=== PATIENT | female | born 1985 | race Caucasian/White ===

== ENCOUNTER → 2018-03-18 | Outpatient (CLI) | payer OTHER ==
[2018-03-18 09:30] LABS: ALT 25 U/L (9-52); AST 22 U/L (14-36); Albumin 4.2 g/dL (3.5-5.0); Alkaline Phosphatase 81 U/L (38-126); Blood Urea Nitrogen 19 mg/dL (7-17); Carbon Dioxide 27 mmol/L (22-30); Cholesterol 193 mg/dL (<200); Glucose 84 mg/dL (74-99); HDL Cholesterol 57 mg/dL (40-60); LDL Cholesterol,Calculated 108 mg/dL (0-99); Potassium 4.3 mmol/L (3.5-5.1); Sodium 144 mmol/L (137-145); Total Bilirubin 0.5 mg/dL (0.2-1.3); Triglycerides 139 mg/dL (<150)
[2018-03-18 09:34] LABS: Anion Gap 13 mmol/L; Chloride 104 mmol/L (98-107)
== END | disposition home or self-care (01) ==
LOC: LABWHC1 08:37
PROVIDERS: ATTEND Physician Assistant Medical
DX: I63.9 Cerebral infarction, unspecified (principal)
CPT/HCPCS: 36415; 80053; 80061

== ENCOUNTER → 2018-09-22 | Outpatient (CLI) | payer OTHER ==
[~2018-09-22] MED LIST: REGADENOSON 0.4 MG/5 ML SYRINGE IV ONE
[2018-09-22 08:37] LABS: Basophils % (A) 1 %; Eosinophils # (A) 0.1 k/uL (0-0.7); Eosinophils % (A) 2 %; HGB 14.2 gm/dL (11.4-16.0); Lymphocytes # (A) 1.4 k/uL (1.0-4.8); Lymphocytes % (A) 27 %; MCH 30.1 pg (25.0-35.0); MCHC 31.5 g/dL (31.0-37.0); MCV 95.5 fL (80.0-100.0); Mean Platelet Volume 7.1; Monocytes # (A) 0.3 k/uL (0-1.0); Monocytes % (A) 6 %; Neutrophils # (A) 3.3 k/uL (1.3-7.7); Neutrophils % (A) 63 %; Platelet Count 239 k/uL (150-450); RBC 4.71 m/uL (3.80-5.40); RDW 13.9 % (11.5-15.5); WBC 5.3 k/uL (3.8-10.6)
[2018-09-22 08:56] LABS: Anion Gap 8 mmol/L; Blood Urea Nitrogen 20 mg/dL (7-17); Calcium 9.8 mg/dL (8.4-10.2); Carbon Dioxide 24 mmol/L (22-30); Chloride 107 mmol/L (98-107); Cholesterol 161 mg/dL (<200); Glucose 88 mg/dL (74-99); HDL Cholesterol 52 mg/dL (40-60); LDL Cholesterol,Calculated 100 mg/dL (0-99); Potassium 4.4 mmol/L (3.5-5.1); Sodium 139 mmol/L (137-145); Triglycerides 45 mg/dL (<150)
--- NOTE | 2018-09-22 10:38 | ECHOF ---
Referral Reason:I47.1 Supraventricular tachycardia MEASUREMENTS -------- HEIGHT: 137.2 cm WEIGHT: 68.0 kg BP: RVIDd: 2.5 cm (< 3.3) IVSd: 0.8 cm (0.6 - 1.1) LVIDd: 4.3 cm (3.9 - 5.3) LVPWd: 0.8 cm (0.6 - 1.1) IVSs: 1.0 cm LVIDs: 3.2 cm LVPWs: 1.1 cm LA Diam: 2.5 cm (2.7 - 3.8) Ao Diam: 2.6 cm (2.0 - 3.7) AV Cusp: 1.6 cm (1.5 - 2.6) LA Diam: 2.8 cm (2.7 - 3.8) MV EXCURSION: 19.132 mm (> 18.000) MV EF SLOPE: 93 mm/s (70 - 150) EPSS: 0.5 cm MV E Octaviano: 0.69 m/s MV DecT: 258 ms MV A Octaviano: 0.50 m/s MV E/A Ratio: 1.38 RAP: 5.00 mmHg RVSP: 10.82 mmHg FINDINGS -------- Sinus rhythm. This was a technically good study. LV size, wall thickness and systolic function are normal, with an EF greater than 55%. The left markus tricular size is normal. The right ventricle is normal in size. The left atrial size is normal. The right atrial size is normal. The aortic valve is trileaflet, and appears structurally normal. No aortic stenosis or regurgitation. Mild mitral regurgitation is present. Mild tricuspid regurgitation present. There is no evidence of pulmonary hypertension. The right v entricular systolic pressure, as measured by Doppler, is 10.82mmHg. There is no pulmonic regurgitation present. The aortic root size is normal. There is no pericardial effusion. CONCLUSIONS -------- 1. LV size, wall thickness and systolic function are normal, with an EF greater than 55%. 2. The left ventricular size is normal. 3. The right ventricle is normal in size. 4. The left atrial size is normal. 5. The right atrial size is normal. 6. The aortic valve is trileaflet, and appears structurally normal. No aortic stenosis or regurgitati on. 7. Mild tricuspid regurgitation present. 8. There is no evidence of pulmonary hypertension. 9. The right ventricular systolic pressure, as measured by Doppler, is 10.82mmHg. 10. There is no pulmonic regurgitation present. 11. The aortic root size is normal. 12. There is no pericardial effusion. [employer] PROFESSOR: Maria L Gee RDCS
--- NOTE | 2018-09-22 11:04 | EST ---
EXERCISE STRESS AGE: 33 SEX: F HT: 5'4" WT: 150 PROTOCOL: Lexiscan Cardiolite Stress Test HEART RATE REST: 69 BLOOD PRESSURE REST: 114/81 MAXIMUM HEART RATE ACHIEVED: 131 MAXIMUM BLOOD PRESSURE: 128/65 INDICATIONS: Exertional dizziness and difficulty in breathing. CLINICAL INFORMATION: Baseline EKG shows sinus rhythm, normal axis, normal intervals. The patient was given intravenous Lexiscan as per protocol, developed extensive T-wave inversions in the inferolateral leads, which normalized in recovery. CONCLUSION: 1. Abnormal stress test by EKG criteria. 2. Cardiolite portion of the stress test will be reported separately. MMODL / IJN: [id number] /
--- NOTE | 2018-09-22 13:56 | NM ---
EXAMINATION TYPE: NM stress lexiscan cardiolite DATE OF EXAM: 09/22/2018 COMPARISON: NONE HISTORY: Supraventricular tachycardia and vertigo on exertion TECHNIQUE: After the intravenous administration of 10.2 mCi Tc 99m Sestamibi - Cardiolite resting SP ECT images acquired 45 minutes post injection. The patient received 0.4mg Lexiscan, 24.7 mCi Tc 99m Sestamibi - Stress images obtained [address] injection FINDINGS: Review of stress and rest SPECT images demonstrates no distinct perfusion abnormality. Few artifact artifactual regions are seen within the apex, lateral wall and inferior wall that are greater on rest than stress without wall motion abnormality. Gated analysis shows normal wall motion with an estimated left ventricular ejection fraction of 63 %. TID is calculated at 1.09. IMPRESSION: No scintigraphic evidence for reversible ischemia.
== END | disposition home or self-care (01) ==
LOC: RADNMMAIN 07:38
PROVIDERS: ATTEND Internal Medicine Cardiovascular Disease
DX: I07.1 Rheumatic tricuspid insufficiency (principal); R94.39 Abnormal result of other cardiovascular function study; I47.1 Supraventricular tachycardia; I95.1 Orthostatic hypotension; I63.9 Cerebral infarction, unspecified
CPT/HCPCS: 93017; 93306; 80061; 80048; 85027; 78452; 36415; A9500; J2785; 85025

== ENCOUNTER 2018-12-10 18:44 | Emergency (ER) | payer BC, OTHER ==
--- NOTE | 2018-12-10 19:08 | ED ---
Psych HPI - General Chief Complaint: Psychiatric Symptoms Stated Complaint: Hearing Voices/Suicidal Time Seen by Provider: 12/10/18 18:50 Source: patient, RN notes reviewed, old records reviewed Mode of arrival: ambulatory - History of Present Illness Initial Comments: Patient is a 33-year-old female with a history of previous psychosis and mental health diagnoses presents today with hearing voices. She is also had one episode of suicidal thoughts but no intention or plan. Patient states that she started hearing voices on Tuesday. She is recently had her medications adjusted by Dr. Fish 3 weeks ago. Patient states that she is concerned with hearing voices that she may have worsening episodes and concerned that she may act out on her suicidal thoughts. Patient is here with her . She has been to [facility] in the past. Patient has had no physical complaints at this time. She's had good sleep and normal appetite. - Related Data Home Medications Medication Instructions Recorded Confirmed Aspirin [[place] Aspirin EC] 81 mg PO DAILY 12/10/18 12/10/18 Cariprazine HCl [Vraylar] 3 mg PO DAILY 12/10/18 12/10/18 FLUoxetine HCL [PROzac] 20 mg PO DAILY 12/10/18 12/10/18 Spironolactone 25 mg PO HS 12/10/18 12/10/18 traZODone HCL 50 mg PO HS 12/10/18 12/10/18 Allergies Allergy/AdvReac Type Severity Reaction Status Date / Time No Known Allergies Allergy Verified 12/10/18 19:41 Review of Systems ROS Statement: Those systems with pertinent positive or pertinent negative responses have been documented in the HPI. ROS Other: All systems not noted in ROS Statement are negative. Past Medical History Past Medical History: No Reported History Additional Past Medical History / Comment(s): psychosis History of Any Multi-Drug Resistant Organisms: None Reported Past Surgical History: Unable to Obtain Additional Past Surgical History / Comment(s): 3- c-sections, wisdom teeth removed Past Anesthesia/Blood Transfusion Reactions: No Reported Reaction Past Psychological History: Bipolar, Depression Smoking Status: Former smoker Past Alcohol Use History: None Reported Past Drug Use History: None Reported - Past Family History Father Family Medical History: No Reported History Additional Family Medical History / Comment(s): Father is alive with no major medical problems. Mother Family Medical History: No Reported History Additional Family Medical History / Comment(s): Mother is alive with no major medical problems. Brother(s) Additional Family Medical History / Comment(s): She has one sister with no healthe problems and one brother that at age 16 years from MVA. General Exam - General Exam Comments Initial Comments: This Patient is a 33-year-old female. Alert and oriented. No acute distress. Limitations: no limitations General appearance: alert, in no apparent distress Head exam: Present: atraumatic, normocephalic, normal inspection Eye exam: Present: normal appearance, PERRL, EOMI. Absent: scleral icterus, conjunctival injection, periorbital swelling ENT exam: Present: normal exam, mucous membranes moist Neck exam: Present: normal inspection. Absent: tenderness, meningismus, lymphadenopathy Respiratory exam: Present: normal lung sounds bilaterally. Absent: respiratory distress, wheezes, rales, rhonchi, stridor Cardiovascular Exam: Present: regular rate, normal rhythm, normal heart sounds. Absent: systolic murmur, diastolic murmur, rubs, gallop, clicks GI/Abdominal exam: Present: soft, normal bowel sounds. Absent: distended, tenderness, guarding, rebound, rigid Extremities exam: Present: normal inspection, full ROM, normal capillary refill. Absent: tenderness, pedal edema, joint swelling, calf tenderness Back exam: Present: normal inspection Neurological exam: Present: alert, oriented X3, CN II-XII intact Psychiatric exam: Present: flat affect, other (Patient reports hearing voices. But no obvious signs of responding to internal stimuli.). Absent: normal affect (Flat affect.), normal mood Course Vital Signs 12/10/18 18:46 Temperature 98.3 F Pulse Rate 83 Respiratory 16 Rate Blood Pressure 114/77 O2 Sat by Pulse 97 Oximetry Medical Decision Making - Medical Decision Making 33-year-old female presents for is his pharmacy with hearing voices. And fleeting suicidal thoughts. No intent or plan. At this time Patient was evaluated by [facility]. Patient is set on going [facility]. They do not have a bed available this evening. Patient will have a bed tomorrow morning. Packet was sent to [facility]. Family prefers to bring the Patient home this evening and will drive right just [facility] in the morning. Patient is safe to go home with her . She is very self-aware of her meeting inpatient treatment. Patient's family and Patient have been advised on strict return parameters. The Patient returned Patient was to have any outbursts or concerning behavior. Patient states case discussed with EPS and Dr. Quiros. Disposition Clinical Impression: Auditory hallucination Disposition: HOME SELF-CARE Condition: Good Instructions: Psychiatric Hallucinations (ED) Additional Instructions: Patient is advised to go to [facility] tomorrow morning as directed. Patient is to have any concerning signs of altered mental status or worsening psychosis , do not hesitate to call EMS and bring the Patient in for reevaluation. Patient should have very close follow-up with primary care physician as well. Is patient prescribed a controlled substance at d/c from ED?: No Referrals: Nathanael Flaherty DO [Primary Care Provider] - 1-2 days Time of Disposition: 20:30
[2018-12-10 21:04] VITALS: BP 113/73; PULSE 89; RESP 18; TEMP 97.8
[2018-12-10 21:10] LABS: Appearance,Urine Cloudy (Clear); Bacteria,Urine Few /hpf; Bilirubin,Urine Negative (Negative); Blood,Urine Negative (Negative); Color,Urine Yellow; Glucose,Urine (UA) Negative (Negative); Hyaline Casts,Urine 3 /lpf (0-2); Ketones,Urine 1+ (Negative); Leukocyte Esterase,Urine Negative (Negative); Mucus,Urine Many /hpf; Nitrite,Urine Negative (Negative); PH, Urine 5.5 (5.0-8.0); Protein,Urine Negative (Negative); Specific Gravity,Urine 1.008 (1.001-1.035); Squamous Epithelial Cell,Urine 9 /hpf (0-4); Urobilinogen,Urine <2.0 mg/dL (<2.0); WBC,Urine 5 /hpf (0-5)
[2018-12-10 21:15] LABS: Amphetamine Screen,Urine Not Detected (NotDetected); Barbiturate Screen,Urine Not Detected (NotDetected); Benzodiazepines Screen,Urine Not Detected (NotDetected); Cocaine Screen,Urine Not Detected (NotDetected); Methadone Screen, Urine Not Detected (NotDetected); Opiate Screen,Urine Not Detected (NotDetected); Oxycodone Screen, Urine Not Detected (NotDetected); Phencyclidine Screen,Urine Not Detected (NotDetected); Tricyclic Antidepressant,Urine Not Detected (NotDetected); Urn Cannabinoid Scrn Not Detected (NotDetected)
== END 2018-12-10 20:56 | disposition home or self-care (01) ==
LOC: EC 18:44
DX: R44.0 Auditory hallucinations (principal); R45.851 Suicidal ideations; F32.9 Major depressive disorder, single episode, unspecified; Z87.891 Personal history of nicotine dependence; Z79.82 Long term (current) use of aspirin; Z79.899 Other long term (current) drug therapy
CPT/HCPCS: 80306; 81001; 81025; 82075; 99285

== ENCOUNTER → 2019-02-08 | Outpatient (CLI) | payer BC ==
[2019-02-08 10:15] LABS: HCT 42.6 % (34.0-46.0); HGB 13.7 gm/dL (11.4-16.0); MCH 29.8 pg (25.0-35.0); MCHC 32.1 g/dL (31.0-37.0); MCV 92.9 fL (80.0-100.0); Mean Platelet Volume 7.4; Platelet Count 258 k/uL (150-450); RBC 4.58 m/uL (3.80-5.40); RDW 13.3 % (11.5-15.5)
[2019-02-08 11:59] LABS: Neutrophils % (M) 7 %
[2019-02-08 12:00] LABS: Band Neutrophils % 1 %; Basophils # (M) 0.03 k/uL (0-0.2); Lymphocytes # (M) 0.81 k/uL (1.0-4.8); Monocytes # (M) 0.36 k/uL (0-1.0)
[2019-02-08 13:07] LABS: Nucleated Red Blood Cells 0 /100 WBC (0-0); Total Cells Counted 100
[2019-02-09 08:31] LABS: WBC 1.3 k/uL (3.8-10.6)
[2019-02-10 12:20] LABS: HCT 41.2 % (34.0-46.0); MCHC 31.6 g/dL (31.0-37.0); MCV 91.7 fL (80.0-100.0); Mean Platelet Volume 7.4; Platelet Count 243 k/uL (150-450); RDW 13.1 % (11.5-15.5)
[2019-02-10 12:26] LABS: WBC 1.4 k/uL (3.8-10.6)
[2019-02-10 14:45] LABS: Neutrophils % (M) 4 %
[2019-02-10 14:48] LABS: Lymphocytes # (M) 0.87 k/uL (1.0-4.8); Monocytes # (M) 0.48 k/uL (0-1.0); Neutrophils # (M) 0.06 k/uL (1.3-7.7); Nucleated Red Blood Cells 0 /100 WBC (0-0); Total Cells Counted 100
== END | disposition home or self-care (01) ==
LOC: LABWHC1 09:25
PROVIDERS: ATTEND Physician Assistant
DX: F29 Unspecified psychosis not due to a substance or known physiological condition (principal)
CPT/HCPCS: 36415; 85025

== ENCOUNTER 2019-06-01 19:28 | Emergency (ER) | payer BC ==
[2019-06-01 19:44] VITALS: TEMP 97.5
[2019-06-01] MEDS ORDERED: KETOROLAC 30 MG/ML 1 ML VIAL IVP STA (20:18)
[2019-06-01] MEDS ORDERED: SODIUM CHLORIDE 0.9% 1,000 ML IV STA ×2 (20:18)
--- NOTE | 2019-06-01 20:22 | ED ---
General Adult HPI - General Chief complaint: Psychiatric Symptoms Stated complaint: Pelvic pain Time Seen by Provider: 06/01/19 19:56 Source: patient, RN notes reviewed, old records reviewed Mode of arrival: ambulatory Limitations: no limitations - History of Present Illness Initial comments: Patient is a 34-year-old female who presents emergency Department today with complaints of pelvic pain, abdominal distention and fullness for the past 2 weeks. Patient reports that she's had no fevers or chills. Patient states that she had her menstrual cycle one week ago. Patient states that she reports that was normal per time. She denies any dysuria. She states she does have a fullness within her vaginal vault. - Related Data Home Medications Medication Instructions Recorded Confirmed Aspirin [[place] Aspirin EC] 81 mg PO DAILY 12/10/18 06/01/19 Cariprazine HCl [Vraylar] 3 mg PO HS 12/10/18 06/01/19 traZODone HCL 50 mg PO HS 12/10/18 06/01/19 Atorvastatin [Lipitor] 40 mg PO DAILY 06/01/19 06/01/19 Calio Carbonate 300 mg PO TID 06/01/19 06/01/19 Spironolactone [Aldactone] 50 mg PO DAILY 06/01/19 06/01/19 Venlafaxine HCl ER [Effexor Xr] 150 mg PO DAILY 06/01/19 06/01/19 valACYclovir [Valtrex] 1,000 mg PO TID 06/01/19 06/01/19 Allergies Allergy/AdvReac Type Severity Reaction Status Date / Time No Known Allergies Allergy Verified 06/01/19 21:23 Review of Systems ROS Statement: Those systems with pertinent positive or pertinent negative responses have been documented in the HPI. ROS Other: All systems not noted in ROS Statement are negative. Past Medical History Past Medical History: No Reported History Additional Past Medical History / Comment(s): psychosis, History of Any Multi-Drug Resistant Organisms: None Reported Past Surgical History: Unable to Obtain Additional Past Surgical History / Comment(s): 3- c-sections, wisdom teeth removed, Past Anesthesia/Blood Transfusion Reactions: No Reported Reaction Past Psychological History: Bipolar, Depression, Schizophrenia Smoking Status: Former smoker Past Alcohol Use History: None Reported Past Drug Use History: None Reported - Past Family History Father Family Medical History: No Reported History Additional Family Medical History / Comment(s): Father is alive with no major medical problems. Mother Family Medical History: No Reported History Additional Family Medical History / Comment(s): Mother is alive with no major medical problems. Brother(s) Additional Family Medical History / Comment(s): She has one sister with no healthe problems and one brother that at age 16 years from MVA. General Exam - General Exam Comments Initial Comments: Ur and oriented 34-year-old female. No significant distress. Limitations: no limitations General appearance: alert, in no apparent distress Head exam: Present: atraumatic, normocephalic, normal inspection, other (Thinning hair noted) Eye exam: Present: normal appearance, PERRL, EOMI. Absent: scleral icterus, conjunctival injection, periorbital swelling ENT exam: Present: normal exam, mucous membranes moist Neck exam: Present: normal inspection. Absent: tenderness, meningismus, lymphadenopathy Respiratory exam: Present: normal lung sounds bilaterally. Absent: respiratory distress, wheezes, rales, rhonchi, stridor Cardiovascular Exam: Present: regular rate, normal rhythm, normal heart sounds. Absent: systolic murmur, diastolic murmur, rubs, gallop, clicks GI/Abdominal exam: Present: soft, normal bowel sounds, other (Protuberant lower abdomen.). Absent: distended, tenderness, guarding, rebound, rigid External exam: Present: normal external exam Speculum exam: Present: normal speculum exam By manual exam: Present: normal by manual exam. Absent: cervical motion tenderness, adnexal tenderness Extremities exam: Present: normal inspection, full ROM, normal capillary refill. Absent: tenderness, pedal edema, joint swelling, calf tenderness Back exam: Present: normal inspection Neurological exam: Present: alert Psychiatric exam: Present: normal affect, normal mood Course Vital Signs 06/01/19 06/01/19 06/01/19 19:35 21:52 22:46 Temperature 97.5 F L Pulse Rate 105 H 88 85 Respiratory 18 19 18 Rate Blood Pressure 113/77 110/77 107/76 O2 Sat by Pulse 95 98 96 Oximetry Medical Decision Making - Medical Decision Making His is a 34-year-old female presents for instructed lower pelvic pain starting tonight as well as diffuse abdominal bloating for the past few weeks. Patient is concerned more internal problems related to this. Patient at this time that she had a last menstrual period approximately one week ago and that was normal. Patient's labwork was reviewed today and unremarkable. With lower pelvic fullness and abdominal pain consider possibility of ovarian or uterine mass. Computed tomography scan reveals is completed and this is negative for any acute process. Discussed likely related to fatty tissue distended abdomen. Patient will follow-up with her [facility] and close PCP. Questions answered. Return parameters discussed. - Lab Data Result diagrams: 06/01/19 20:40 06/01/19 20:40 Lab Results 06/01/19 06/01/19 06/01/19 Range/Units 19:30 19:30 20:40 WBC (3.8-10.6) k/uL RBC (3.80-5.40) m/uL Hgb (11.4-16.0) gm/dL Hct (34.0-46.0) % MCV (80.0-100.0) fL MCH (25.0-35.0) pg MCHC (31.0-37.0) g/dL RDW (11.5-15.5) % Plt Count (150-450) k/uL Neutrophils % % Lymphocytes % % Monocytes % % Eosinophils % % Basophils % % Neutrophils # (1.3-7.7) k/uL Lymphocytes # (1.0-4.8) k/uL Monocytes # (0-1.0) k/uL Eosinophils # (0-0.7) k/uL Basophils # (0-0.2) k/uL Sodium 138 (137-145) mmol/L Potassium 4.2 (3.5-5.1) mmol/L Chloride 103 (98-107) mmol/L Carbon Dioxide 27 (22-30) mmol/L Anion Gap 8 mmol/L BUN 15 (7-17) mg/dL Creatinine 0.79 (0.52-1.04) mg/dL Est GFR (CKD-EPI)AfAm >90 (>60 ml/min/1.73 sqM) Est GFR (CKD-EPI)NonAf >90 (>60 ml/min/1.73 sqM) Glucose 95 (74-99) mg/dL Calcium 9.9 (8.4-10.2) mg/dL Total Bilirubin 0.3 (0.2-1.3) mg/dL AST 23 (14-36) U/L ALT 25 (9-52) U/L Alkaline Phosphatase 72 (38-126) U/L Total Protein 6.8 (6.3-8.2) g/dL Albumin 4.2 (3.5-5.0) g/dL Amylase 43 (30-110) U/L Lipase 66 (23-300) U/L Urine Color Light Yellow Urine Appearance Clear (Clear) Urine pH 6.5 (5.0-8.0) Ur Specific King 1.007 (1.001-1.035) Urine Protein Negative (Negative) Urine Glucose (UA) Negative (Negative) Urine Ketones Negative (Negative) Urine Blood Negative (Negative) Urine Nitrite Negative (Negative) Urine Bilirubin Negative (Negative) Urine Urobilinogen <2.0 (<2.0) mg/dL Ur Leukocyte Esterase Negative (Negative) Urine HCG, Qual Not Detected (Not Detectd) Trichomonas Ag (Rapid) (Negative) 06/01/19 06/01/19 Range/Units 20:40 20:50 WBC 7.2 (3.8-10.6) k/uL RBC 4.58 (3.80-5.40) m/uL Hgb 13.8 (11.4-16.0) gm/dL Hct 42.5 (34.0-46.0) % MCV 92.9 (80.0-100.0) fL MCH 30.1 (25.0-35.0) pg MCHC 32.4 (31.0-37.0) g/dL RDW 15.9 H (11.5-15.5) % Plt Count 212 (150-450) k/uL Neutrophils % 65 % Lymphocytes % 22 % Monocytes % 6 % Eosinophils % 4 % Basophils % 1 % Neutrophils # 4.7 (1.3-7.7) k/uL Lymphocytes # 1.6 (1.0-4.8) k/uL Monocytes # 0.4 (0-1.0) k/uL Eosinophils # 0.3 (0-0.7) k/uL Basophils # 0.1 (0-0.2) k/uL Sodium (137-145) mmol/L Potassium (3.5-5.1) mmol/L Chloride (98-107) mmol/L Carbon Dioxide (22-30) mmol/L Anion Gap mmol/L BUN (7-17) mg/dL Creatinine (0.52-1.04) mg/dL Est GFR (CKD-EPI)AfAm (>60 ml/min/1.73 sqM) Est GFR (CKD-EPI)NonAf (>60 ml/min/1.73 sqM) Glucose (74-99) mg/dL Calcium (8.4-10.2) mg/dL Total Bilirubin (0.2-1.3) mg/dL AST (14-36) U/L ALT (9-52) U/L Alkaline Phosphatase (38-126) U/L Total Protein (6.3-8.2) g/dL Albumin (3.5-5.0) g/dL Amylase (30-110) U/L Lipase (23-300) U/L Urine Color Urine Appearance (Clear) Urine pH (5.0-8.0) Ur Specific King (1.001-1.035) Urine Protein (Negative) Urine Glucose (UA) (Negative) Urine Ketones (Negative) Urine Blood (Negative) Urine Nitrite (Negative) Urine Bilirubin (Negative) Urine Urobilinogen (<2.0) mg/dL Ur Leukocyte Esterase (Negative) Urine HCG, Qual (Not Detectd) Trichomonas Ag (Rapid) Negative (Negative) - Radiology Data Radiology results: report reviewed Negative computed tomography scan of the abdomen and pelvis. Normal appendix. No evidence of pelvic mass and free fluid. Disposition Clinical Impression: Pelvic pain Disposition: HOME SELF-CARE Condition: Good Instructions (If sedation given, give patient instructions): Pelvic Pain (ED) Additional Instructions: Follow-up with your [facility] and primary care physician. Return to the emergency department if any alarming signs or symptoms occur. Is patient prescribed a controlled substance at d/c from ED?: No Referrals: Nathanael Flaherty DO [Primary Care Provider] - 1-2 days Time of Disposition: 22:27
[2019-06-01 20:54] LABS: Basophils # (A) 0.1 k/uL (0-0.2); Basophils % (A) 1 %; Eosinophils # (A) 0.3 k/uL (0-0.7); Eosinophils % (A) 4 %; HCT 42.5 % (34.0-46.0); HGB 13.8 gm/dL (11.4-16.0); Lymphocytes # (A) 1.6 k/uL (1.0-4.8); Lymphocytes % (A) 22 %; MCH 30.1 pg (25.0-35.0); MCHC 32.4 g/dL (31.0-37.0); MCV 92.9 fL (80.0-100.0); Monocytes # (A) 0.4 k/uL (0-1.0); Monocytes % (A) 6 %; Neutrophils # (A) 4.7 k/uL (1.3-7.7); Neutrophils % (A) 65 %; Platelet Count 212 k/uL (150-450); RBC 4.58 m/uL (3.80-5.40); RDW 15.9 % (11.5-15.5); WBC 7.2 k/uL (3.8-10.6)
[2019-06-01 21:02] LABS: ALT 25 U/L (9-52); AST 23 U/L (14-36); African American GFR (CKD) >90 (>60 ml/min/1.73 sqM); Albumin 4.2 g/dL (3.5-5.0); Alkaline Phosphatase 72 U/L (38-126); Amylase 43 U/L (30-110); Anion Gap 8 mmol/L; Blood Urea Nitrogen 15 mg/dL (7-17); Calcium 9.9 mg/dL (8.4-10.2); Carbon Dioxide 27 mmol/L (22-30); Chloride 103 mmol/L (98-107); Glucose 95 mg/dL (74-99); Lipase 66 U/L (23-300); Potassium 4.2 mmol/L (3.5-5.1); Sodium 138 mmol/L (137-145); Total Bilirubin 0.3 mg/dL (0.2-1.3); Total Protein 6.8 g/dL (6.3-8.2)
[2019-06-01 21:08] LABS: Appearance,Urine Clear (Clear); Bilirubin,Urine Negative (Negative); Blood,Urine Negative (Negative); Color,Urine Light Yellow; Glucose,Urine (UA) Negative (Negative); Ketones,Urine Negative (Negative); Leukocyte Esterase,Urine Negative (Negative); Nitrite,Urine Negative (Negative); PH, Urine 6.5 (5.0-8.0); Protein,Urine Negative (Negative); Specific Gravity,Urine 1.007 (1.001-1.035); Urobilinogen,Urine <2.0 mg/dL (<2.0)
--- NOTE | 2019-06-01 22:04 | CT ---
EXAMINATION TYPE: CT abdomen pelvis w con DATE OF EXAM: 06/01/2019 COMPARISON: None HISTORY: abdominal pain and distention, pelvic pain CT DLP: 729 mGycm Automated exposure control for dose reduction was used. TECHNIQUE: Helical acquisition of images was performed from the lung bases through the pelvis. CONTRAST: Performed without Oral Contrast and with IV Contrast, patient injected with 100 mL of Isovue 300. FINDINGS: Lung bases are clear. There is no pleural effusion. Liver spleen and stomach pancreas gallbladder hayden ear normal. Bile ducts are not dilated. There is no adrenal mass. Kidneys have normal size and contour. There is no hydronephrosis. Ureters a re not dilated. There is no retroperitoneal adenopathy. Bladder distends smoothly. Uterus is antevert ed. There is no free fluid in the pelvis. There is no evidence of pelvic mass. There is no mesenteric edema. There is no ascites or free air. The appendix appears normal. Lumbar vertebra have normal spacing and alignment. Bony pelvis is intact. There is no compression fra cture. There is no evidence of a bowel obstruction. There are no dilated loops. IMPRESSION: NEGATIVE CT SCAN ABDOMEN AND PELVIS. NORMAL APPENDIX.
[2019-06-01 22:49] VITALS: BP 107/76; PULSE 85; RESP 18
[2019-06-03 14:03] LABS: N. gonorrhoeae,PCR Negative (Neg,Equiv); Neisseria Source Vagina
[2019-06-03 14:20] LABS: C. trachomatis,PCR Negative (Neg,Equiv); Chlamydia trachomatis Source Vagina
== END 2019-06-01 22:49 | disposition home or self-care (01) ==
LOC: EC 19:28
DX: R10.2 Pelvic and perineal pain (principal); R14.0 Abdominal distension (gaseous); F32.9 Major depressive disorder, single episode, unspecified; F20.9 Schizophrenia, unspecified; Z87.891 Personal history of nicotine dependence; Z79.82 Long term (current) use of aspirin; Z79.899 Other long term (current) drug therapy
CPT/HCPCS: 82075; 36415; 80053; 82150; 83690; 85025; 81003; 81025; 87808; 87491; 87591; 87070; 87086; 87205; 74177; 99285; 96374; 96361 ×2; J1885; Q9967

== ENCOUNTER 2019-09-08 16:15 | Emergency (ER) | payer BC ==
[2019-09-08 16:37] VITALS: TEMP 98.5
[2019-09-08 16:54] VITALS: RESP 16
--- NOTE | 2019-09-08 17:08 | ED ---
General Adult HPI - General Chief complaint: Headache Stated complaint: Hand Tremors Time Seen by Provider: 09/08/19 16:36 Source: patient Mode of arrival: EMS Limitations: no limitations - History of Present Illness Initial comments: Patient is a 34-year-old female with history of CVA is presenting to emergency Department with a chief complaint of headache. Patient reports she developed a headache earlier today and it caused her already existing tremor in the left hand to be exacerbated. Patient reports the headache is located in the frontal region and radiates posteriorly to the parietal. Patient also reports some left-sided neck stiffness and tenderness without any trauma to the region. Patient denies any blurry vision, gait instability, one-sided paresthesias or muscle weakness. Patient denies any chest pain or shortness of breath. Patient does report nausea with no episodes of vomiting. Patient denies any photosensitivity. - Related Data Home Medications Medication Instructions Recorded Confirmed Aspirin [[place] Aspirin EC] 81 mg PO DAILY 12/10/18 06/01/19 Cariprazine HCl [Vraylar] 3 mg PO HS 12/10/18 06/01/19 traZODone HCL 50 mg PO HS 12/10/18 06/01/19 Atorvastatin [Lipitor] 40 mg PO DAILY 06/01/19 06/01/19 [place] Carbonate 300 mg PO TID 06/01/19 06/01/19 Spironolactone [Aldactone] 50 mg PO DAILY 06/01/19 06/01/19 Venlafaxine HCl ER [Effexor Xr] 150 mg PO DAILY 06/01/19 06/01/19 valACYclovir [Valtrex] 1,000 mg PO TID 06/01/19 06/01/19 Allergies Allergy/AdvReac Type Severity Reaction Status Date / Time No Known Allergies Allergy Verified 06/01/19 21:23 Review of Systems ROS Statement: Those systems with pertinent positive or pertinent negative responses have been documented in the HPI. ROS Other: All systems not noted in ROS Statement are negative. Past Medical History Past Medical History: CVA/TIA Additional Past Medical History / Comment(s): polycystic ovarian syndrome History of Any Multi-Drug Resistant Organisms: None Reported Past Surgical History: Unable to Obtain Additional Past Surgical History / Comment(s): 3- c-sections, wisdom teeth removed, thrombectomy Past Anesthesia/Blood Transfusion Reactions: No Reported Reaction Past Psychological History: Anxiety, Bipolar, Depression, Schizophrenia Smoking Status: Former smoker Past Alcohol Use History: None Reported Past Drug Use History: None Reported - Past Family History Father Family Medical History: No Reported History Additional Family Medical History / Comment(s): Father is alive with no major medical problems. Mother Family Medical History: No Reported History Additional Family Medical History / Comment(s): Mother is alive with no major medical problems. Brother(s) Additional Family Medical History / Comment(s): She has one sister with no healthe problems and one brother that at age 16 years from MVA. General Exam Limitations: no limitations General appearance: alert, in no apparent distress Head exam: Present: atraumatic, normocephalic, normal inspection Eye exam: Present: normal appearance, PERRL, EOMI Pupils: Present: normal accommodation ENT exam: Present: normal exam, normal oropharynx, mucous membranes moist, TM's normal bilaterally, normal external ear exam Neck exam: Present: normal inspection, full ROM Respiratory exam: Present: normal lung sounds bilaterally Cardiovascular Exam: Present: regular rate, normal rhythm, normal heart sounds Extremities exam: Present: normal inspection, full ROM Back exam: Present: normal inspection, full ROM Neurological exam: Present: alert, oriented X3, CN II-XII intact, normal gait, reflexes normal. Absent: altered Psychiatric exam: Present: normal affect, normal mood Skin exam: Present: warm, intact, normal color Course Vital Signs 09/08/19 09/08/19 16:25 16:52 Temperature 98.5 F Pulse Rate 86 87 Respiratory 18 16 Rate Blood Pressure 121/76 91/70 O2 Sat by Pulse 100 96 Oximetry Medical Decision Making - Medical Decision Making Patient is a 34-year-old male with history of CVA is presenting to emergency Department with chief complaint of headache. The headache started earlier today and is centigrays in severity. Patient was also concerned regarding her increased tremor in the left hand. Initial ventilation patient reports tremor has decreased her baseline. Patient does have bilateral upper extremity tremors which is controlled medication. Labs are unremarkable. CT of the brain and C- spine is negative. Old cerebral infarct noted as well. Patient given Benadryl Toradol and Zofran. Patient has no focal deficits. On reevaluation patient reports improvement in symptoms and complete resolution of the nausea. I suspect this to be a classical migraine headache. Considering this is a gradual onset of his symptoms I have low concern for acute intracranial hemorrhage. Strict return parameters were thoroughly discussed the patient is understanding and agreeable. Patient vised to follow-up with a neurologist. Case discussed physician. - Lab Data Result diagrams: 09/08/19 16:58 09/08/19 16:58 Lab Results 09/08/19 09/08/19 09/08/19 Range/Units 16:58 16:58 17:45 WBC 7.8 (3.8-10.6) k/uL RBC 4.36 (3.80-5.40) m/uL Hgb 14.5 (11.4-16.0) gm/dL Hct 42.4 (34.0-46.0) % MCV 97.0 (80.0-100.0) fL MCH 33.3 (25.0-35.0) pg MCHC 34.3 (31.0-37.0) g/dL RDW 12.2 (11.5-15.5) % Plt Count 273 (150-450) k/uL Neutrophils % 69 % Lymphocytes % 20 % Monocytes % 6 % Eosinophils % 3 % Basophils % 1 % Neutrophils # 5.4 (1.3-7.7) k/uL Lymphocytes # 1.6 (1.0-4.8) k/uL Monocytes # 0.4 (0-1.0) k/uL Eosinophils # 0.3 (0-0.7) k/uL Basophils # 0.1 (0-0.2) k/uL Sodium 140 (137-145) mmol/L Potassium 4.5 (3.5-5.1) mmol/L Chloride 105 (98-107) mmol/L Carbon Dioxide 27 (22-30) mmol/L Anion Gap 8 mmol/L BUN 13 (7-17) mg/dL Creatinine 0.75 (0.52-1.04) mg/dL Est GFR (CKD-EPI)AfAm >90 (>60 ml/min/1.73 sqM) Est GFR (CKD-EPI)NonAf >90 (>60 ml/min/1.73 sqM) Glucose 89 (74-99) mg/dL Calcium 10.3 H (8.4-10.2) mg/dL Total Bilirubin 0.4 (0.2-1.3) mg/dL AST 22 (14-36) U/L ALT 26 (9-52) U/L Alkaline Phosphatase 79 (38-126) U/L Total Protein 7.0 (6.3-8.2) g/dL Albumin 4.2 (3.5-5.0) g/dL Urine Color Yellow Urine Appearance Cloudy H (Clear) Urine pH 6.5 (5.0-8.0) Ur Specific [place] 1.013 (1.001-1.035) Urine Protein Negative (Negative) Urine Glucose (UA) Negative (Negative) Urine Ketones Negative (Negative) Urine Blood Negative (Negative) Urine Nitrite Negative (Negative) Urine Bilirubin Negative (Negative) Urine Urobilinogen <2.0 (<2.0) mg/dL Ur Leukocyte Esterase Negative (Negative) Urine WBC 2 (0-5) /hpf Ur Squamous Epith Cells 5 H (0-4) /hpf Urine Mucus Rare H (None) /hpf Disposition Clinical Impression: Headache Disposition: HOME SELF-CARE Condition: Stable Instructions (If sedation given, give patient instructions): Acute Headache (ED) Additional Instructions: Please follow up with neurology. Please return to emergency department if symptoms worsen. Is patient prescribed a controlled substance at d/c from ED?: No Referrals: Nathanael Flaherty DO [Primary Care Provider] - 1-2 days Time of Disposition: 20:03
[2019-09-08 17:46] LABS: Basophils # (A) 0.1 k/uL (0-0.2); Basophils % (A) 1 %; Eosinophils # (A) 0.3 k/uL (0-0.7); Eosinophils % (A) 3 %; HCT 42.4 % (34.0-46.0); HGB 14.5 gm/dL (11.4-16.0); Lymphocytes # (A) 1.6 k/uL (1.0-4.8); Lymphocytes % (A) 20 %; MCH 33.3 pg (25.0-35.0); MCHC 34.3 g/dL (31.0-37.0); Mean Platelet Volume 6.2; Monocytes # (A) 0.4 k/uL (0-1.0); Monocytes % (A) 6 %; Neutrophils # (A) 5.4 k/uL (1.3-7.7); Neutrophils % (A) 69 %; Platelet Count 273 k/uL (150-450); RBC 4.36 m/uL (3.80-5.40); RDW 12.2 % (11.5-15.5); WBC 7.8 k/uL (3.8-10.6)
[2019-09-08 18:01] LABS: ALT 26 U/L (9-52); AST 22 U/L (14-36); African American GFR (CKD) >90 (>60 ml/min/1.73 sqM); Albumin 4.2 g/dL (3.5-5.0); Alkaline Phosphatase 79 U/L (38-126); Anion Gap 8 mmol/L; Blood Urea Nitrogen 13 mg/dL (7-17); Calcium 10.3 mg/dL (8.4-10.2); Carbon Dioxide 27 mmol/L (22-30); Chloride 105 mmol/L (98-107); Glucose 89 mg/dL (74-99); Non-African American GFR(CKD) >90 (>60 ml/min/1.73 sqM); Potassium 4.5 mmol/L (3.5-5.1); Sodium 140 mmol/L (137-145); Total Bilirubin 0.4 mg/dL (0.2-1.3)
[2019-09-08 18:31] LABS: Appearance,Urine Cloudy (Clear); Bilirubin,Urine Negative (Negative); Blood,Urine Negative (Negative); Color,Urine Yellow; Glucose,Urine (UA) Negative (Negative); Ketones,Urine Negative (Negative); Leukocyte Esterase,Urine Negative (Negative); Mucus,Urine Rare /hpf; Nitrite,Urine Negative (Negative); PH, Urine 6.5 (5.0-8.0); Protein,Urine Negative (Negative); Specific Gravity,Urine 1.013 (1.001-1.035); Squamous Epithelial Cell,Urine 5 /hpf (0-4); Urobilinogen,Urine <2.0 mg/dL (<2.0); WBC,Urine 2 /hpf (0-5)
--- NOTE | 2019-09-08 19:04 | CT ---
EXAMINATION TYPE: CT brain wo con DATE OF EXAM: 09/08/2019 COMPARISON: 10/24/2016 HISTORY: Headache, tremors. PT hx stroke [address] DLP: 1113.4 mGycm. Automated Exposure Control for Dose Reduction was Utilized. TECHNIQUE: CT scan of the head is performed without contrast. 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 There is enlargement of frontal horn left lateral ventricle. There is no mass effect nor midline shift. There is no sign of intracranial hemorrhage. There is wedge-shaped area of hypodensity in the lateral left temporal lobe. There is left temporal craniotomy defect. IMPRESSION: Old left side left middle cerebral artery infarct. No acute intracranial abnormality.
[2019-09-08] MEDS ORDERED: ONDANSETRON 4 MG/2 ML VIAL IVP STA (19:09)
[2019-09-08] MEDS ORDERED: KETOROLAC 30 MG/ML 1 ML VIAL IVP STA (19:09)
[2019-09-08] MEDS ORDERED: diphenhydrAMINE 50 MG/ML 1 ML VIAL IVP STA (19:09)
[2019-09-08 21:07] VITALS: BP 112/57; PULSE 82
== END 2019-09-08 21:00 | disposition home or self-care (01) ==
LOC: EC 16:15
DX: R51 Headache (principal); R25.1 Tremor, unspecified; F31.9 Bipolar disorder, unspecified; F41.9 Anxiety disorder, unspecified; F20.9 Schizophrenia, unspecified; Z87.891 Personal history of nicotine dependence; Z79.82 Long term (current) use of aspirin; Z79.899 Other long term (current) drug therapy; Z86.73 Personal history of transient ischemic attack (TIA), and cerebral infarction without residual deficits
CPT/HCPCS: 36415; 93005; 80053; 85025; 81001; 70450; 99284; 96374; 96375 ×2; J1200; J2405; J1885

== ENCOUNTER → 2020-08-30 | Outpatient (CLI) | payer BC | END | disposition home or self-care (01) | LOC: LABMAIN 09:40 | PROVIDERS: ATTEND Family Medicine | DX: Z53.9 Procedure and treatment not carried out, unspecified reason (principal) ==

== ENCOUNTER 2022-05-18 20:01 | Emergency (ER) | payer MEDICARE, OTHER ==
[2022-05-18] MEDS ORDERED: SODIUM CHLORIDE 0.9% 500 ML 500 ML IV STA (20:11)
[2022-05-18] MEDS ORDERED: ASPIRIN 81 MG PO STA (20:12)
[2022-05-18 20:18] VITALS: TEMP 98.1
[2022-05-18] MEDS ORDERED: LORazepam 2 MG/ML INJ IV STA (20:20)
[2022-05-18 20:36] LABS: Basophils # (A) 0.1 k/uL (0-0.2); Basophils % (A) 1 %; Eosinophils # (A) 0.2 k/uL (0-0.7); Eosinophils % (A) 2 %; HCT 45.4 % (34.0-46.0); HGB 13.9 gm/dL (11.4-16.0); Hypochromasia Slight; Lymphocytes # (A) 1.4 k/uL (1.0-4.8); Lymphocytes % (A) 18 %; MCH 29.2 pg (25.0-35.0); MCHC 30.7 g/dL (31.0-37.0); MCV 95.1 fL (80.0-100.0); Mean Platelet Volume 7.7; Monocytes # (A) 0.4 k/uL (0-1.0); Monocytes % (A) 5 %; Neutrophils # (A) 5.8 k/uL (1.3-7.7); Neutrophils % (A) 73 %; Platelet Count 205 k/uL (150-450); RBC 4.77 m/uL (3.80-5.40); RDW 14.2 % (11.5-15.5)
--- NOTE | 2022-05-18 20:41 | ED ---
General Adult HPI - General Chief complaint: Shortness of Breath Stated complaint: Shortness of Breath Time Seen by Provider: 05/18/22 20:05 Source: EMS, RN notes reviewed, old records reviewed Mode of arrival: EMS Limitations: no limitations - History of Present Illness Initial comments: Patient is a 37-year-old female with past medical history remarkable for hemorrhagic stroke approximately 5 years ago with residual right lower extremity deficits whose mother is her guardian presents emergency Department complaining of a typical chest pain, shortness of breath that has been ongoing for the day today. States, worse when she is walking the bus stop. Called EMS to bring him to the emergency department. States it is right-sided. Has difficult time describing it. Endorses occasional cough. States it is worse with movement. Does have a history of anxiety, depression. Denies nausea, vomiting, abdominal pain. Denies constipation. Has no urinary complaints. States she is not . Does endorse some right lower extremity swelling that seems slightly worse on the left. No other acute complaints at this time. Presents for further evaluation at this time. - Related Data Home Medications Medication Instructions Recorded Confirmed Aspirin [[place] Aspirin EC] 81 mg PO DAILY 12/10/18 06/01/19 Cariprazine HCl [Vraylar] 3 mg PO HS 12/10/18 06/01/19 traZODone HCL 50 mg PO HS 12/10/18 06/01/19 Atorvastatin [Lipitor] 40 mg PO DAILY 06/01/19 06/01/19 [place] Carbonate 300 mg PO TID 06/01/19 06/01/19 Spironolactone [Aldactone] 50 mg PO DAILY 06/01/19 06/01/19 Venlafaxine HCl ER [Effexor Xr] 150 mg PO DAILY 06/01/19 06/01/19 valACYclovir HCL [Valtrex] 1,000 mg PO TID 06/01/19 06/01/19 Allergies Allergy/AdvReac Type Severity Reaction Status Date / Time No Known Allergies Allergy Verified 06/01/19 21:23 Review of Systems ROS Statement: Those systems with pertinent positive or pertinent negative responses have been documented in the HPI. Review of Systems: CONST: Denies fever EYES: Denies blurry vision ENT: Denies nasal congestion C/V: Endorses chest pain RESP: Endorses shortness of breath GI: Denies abdominal pain : Denies dysuria SKIN: Denies rash. MSK: Denies joint pain. NEURO: Denies headache ROS Other: All systems not noted in ROS Statement are negative. Past Medical History Past Medical History: CVA/TIA Additional Past Medical History / Comment(s): polycystic ovarian syndrome History of Any Multi-Drug Resistant Organisms: None Reported Past Surgical History: Unable to Obtain Additional Past Surgical History / Comment(s): 3- c-sections, wisdom teeth removed, thrombectomy Past Anesthesia/Blood Transfusion Reactions: No Reported Reaction Past Psychological History: Anxiety, Bipolar, Depression, Schizophrenia Past Alcohol Use History: None Reported Past Drug Use History: None Reported - Past Family History Father Family Medical History: No Reported History Additional Family Medical History / Comment(s): Father is alive with no major medical problems. Mother Family Medical History: No Reported History Additional Family Medical History / Comment(s): Mother is alive with no major medical problems. Brother(s) Additional Family Medical History / Comment(s): She has one sister with no healthe problems and one brother that at age 16 years from MVA. General Exam - General Exam Comments Initial Comments: General: Appears in no acute distress. HEAD: Normal with no signs of head trauma. EYES: PERRLA, EOMI, conjunctiva normal, no discharge. ENT: Hearing grossly intact, normal oropharynx. RESPIRATORY: Clear breath sounds bilaterally. No wheezes, rales, or rhonchi. C/V: Mildly tachycardic with a regular rhythm.. S1 and S2 auscultated, 1+ pitting edema, slightly worse in the right versus left. Does appear to be bilateral., peripheral pulses 2+ and intact throughout. Chest pain is reproducible somewhat on palpation. ABD: Abd is soft, nontender, nondistended EXT: Normal range of motion, no obvious deformity SKIN: No rashes or lesions observed on exposed skin. NEURO: Alert and oriented 4. No focal deficits. Limitations: no limitations Course Vital Signs 05/18/22 05/18/22 20:15 20:37 Temperature 98.1 F Pulse Rate 108 H Respiratory 16 23 Rate Blood Pressure 139/86 O2 Sat by Pulse 99 Oximetry Medical Decision Making - Medical Decision Making Based on the patient's presentation and physical exam, I'm concerned for what appears to be likely anxiety versus possible early pulmonary etiology for her current symptoms. She is somewhat a poor historian and therefore we will obtain a cardiopulmonary workup. She'll be given Ativan as well as aspirin. Patient was in agreement this plan. I did discuss the workup with the patient's ago guarding, her mother Anais who is also in agreement with this plan. States the patient does have the tendency to get anxious and then work herself. Vital signs within normal limits. EKG shows no signs of acute ischemia.Chest x- ray shows no acute cardio primary process. Laboratory studies are remarkable for an undetectable d-dimer, and undetectable troponin. Patient is not . Urinalysis is unremarkable. Negative for COVID-19 influenza. On reevaluation, vital signs are within normal limits. She is feeling improved. She would like to go home. I believe this is reasonable. I spoke with the patient's mother again, expressed understanding of the negative workup. Was in agreement with the ride home. We'll arrange for transport home. I instructed the patient to follow up with their PCP in the next 3 days. I explained that the patient should return to the emergency department if they experience any worsening symptoms. Strict return precautions were discussed with the patient. The patient expressed understanding of these instructions. I answered all questions that the patient had. The patient was discharged home in good condition with their prescriptions and follow up information. - Lab Data Result diagrams: 05/18/22 20:32 05/18/22 20:32 Lab Results 05/18/22 05/18/22 05/18/22 Range/Units 20:32 20:32 20:32 WBC 8.0 (3.8-10.6) k/uL RBC 4.77 (3.80-5.40) m/uL Hgb 13.9 (11.4-16.0) gm/dL Hct 45.4 (34.0-46.0) % MCV 95.1 (80.0-100.0) fL MCH 29.2 (25.0-35.0) pg MCHC 30.7 L (31.0-37.0) g/dL RDW 14.2 (11.5-15.5) % Plt Count 205 (150-450) k/uL MPV 7.7 Neutrophils % 73 % Lymphocytes % 18 % Monocytes % 5 % Eosinophils % 2 % Basophils % 1 % Neutrophils # 5.8 (1.3-7.7) k/uL Lymphocytes # 1.4 (1.0-4.8) k/uL Monocytes # 0.4 (0-1.0) k/uL Eosinophils # 0.2 (0-0.7) k/uL Basophils # 0.1 (0-0.2) k/uL Hypochromasia Slight PT 11.2 (9.0-12.0) sec INR 1.0 (<1.2) APTT 25.9 (22.0-30.0) sec D-Dimer <0.17 (<0.60) mg/L FEU Sodium 138 (137-145) mmol/L Potassium 4.0 (3.5-5.1) mmol/L Chloride 107 (98-107) mmol/L Carbon Dioxide 23 (22-30) mmol/L Anion Gap 8 mmol/L BUN 14 (7-17) mg/dL Creatinine 0.87 (0.52-1.04) mg/dL Est GFR (CKD-EPI)AfAm >90 (>60 ml/min/1.73 sqM) Est GFR (CKD-EPI)NonAf 84 (>60 ml/min/1.73 sqM) Glucose 121 H (74-99) mg/dL Calcium 9.4 (8.4-10.2) mg/dL Magnesium 2.2 (1.6-2.3) mg/dL Total Bilirubin 0.6 (0.2-1.3) mg/dL AST 38 H (14-36) U/L ALT 24 (4-34) U/L Alkaline Phosphatase 81 (38-126) U/L Troponin I (0.000-0.034) ng/mL NT-Pro-B Natriuret Pep pg/mL Total Protein 6.9 (6.3-8.2) g/dL Albumin 4.1 (3.5-5.0) g/dL Amylase 56 (30-110) U/L Lipase 29 (23-300) U/L HCG, Qual Not Detected Urine Color Urine Appearance (Clear) Urine pH (5.0-8.0) Ur Specific [place] (1.001-1.035) Urine Protein (Negative) Urine Glucose (UA) (Negative) Urine Ketones (Negative) Urine Blood (Negative) Urine Nitrite (Negative) Urine Bilirubin (Negative) Urine Urobilinogen (<2.0) mg/dL Ur Leukocyte Esterase (Negative) Coronavirus (PCR) (Not Detectd) Influenza Type A RNA (Not Detectd) Influenza Type B (PCR) (Not Detectd) 05/18/22 05/18/22 05/18/22 Range/Units 20:32 20:32 20:32 WBC (3.8-10.6) k/uL RBC (3.80-5.40) m/uL Hgb (11.4-16.0) gm/dL Hct (34.0-46.0) % MCV (80.0-100.0) fL MCH (25.0-35.0) pg MCHC (31.0-37.0) g/dL RDW (11.5-15.5) % Plt Count (150-450) k/uL MPV Neutrophils % % Lymphocytes % % Monocytes % % Eosinophils % % Basophils % % Neutrophils # (1.3-7.7) k/uL Lymphocytes # (1.0-4.8) k/uL Monocytes # (0-1.0) k/uL Eosinophils # (0-0.7) k/uL Basophils # (0-0.2) k/uL Hypochromasia PT (9.0-12.0) sec INR (<1.2) APTT (22.0-30.0) sec D-Dimer (<0.60) mg/L FEU Sodium (137-145) mmol/L Potassium (3.5-5.1) mmol/L Chloride (98-107) mmol/L Carbon Dioxide (22-30) mmol/L Anion Gap mmol/L BUN (7-17) mg/dL Creatinine (0.52-1.04) mg/dL Est GFR (CKD-EPI)AfAm (>60 ml/min/1.73 sqM) Est GFR (CKD-EPI)NonAf (>60 ml/min/1.73 sqM) Glucose (74-99) mg/dL Calcium (8.4-10.2) mg/dL Magnesium (1.6-2.3) mg/dL Total Bilirubin (0.2-1.3) mg/dL AST (14-36) U/L ALT (4-34) U/L Alkaline Phosphatase (38-126) U/L Troponin I <0.012 (0.000-0.034) ng/mL NT-Pro-B Natriuret Pep 51 pg/mL Total Protein (6.3-8.2) g/dL Albumin (3.5-5.0) g/dL Amylase (30-110) U/L Lipase (23-300) U/L HCG, Qual Urine Color Urine Appearance (Clear) Urine pH (5.0-8.0) Ur Specific [place] (1.001-1.035) Urine Protein (Negative) Urine Glucose (UA) (Negative) Urine Ketones (Negative) Urine Blood (Negative) Urine Nitrite (Negative) Urine Bilirubin (Negative) Urine Urobilinogen (<2.0) mg/dL Ur Leukocyte Esterase (Negative) Coronavirus (PCR) (Not Detectd) Influenza Type A RNA Not Detected (Not Detectd) Influenza Type B (PCR) Not Detected (Not Detectd) 05/18/22 05/18/22 Range/Units 20:32 20:47 WBC (3.8-10.6) k/uL RBC (3.80-5.40) m/uL Hgb (11.4-16.0) gm/dL Hct (34.0-46.0) % MCV (80.0-100.0) fL MCH (25.0-35.0) pg MCHC (31.0-37.0) g/dL RDW (11.5-15.5) % Plt Count (150-450) k/uL MPV Neutrophils % % Lymphocytes % % Monocytes % % Eosinophils % % Basophils % % Neutrophils # (1.3-7.7) k/uL Lymphocytes # (1.0-4.8) k/uL Monocytes # (0-1.0) k/uL Eosinophils # (0-0.7) k/uL Basophils # (0-0.2) k/uL Hypochromasia PT (9.0-12.0) sec INR (<1.2) APTT (22.0-30.0) sec D-Dimer (<0.60) mg/L FEU Sodium (137-145) mmol/L Potassium (3.5-5.1) mmol/L Chloride (98-107) mmol/L Carbon Dioxide (22-30) mmol/L Anion Gap mmol/L BUN (7-17) mg/dL Creatinine (0.52-1.04) mg/dL Est GFR (CKD-EPI)AfAm (>60 ml/min/1.73 sqM) Est GFR (CKD-EPI)NonAf (>60 ml/min/1.73 sqM) Glucose (74-99) mg/dL Calcium (8.4-10.2) mg/dL Magnesium (1.6-2.3) mg/dL Total Bilirubin (0.2-1.3) mg/dL AST (14-36) U/L ALT (4-34) U/L Alkaline Phosphatase (38-126) U/L Troponin I (0.000-0.034) ng/mL NT-Pro-B Natriuret Pep pg/mL Total Protein (6.3-8.2) g/dL Albumin (3.5-5.0) g/dL Amylase (30-110) U/L Lipase (23-300) U/L HCG, Qual Urine Color Yellow Urine Appearance Clear (Clear) Urine pH 6.0 (5.0-8.0) Ur Specific [place] 1.015 (1.001-1.035) Urine Protein Negative (Negative) Urine Glucose (UA) Negative (Negative) Urine Ketones Negative (Negative) Urine Blood Negative (Negative) Urine Nitrite Negative (Negative) Urine Bilirubin Negative (Negative) Urine Urobilinogen <2.0 (<2.0) mg/dL Ur Leukocyte Esterase Negative (Negative) Coronavirus (PCR) Not Detected (Not Detectd) Influenza Type A RNA (Not Detectd) Influenza Type B (PCR) (Not Detectd) - EKG Data -: EKG Interpreted by Me EKG Comments: 12-lead Electrocardiogram Interpretation Note EKG was reviewed and interpreted by myself. 12-lead ECG performed at 2013 is interpreted by me as revealing sinus tachycardia at a rate of 108 beats per minute. Kenneth is normal. [place] intervals 187 ms, QRS duration is 92 ms, QTc is 421 ms.. There were no ST or T wave abnormalities to suggest myocardial ischemia or injury. R wave progression across the precordium was satisfactory. By my interpretation this EKG is non-diagnostic for acute ischemia. Disposition Clinical Impression: Atypical chest pain, Anxiety Disposition: HOME SELF-CARE Condition: Good Is patient prescribed a controlled substance at d/c from ED?: No Referrals: Nathanael Flaherty DO [Primary Care Provider] - 1-2 days Time of Disposition: 22:00
[2022-05-18 20:43] LABS: HCG,Qualitative Serum Not Detected
[2022-05-18 20:46] LABS: ALT 24 U/L (4-34); AST 38 U/L (14-36); African American GFR (CKD) >90 (>60 ml/min/1.73 sqM); Albumin 4.1 g/dL (3.5-5.0); Alkaline Phosphatase 81 U/L (38-126); Amylase 56 U/L (30-110); Anion Gap 8 mmol/L; Blood Urea Nitrogen 14 mg/dL (7-17); Calcium 9.4 mg/dL (8.4-10.2); Carbon Dioxide 23 mmol/L (22-30); Chloride 107 mmol/L (98-107); Glucose 121 mg/dL (74-99); Lipase 29 U/L (23-300); Magnesium 2.2 mg/dL (1.6-2.3); Non-African American GFR(CKD) 84 (>60 ml/min/1.73 sqM); Sodium 138 mmol/L (137-145); Total Bilirubin 0.6 mg/dL (0.2-1.3); Total Protein 6.9 g/dL (6.3-8.2)
[2022-05-18 20:51] LABS: Partial Thromboplastin Time 25.9 sec (22.0-30.0); Prothrombin Time 11.2 sec (9.0-12.0)
--- NOTE | 2022-05-18 21:17 | XR ---
EXAMINATION TYPE: XR chest 2V DATE OF EXAM: 05/18/2022 COMPARISON: 10/24/2016 HISTORY: Difficulty breathing TECHNIQUE: FINDINGS: Heart and mediastinum are normal. Lungs are clear of infiltrate. No heart failure. There ar e chest leads. Bony thorax is intact. IMPRESSION: No active cardiopulmonary disease. Normal heart. No change.
[2022-05-18 21:59] LABS: Appearance,Urine Clear (Clear); Bilirubin,Urine Negative (Negative); Blood,Urine Negative (Negative); Color,Urine Yellow; Glucose,Urine (UA) Negative (Negative); Ketones,Urine Negative (Negative); Leukocyte Esterase,Urine Negative (Negative); Nitrite,Urine Negative (Negative); Protein,Urine Negative (Negative); Specific Gravity,Urine 1.015 (1.001-1.035); Urobilinogen,Urine <2.0 mg/dL (<2.0)
[2022-05-18 22:25] VITALS: BP 123/75; PULSE 96; RESP 20
== END 2022-05-18 22:25 | disposition home or self-care (01) ==
LOC: EC 20:01
DX: F41.9 Anxiety disorder, unspecified (principal); Z20.822 Contact with and (suspected) exposure to COVID-19; Z86.73 Personal history of transient ischemic attack (TIA), and cerebral infarction without residual deficits; R07.89 Other chest pain
CPT/HCPCS: 36415; 85379; 83880; 80053; 82150; 83690; 83735; 84484; 85025; 85610; 85730; 81003; 84703; 87502; 87635; 71046; 99285; 96374; 96361; J2060

== ENCOUNTER 2022-05-27 23:52 | Observation (INO) | payer MEDICARE, OTHER ==
[2022-05-28 00:18] VITALS: TEMP 97.8
--- NOTE | 2022-05-28 00:50 | ED ---
Arrhythmia/Palpitations HPI - General Chief Complaint: Arrhythmia/Palpitations Stated Complaint: Anxiety Time Seen by Provider: 05/28/22 00:05 Source: patient, EMS Mode of arrival: EMS Limitations: no limitations - Related Data Home Medications Medication Instructions Recorded Confirmed Aspirin [[place] Aspirin EC] 81 mg PO DAILY 12/10/18 06/01/19 Cariprazine HCl [Vraylar] 3 mg PO HS 12/10/18 06/01/19 traZODone HCL 50 mg PO HS 12/10/18 06/01/19 Atorvastatin [Lipitor] 40 mg PO DAILY 06/01/19 06/01/19 [place] Carbonate 300 mg PO TID 06/01/19 06/01/19 Spironolactone [Aldactone] 50 mg PO DAILY 06/01/19 06/01/19 Venlafaxine HCl ER [Effexor Xr] 150 mg PO DAILY 06/01/19 06/01/19 valACYclovir HCL [Valtrex] 1,000 mg PO TID 06/01/19 06/01/19 Allergies Allergy/AdvReac Type Severity Reaction Status Date / Time No Known Allergies Allergy Verified 05/28/22 00:18 Review of Systems ROS Statement: Those systems with pertinent positive or pertinent negative responses have been documented in the HPI. ROS Other: All systems not noted in ROS Statement are negative. Past Medical History Past Medical History: CVA/TIA Additional Past Medical History / Comment(s): polycystic ovarian syndrome History of Any Multi-Drug Resistant Organisms: None Reported Past Surgical History: Unable to Obtain Additional Past Surgical History / Comment(s): 3- c-sections, wisdom teeth removed, thrombectomy Past Anesthesia/Blood Transfusion Reactions: No Reported Reaction Past Psychological History: Anxiety, Bipolar, Depression, Schizophrenia Smoking Status: Never smoker Past Alcohol Use History: None Reported Past Drug Use History: None Reported - Past Family History Father Family Medical History: No Reported History Additional Family Medical History / Comment(s): Father is alive with no major medical problems. Mother Family Medical History: No Reported History Additional Family Medical History / Comment(s): Mother is alive with no major medical problems. Brother(s) Additional Family Medical History / Comment(s): She has one sister with no healthe problems and one brother that at age 16 years from MVA. General Exam Limitations: no limitations Course Vital Signs 05/28/22 05/28/22 05/28/22 00:09 00:11 00:30 Temperature 97.8 F Pulse Rate 93 93 89 Respiratory 34 H 18 17 Rate Blood Pressure 112/72 112/72 O2 Sat by Pulse 97 Oximetry 05/28/22 05/28/22 05/28/22 01:00 01:30 02:00 Temperature Pulse Rate 90 92 90 Respiratory 15 16 16 Rate Blood Pressure 112/72 112/51 112/51 O2 Sat by Pulse Oximetry 05/28/22 05/28/22 02:30 03:00 Temperature Pulse Rate 89 87 Respiratory 16 15 Rate Blood Pressure 110/68 110/68 O2 Sat by Pulse Oximetry EKG Findings - EKG Comments: EKG Findings:: EKG shows sinus rhythm 95 Pr 180 QRS 102 QTC 438 Medical Decision Making - Lab Data Result diagrams: 05/28/22 02:05 05/28/22 02:05 Lab Results 05/28/22 05/28/22 Range/Units 02:05 02:05 WBC 9.9 (3.8-10.6) k/uL RBC 4.05 (3.80-5.40) m/uL Hgb 12.5 (11.4-16.0) gm/dL Hct 36.7 (34.0-46.0) % MCV 90.7 (80.0-100.0) fL MCH 30.8 (25.0-35.0) pg MCHC 33.9 (31.0-37.0) g/dL RDW 13.8 (11.5-15.5) % Plt Count 258 (150-450) k/uL MPV 7.5 Neutrophils % 68 % Lymphocytes % 20 % Monocytes % 6 % Eosinophils % 3 % Basophils % 1 % Neutrophils # 6.8 (1.3-7.7) k/uL Lymphocytes # 2.0 (1.0-4.8) k/uL Monocytes # 0.6 (0-1.0) k/uL Eosinophils # 0.3 (0-0.7) k/uL Basophils # 0.1 (0-0.2) k/uL Sodium 136 L (137-145) mmol/L Potassium 2.7 L* (3.5-5.1) mmol/L Chloride 101 (98-107) mmol/L Carbon Dioxide 30 (22-30) mmol/L Anion Gap 5 mmol/L BUN 18 H (7-17) mg/dL Creatinine 0.77 (0.52-1.04) mg/dL Est GFR (CKD-EPI)AfAm >90 (>60 ml/min/1.73 sqM) Est GFR (CKD-EPI)NonAf >90 (>60 ml/min/1.73 sqM) Glucose 111 H (74-99) mg/dL Calcium 9.7 (8.4-10.2) mg/dL Total Bilirubin 0.4 (0.2-1.3) mg/dL AST 27 (14-36) U/L ALT 17 (4-34) U/L Alkaline Phosphatase 89 (38-126) U/L Total Protein 6.5 (6.3-8.2) g/dL Albumin 3.8 (3.5-5.0) g/dL Amylase 51 (30-110) U/L Lipase 44 (23-300) U/L Disposition Clinical Impression: Anxiety, Nausea & vomiting, Hypokalemia Disposition: ADMITTED IP TO THIS HOSP Condition: Good Is patient prescribed a controlled substance at d/c from ED?: No Referrals: Nathanael Flaherty DO [Primary Care Provider] - 1-2 days
[2022-05-28] MEDS ORDERED: SODIUM CHLORIDE 0.9% 1,000 ML IV STA ×2 (01:16)
[2022-05-28] MEDS ORDERED: SODIUM CHLORIDE 0.9% 500 ML 500 ML IV STA (01:16)
[2022-05-28] MEDS ORDERED: ONDANSETRON 4 MG/2 ML VIAL IVP STA (01:16)
[2022-05-28 02:20] LABS: Basophils # (A) 0.1 k/uL (0-0.2); Basophils % (A) 1 %; Eosinophils # (A) 0.3 k/uL (0-0.7); Eosinophils % (A) 3 %; HCT 36.7 % (34.0-46.0); HGB 12.5 gm/dL (11.4-16.0); Lymphocytes % (A) 20 %; MCH 30.8 pg (25.0-35.0); MCHC 33.9 g/dL (31.0-37.0); MCV 90.7 fL (80.0-100.0); Mean Platelet Volume 7.5; Monocytes # (A) 0.6 k/uL (0-1.0); Monocytes % (A) 6 %; Neutrophils # (A) 6.8 k/uL (1.3-7.7); Neutrophils % (A) 68 %; Platelet Count 258 k/uL (150-450); RBC 4.05 m/uL (3.80-5.40); RDW 13.8 % (11.5-15.5); WBC 9.9 k/uL (3.8-10.6)
[2022-05-28 02:34] LABS: ALT 17 U/L (4-34); AST 27 U/L (14-36); African American GFR (CKD) >90 (>60 ml/min/1.73 sqM); Albumin 3.8 g/dL (3.5-5.0); Alkaline Phosphatase 89 U/L (38-126); Amylase 51 U/L (30-110); Anion Gap 5 mmol/L; Blood Urea Nitrogen 18 mg/dL (7-17); Calcium 9.7 mg/dL (8.4-10.2); Carbon Dioxide 30 mmol/L (22-30); Chloride 101 mmol/L (98-107); Glucose 111 mg/dL (74-99); Lipase 44 U/L (23-300); Non-African American GFR(CKD) >90 (>60 ml/min/1.73 sqM); Sodium 136 mmol/L (137-145); Total Bilirubin 0.4 mg/dL (0.2-1.3); Total Protein 6.5 g/dL (6.3-8.2)
[2022-05-28 03:24] LABS: Potassium 2.7 mmol/L (3.5-5.1)
[2022-05-28] MEDS ORDERED: METOCLOPRAMIDE 5 MG/ML 2 ML VIAL IVP STA (03:55)
[2022-05-28] MEDS ORDERED: ONDANSETRON 4 MG/2 ML VIAL IVP PRN (04:10)
[2022-05-28] MEDS ORDERED: NALOXONE 0.4 MG/ML 1 ML VIAL IV PRN (04:10)
[2022-05-28] MEDS ORDERED: SODIUM CHLORIDE 0.9% 1,000 ML IV SCH (04:15)
[2022-05-28] MEDS ORDERED: POTASSIUM BICARBONATE/CIT AC 20 MEQ TABLET.EFF PO ONE (04:30)
[2022-05-28] MEDS ORDERED: POTASSIUM CHLORIDE 20 MEQ in WATER FOR INJECTION 1 100ML.BAG IVPB ONE (04:30)
[2022-05-28] MEDS ORDERED: POTASSIUM BICARBONATE/CIT AC 20 MEQ TABLET.EFF PO SCH (09:00)
[2022-05-28] MEDS ORDERED: PANTOPRAZOLE 40 MG/10 ML VIAL IV SCH (09:00)
[2022-05-28] MEDS ORDERED: Potassium Replacement Protocol 1 EACH MISC MISCELLANE PRN (11:40)
[2022-05-28] MEDS ORDERED: POTASSIUM CHLORIDE 20 MEQ in WATER FOR INJECTION 1 100ML.BAG IVPB SCH (11:45)
--- NOTE | 2022-05-28 11:55 | P.DS ---
Providers Date of admission: 05/28/22 04:10 Attending physician: Stephanie Murry Primary care physician: Nathanael Flaherty [facility] Course: Please refer to my history of present illness for further details Patient Condition at Discharge: Good Plan - Discharge Summary Discharge Rx Participant: No New Discharge Prescriptions: New Pantoprazole Sodium [Protonix] 20 mg PO BID #30 tab Potassium Chloride ER [K-Dur 20] 20 meq PO DAILY #30 tab Continue [place] Carbonate 900 mg PO HS Atorvastatin [Lipitor] 40 mg PO HS Prazosin [Minipress] 1 mg PO HS Glycopyrrolate 1 mg PO DAILY Melatonin 1 mg PO HS ARIPiprazole IM SYRINGE [Abilify Maintena Syringe] 400 mg IM Q28D Aspirin 325 mg PO DAILY Vitamin B Complex 1 cap PO DAILY Changed Chlorthalidone 25 mg PO DAILY #0 Discharge Medication List Atorvastatin [Lipitor] 40 mg PO HS 06/01/19 [History] [place] Carbonate 900 mg PO HS 06/01/19 [History] ARIPiprazole IM SYRINGE [Abilify Maintena Syringe] 400 mg IM Q28D 05/28/22 [History] Aspirin 325 mg PO DAILY 05/28/22 [History] Chlorthalidone 25 mg PO DAILY #0 05/28/22 [Rx] Glycopyrrolate 1 mg PO DAILY 05/28/22 [History] Melatonin 1 mg PO HS 05/28/22 [History] Pantoprazole Sodium [Protonix] 20 mg PO BID #30 tab 05/28/22 [Rx] Potassium Chloride ER [K-Dur 20] 20 meq PO DAILY #30 tab 05/28/22 [Rx] Prazosin [Minipress] 1 mg PO HS 05/28/22 [History] Vitamin B Complex 1 cap PO DAILY 05/28/22 [History] Follow up Appointment(s)/Referral(s): Nathanael Flaherty DO [Primary Care Provider] - 3 Days Ambulatory/Diagnostic Orders: Basic Metabolic Panel [LAB.AMB] Time Frame: 3 Days, Location: None Selected Discharge Disposition: HOME SELF-CARE
--- NOTE | 2022-05-28 11:55 | P.HPIM ---
History of Present Illness Patient presented 37-year-old the female came in with complaints of epigastric abdominal pain burning sensation along with nausea vomiting. Patient denied any right upper quadrant abdominal pain patient pain resolved at this time patient was started on Protonix able to tolerate breakfast patient is also found to be severely hyponatremic with potassium of 2.7 patient does have history of hypertension and had a stroke in the past with a chronic tremor after the stroke. She appears to be volume depleted with contraction alkalosis with elevated bicarbonate of 30 patient is on 2 diuretics at home which includes Aldactone and chlorthalidone. Patient denied any fever chills. Patient was complaining of some mild the pain in the right foot on the plantar surface but able to ambulate without any problems. REVIEW OF SYSTEMS: CONSTITUTIONAL: No fever, no malaise, no fatigue. HEENT: No recent visual problems or hearing problems. Denied any sore throat. CARDIOVASCULAR: No chest pain, orthopnea, PND, no palpitations, no syncope. PULMONARY: No shortness of breath, no cough, no hemoptysis. GASTROINTESTINAL: As mentioned in HPI NEUROLOGICAL: No headaches, no weakness, no numbness. HEMATOLOGICAL: Denies any bleeding or petechiae. GENITOURINARY: Denies any burning micturition, frequency, or urgency. MUSCULOSKELETAL/RHEUMATOLOGICAL: Denies any joint pain, swelling, or any muscle pain. ENDOCRINE: Denies any polyuria or polydipsia. The rest of the 14-point review of systems is negative. PHYSICAL EXAMINATION: GENERAL: The patient is alert and oriented x3, not in any acute distress. Well developed, well nourished. HEENT: Pupils are round and equally reacting to light. EOMI. No scleral icterus. No conjunctival pallor. Normocephalic, atraumatic. No pharyngeal erythema. No thyromegaly. CARDIOVASCULAR: S1 and S2 present. No murmurs, rubs, or gallops. PULMONARY: Chest is clear to auscultation, no wheezing or crackles. ABDOMEN: Soft, nontender, nondistended, normoactive bowel sounds. No palpable organomegaly. MUSCULOSKELETAL: No joint swelling or deformity. EXTREMITIES: No cyanosis, clubbing, or pedal edema. NEUROLOGICAL: Gross neurological examination did not reveal any focal deficits. SKIN: No rashes. Assessment and plan -Gastritis or gastroenteritis patient's symptoms improved will advance diet if patient can tolerate patient will be discharged on Protonix for 14 days. -Hypokalemia secondary to nausea vomiting along with chlorthalidone production will replace and patient will be discharged on potassium supplementation will decrease the dose of:25 mg patient blood pressure here is around 116/ 72 -History of CVA with a chronic tremor mostly in the left side. -Hypertension next and-hyperlipidemia -Bipolar disorder for which patient is on lithium and aripiprazole, further management as per [facility]. DVT prophylaxis: Past Medical History Past Medical History: CVA/TIA, Hyperlipidemia, Hypertension Additional Past Medical History / Comment(s): CVA with L arm weakness/tremors/R foot slight drop, polycystic ovarian syndrome History of Any Multi-Drug Resistant Organisms: None Reported Past Surgical History: Unable to Obtain Additional Past Surgical History / Comment(s): 3- c-sections, wisdom teeth removed, thrombectomy brain Past Anesthesia/Blood Transfusion Reactions: No Reported Reaction Smoking Status: Never smoker - Past Family History Father Family Medical History: No Reported History Additional Family Medical History / Comment(s): Father is alive with no major medical problems. Mother Family Medical History: No Reported History Additional Family Medical History / Comment(s): Mother is alive with no major medical problems. Brother(s) Additional Family Medical History / Comment(s): She has one sister with no healthe problems and one brother that at age 16 years from MVA. Medications and Allergies Home Medications Medication Instructions Recorded Confirmed Type Atorvastatin [Lipitor] 40 mg PO HS 06/01/19 05/28/22 History [place] Carbonate 900 mg PO HS 06/01/19 05/28/22 History ARIPiprazole IM SYRINGE [Abilify 400 mg IM Q28D 05/28/22 05/28/22 History Maintena Syringe] Aspirin 325 mg PO DAILY 05/28/22 05/28/22 History Chlorthalidone 25 mg PO DAILY #0 05/28/22 05/28/22 Rx Glycopyrrolate 1 mg PO DAILY 05/28/22 05/28/22 History Melatonin 1 mg PO HS 05/28/22 05/28/22 History Pantoprazole Sodium [Protonix] 20 mg PO BID #30 tab 05/28/22 Rx Potassium Chloride ER [K-Dur 20] 20 meq PO DAILY #30 tab 05/28/22 Rx Prazosin [Minipress] 1 mg PO HS 05/28/22 05/28/22 History Vitamin B Complex 1 cap PO DAILY 05/28/22 05/28/22 History Allergies Allergy/AdvReac Type Severity Reaction Status Date / Time No Known Allergies Allergy Verified 05/28/22 06:33 Physical Exam Vitals: Vital Signs Temp Pulse Resp BP Pulse Ox 05/28/22 09:52 86 17 117/65 98 05/28/22 06:00 81 15 116/72 05/28/22 05:00 85 14 114/70 05/28/22 04:00 76 15 109/60 05/28/22 03:00 87 15 110/68 05/28/22 02:30 89 16 110/68 05/28/22 02:00 90 16 112/51 05/28/22 01:30 92 16 112/51 05/28/22 01:00 90 15 112/72 05/28/22 00:30 89 17 112/72 05/28/22 00:11 97.8 F 93 18 112/72 97 05/28/22 00:09 93 34 H Intake and Output 05/27/22 05/28/22 05/28/22 22:59 06:59 14:59 Other: Weight 86.183 kg 86.183 kg Results CBC & Chem 7: 05/28/22 02:05 05/28/22 02:05 Labs: Abnormal Lab Results - Last 24 Hours (Table) 05/28/22 Range/Units 02:05 Sodium 136 L (137-145) mmol/L Potassium 2.7 L* (3.5-5.1) mmol/L BUN 18 H (7-17) mg/dL Glucose 111 H (74-99) mg/dL Thrombosis Risk Factor Assmnt - Choose All That Apply Any of the Below Risk Factors Present?: Yes Each Factor Represents 1 point: Obesity (BMI >25) Other Risk Factors: No Other congenital or acquired thrombophilia - If yes, enter type in comment: No Thrombosis Risk Factor Assessment Total Risk Factor Score: 1 Thrombosis Risk Factor Assessment Level: Low Risk
[2022-05-28] MEDS ORDERED: POTASSIUM BICARBONATE/CIT AC 20 MEQ TABLET.EFF NG-TUBE SCH (12:00)
[2022-05-28 12:49] VITALS: BP 110/71; PULSE 87; RESP 16
== END 2022-05-28 12:49 | disposition home or self-care (01) ==
LOC: EC 23:52 → 6NMEDSUR 05-28 04:10
PROVIDERS: ADMIT Hospitalist; ATTEND Hospitalist
DX: R10.13 Epigastric pain (principal); R11.2 Nausea with vomiting, unspecified; R00.2 Palpitations; E87.6 Hypokalemia; E87.1 Hypo-osmolality and hyponatremia; E78.5 Hyperlipidemia, unspecified; I10 Essential (primary) hypertension; M79.671 Pain in right foot; I69.354 Hemiplegia and hemiparesis following cerebral infarction affecting left non-dominant side; I69.398 Other sequelae of cerebral infarction; F31.9 Bipolar disorder, unspecified; F41.9 Anxiety disorder, unspecified; F20.9 Schizophrenia, unspecified; E28.2 Polycystic ovarian syndrome; E66.9 Obesity, unspecified; Z68.31 Body mass index [BMI] 31.0-31.9, adult; Z79.899 Other long term (current) drug therapy; Z79.82 Long term (current) use of aspirin
CPT/HCPCS: 96365; 96366; 96375; 99285; 36415; 93005; 80053; 82150; 83690; 85025; G0378; J2765; J3480; J2405; C9113

== ENCOUNTER → 2022-10-29 | Outpatient (CLI) | payer MEDICARE, OTHER | END | disposition home or self-care (01) | LOC: LABWHC1 08:08 | PROVIDERS: ATTEND Family Medicine | DX: U07.1 COVID-19 (principal) | CPT/HCPCS: 87502; U0003; C9803 ==

== ENCOUNTER 2023-07-13 22:40 | Emergency (ER) | payer MEDICARE, OTHER ==
[2023-07-13 22:49] VITALS: RESP 18; TEMP 98.1
[2023-07-13 23:15] LABS: Basophils % (A) 0 %; Eosinophils # (A) 0.2 k/uL (0-0.7); Eosinophils % (A) 2 %; HCT 42.3 % (34.0-46.0); HGB 14.8 gm/dL (11.4-16.0); Lymphocytes # (A) 0.9 k/uL (1.0-4.8); Lymphocytes % (A) 6 %; MCH 31.2 pg (25.0-35.0); MCHC 34.9 g/dL (31.0-37.0); MCV 89.4 fL (80.0-100.0); Mean Platelet Volume 7.7; Monocytes # (A) 0.3 k/uL (0-1.0); Monocytes % (A) 2 %; Neutrophils # (A) 13.1 k/uL (1.3-7.7); Neutrophils % (A) 90 %; Platelet Count 282 k/uL (150-450); RBC 4.73 m/uL (3.80-5.40); RDW 13.7 % (11.5-15.5); WBC 14.5 k/uL (3.8-10.6)
[2023-07-13 23:27] LABS: INR 0.9 (<1.2); Prothrombin Time 10.1 sec (9.0-12.0)
[2023-07-13 23:48] LABS: ALT 29 U/L (4-34); AST 33 U/L (14-36); African American GFR (CKD) >90 (>60 ml/min/1.73 sqM); Albumin 4.3 g/dL (3.5-5.0); Alkaline Phosphatase 106 U/L (38-126); Anion Gap 13 mmol/L; Blood Urea Nitrogen 15 mg/dL (7-17); Calcium 10.7 mg/dL (8.4-10.2); Carbon Dioxide 21 mmol/L (22-30); Chloride 102 mmol/L (98-107); Glucose 195 mg/dL (74-99); Non-African American GFR(CKD) >90 (>60 ml/min/1.73 sqM); Sodium 136 mmol/L (137-145); Total Bilirubin 0.6 mg/dL (0.2-1.3); Total Protein 7.6 g/dL (6.3-8.2)
--- NOTE | 2023-07-14 01:10 | ED ---
General Adult HPI - General Chief complaint: Chest Pain Stated complaint: Chest Pain Time Seen by Provider: 07/14/23 00:33 Source: patient, RN notes reviewed Mode of arrival: ambulatory Limitations: no limitations - History of Present Illness Initial comments: 38-year-old female with a past medical history significant for hemorrhagic stroke presents the emergency department with a chief complaint of left extremity tremor. Patient reports left upper arm and left leg tremor that started earlier this afternoon. She reports that she had similar symptoms when she had her hemorrhagic stroke years ago. She is also complaining of chest tightness and feeling like her heart is racing. She reports that she attempted to perform breathing exercises however she is unsuccessful. She contacted. She denies any injury or trauma. She does report that she did receive steroid injections in her feet for her plantar fasciitis earlier today. - Related Data Home Medications Medication Instructions Recorded Confirmed Atorvastatin [Lipitor] 40 mg PO HS 06/01/19 05/28/22 [place] Carbonate 900 mg PO HS 06/01/19 05/28/22 ARIPiprazole IM SYRINGE [Abilify 400 mg IM Q28D 05/28/22 05/28/22 Maintena Syringe] Aspirin 325 mg PO DAILY 05/28/22 05/28/22 Glycopyrrolate 1 mg PO DAILY 05/28/22 05/28/22 Melatonin 1 mg PO HS 05/28/22 05/28/22 Prazosin [Minipress] 1 mg PO HS 05/28/22 05/28/22 Vitamin B Complex 1 cap PO DAILY 05/28/22 05/28/22 Previous Rx's Medication Instructions Recorded Chlorthalidone 25 mg PO DAILY #0 05/28/22 Pantoprazole Sodium [Protonix] 20 mg PO BID #30 tab 05/28/22 Potassium Chloride ER [K-Dur 20] 20 meq PO DAILY #30 tab 05/28/22 Allergies Allergy/AdvReac Type Severity Reaction Status Date / Time No Known Allergies Allergy Verified 07/13/23 22:46 Review of Systems ROS Statement: Those systems with pertinent positive or pertinent negative responses have been documented in the HPI. ROS Other: All systems not noted in ROS Statement are negative. Past Medical History Past Medical History: CVA/TIA Additional Past Medical History / Comment(s): polycystic ovarian syndrome History of Any Multi-Drug Resistant Organisms: None Reported Past Surgical History: Unable to Obtain Additional Past Surgical History / Comment(s): 3- c-sections, wisdom teeth removed, thrombectomy Past Anesthesia/Blood Transfusion Reactions: No Reported Reaction Past Psychological History: Anxiety, Bipolar, Depression, Schizophrenia Smoking Status: Never smoker Past Alcohol Use History: None Reported Past Drug Use History: None Reported - Past Family History Father Family Medical History: No Reported History Additional Family Medical History / Comment(s): Father is alive with no major medical problems. Mother Family Medical History: No Reported History Additional Family Medical History / Comment(s): Mother is alive with no major medical problems. Brother(s) Additional Family Medical History / Comment(s): She has one sister with no healthe problems and one brother that at age 16 years from MVA. General Exam - General Exam Comments Initial Comments: General: Alert, in no acute distress Head: atraumatic normocephalic. Eyes PERRL, EOMI intact, mucous membranes moist Respiratory: Lungs clear to auscultation bilaterally Cardiovascular: Regular rate and rhythm Abdominal: Soft without guarding or rebound Extremities: Normal inspection with full range of motion and normal capillary refill, left arm and leg tremor at rest Neuroogic: alert and oriented 3, CN II-XII intact, able to ambulate with steady gait Skin: warm dry and intact with normal color Limitations: no limitations Course Vital Signs 07/13/23 07/14/23 22:46 01:00 Temperature 98.1 F Pulse Rate 116 H 100 Respiratory 18 18 Rate Blood Pressure 133/71 122/88 O2 Sat by Pulse 98 98 Oximetry - Reevaluation(s) Reevaluation #2: 07/14/23 03:16 Patient reevaluated. Patient reports resolution of symptoms. Patient is agree able with plan for discharge home EKG Findings - EKG Comments: EKG Findings:: I interpreted the following: EKG performed at 22:57 rate 114 beats minute and sinus tachycardia. [place] interval 167, QRS duration 93, QT/QTc 355/423 Medical Decision Making - Medical Decision Making Was pt. sent in by a medical professional or institution (, PA, TIPPLE OILER, urgent care, hospital, or intermediate...) When possible be specific @ -[No] Did you speak to anyone other than the patient for history (EMS, parent, family, police, friend...)? What history was obtained from this source @ -[No] Did you review nursing and triage notes (agree or disagree)? Why? @ -[I reviewed and agree with nursing and triage notes] Were old charts reviewed (outside hosp., previous admission, EMS record, old EKG, old radiological studies, urgent care reports/EKG's, intermediate records)? Report findings @ -[No old charts were reviewed] Differential Diagnosis (chest pain, altered mental status, abdominal pain women, abdominal pain men, vaginal bleeding, weakness, fever, dyspnea, syncope, headache, dizziness, GI bleed, back pain, seizure, CVA, palpatations, mental health, musculoskeletal)? @ -[not applicable] EKG interpreted by me (3pts min.). @ -[As above] X-rays interpreted by me (1pt min.). @ -[None done] CT interpreted by me (1pt min.). @ -CT head and neck negative for any intracranial process or evidence of stroke U/S interpreted by me (1pt. min.). @ -[None done] What testing was considered but not performed or refused? (CT, X-rays, U/S, labs)? Why? @ -[None] What meds were considered but not given or refused? Why? @ -[None] Did you discuss the management of the patient with other professionals (professionals i.e. , PA, TIPPLE O[employer]ER, lab, RT, psych nurse, social services, test grader, teacher, security public safety officer, correctional counselor/case manager)? Give summary @ -[No] Was smoking cessation discussed for >3mins.? @ -[No] Was critical care preformed (if so, how long)? @ -[No] Were there social determinants of health that impacted care today? How? (Homelessness, low income, unemployed, alcoholism, drug addiction, transportation, low edu. Level, literacy, decrease access to med. care, halfway, rehab)? @ -[No] Was there de-escalation of care discussed even if they declined (Discuss DNR or withdrawal of care, Hospice)? DNR status @ -[No] What co-morbidities impacted this encounter? (DM, HTN, Smoking, COPD, CAD, Cancer, CVA, ARF, Chemo, Hep., AIDS, mental health diagnosis, sleep apnea, morbid obesity)? @ -[None] Was patient admitted / discharged? Hospital course, mention meds given and route, prescriptions, significant lab abnormalities, going to OR and other pertinent info. @ -Discharged. This is a pleasant 38-year-old female who presents the emergency department with a chief complaint of tremor. Patient had a thorough history and physical exam performed while in the ED. Initial history and physical exam patient with intentional tremor at rest. No focal neuro deficits noted on exam. Patient able to answer questions appropriately. Heart rate regular rate and rhythm, lung auscultation bilaterally abdomen soft and nontender. Patient had an extensive lab work and imaging studies performed which were all negative. Potassium 3.0. I discussed results in detail with the patient verbalized understanding and all questions were addressed. Her symptoms resolved spontaneously during the course of her workup. Patient was instructed to start taking her potassium. Monitor her symptoms closely and return if worsening headache, vision changes or vision loss develop. Patient was discharged in stable condition. Case discussed with Dr. Suh,, [facility] who agrees with POC Undiagnosed new problem with uncertain prognosis? @ -[No] Drug Therapy requiring intensive monitoring for toxicity (Heparin, Nitro, Insulin, Cardizem)? @ -[No] Were any procedures done? @ -[No] Diagnosis/symptom? @ -Left Arm Tremor - Chest pain -Hypokalemia -Hx of CVA Acute, or Chronic, or Acute on Chronic? @ -Acute Uncomplicated (without systemic symptoms) or Complicated (systemic symptoms)? @ -Uncomplicated Side effects of treatment? @ -[No] Exacerbation, Progression, or Severe Exacerbation? @ -[No] Poses a threat to life or bodily function? How? (Chest pain, USA, VT, pneumonia, PE, COPD, DKA, ARF, appy, cholecystitis, CVA, Diverticulitis, Homicidal, Suicidal, threat to staff... and all critical care pts) @ -Low likelihood - Lab Data Result diagrams: 07/13/23 23:05 07/13/23 23:05 Lab Results 07/13/23 07/13/23 07/13/23 Range/Units 23:05 23:05 23:05 WBC 14.5 H (3.8-10.6) k/uL RBC 4.73 (3.80-5.40) m/uL Hgb 14.8 (11.4-16.0) gm/dL Hct 42.3 (34.0-46.0) % MCV 89.4 (80.0-100.0) fL MCH 31.2 (25.0-35.0) pg MCHC 34.9 (31.0-37.0) g/dL RDW 13.7 (11.5-15.5) % Plt Count 282 (150-450) k/uL MPV 7.7 Neutrophils % 90 % Lymphocytes % 6 % Monocytes % 2 % Eosinophils % 2 % Basophils % 0 % Neutrophils # 13.1 H (1.3-7.7) k/uL Lymphocytes # 0.9 L (1.0-4.8) k/uL Monocytes # 0.3 (0-1.0) k/uL Eosinophils # 0.2 (0-0.7) k/uL Basophils # 0.0 (0-0.2) k/uL PT 10.1 (9.0-12.0) sec INR 0.9 (<1.2) APTT 25.0 (22.0-30.0) sec Sodium 136 L (137-145) mmol/L Potassium 3.0 L (3.5-5.1) mmol/L Chloride 102 (98-107) mmol/L Carbon Dioxide 21 L (22-30) mmol/L Anion Gap 13 mmol/L BUN 15 (7-17) mg/dL Creatinine 0.61 (0.52-1.04) mg/dL Est GFR (CKD-EPI)AfAm >90 (>60 ml/min/1.73 sqM) Est GFR (CKD-EPI)NonAf >90 (>60 ml/min/1.73 sqM) Glucose 195 H (74-99) mg/dL Calcium 10.7 H (8.4-10.2) mg/dL Total Bilirubin 0.6 (0.2-1.3) mg/dL AST 33 (14-36) U/L ALT 29 (4-34) U/L Alkaline Phosphatase 106 (38-126) U/L Troponin I (0.000-0.034) ng/mL Total Protein 7.6 (6.3-8.2) g/dL Albumin 4.3 (3.5-5.0) g/dL 07/13/23 07/14/23 Range/Units 23:05 01:18 WBC (3.8-10.6) k/uL RBC (3.80-5.40) m/uL Hgb (11.4-16.0) gm/dL Hct (34.0-46.0) % MCV (80.0-100.0) fL MCH (25.0-35.0) pg MCHC (31.0-37.0) g/dL RDW (11.5-15.5) % Plt Count (150-450) k/uL MPV Neutrophils % % Lymphocytes % % Monocytes % % Eosinophils % % Basophils % % Neutrophils # (1.3-7.7) k/uL Lymphocytes # (1.0-4.8) k/uL Monocytes # (0-1.0) k/uL Eosinophils # (0-0.7) k/uL Basophils # (0-0.2) k/uL PT (9.0-12.0) sec INR (<1.2) APTT (22.0-30.0) sec Sodium (137-145) mmol/L Potassium (3.5-5.1) mmol/L Chloride (98-107) mmol/L Carbon Dioxide (22-30) mmol/L Anion Gap mmol/L BUN (7-17) mg/dL Creatinine (0.52-1.04) mg/dL Est GFR (CKD-EPI)AfAm (>60 ml/min/1.73 sqM) Est GFR (CKD-EPI)NonAf (>60 ml/min/1.73 sqM) Glucose (74-99) mg/dL Calcium (8.4-10.2) mg/dL Total Bilirubin (0.2-1.3) mg/dL AST (14-36) U/L ALT (4-34) U/L Alkaline Phosphatase (38-126) U/L Troponin I <0.012 <0.012 (0.000-0.034) ng/mL Total Protein (6.3-8.2) g/dL Albumin (3.5-5.0) g/dL Disposition Clinical Impression: Anxiety, Hypokalemia, Chest pain, Tremor Disposition: HOME SELF-CARE Condition: Stable Instructions (If sedation given, give patient instructions): Chest Pain (ED), Tremors (ED) Additional Instructions: Please monitoring her symptoms closely Please return to the emergency department if symptoms worsen or persist Is patient prescribed a controlled substance at d/c from ED?: No Referrals: Nathanael Flaherty DO [Primary Care Provider] - 1-2 days Time of Disposition: 03:23
--- NOTE | 2023-07-14 02:47 | CT ---
EXAM: CT Head Without Intravenous Contrast CLINICAL HISTORY: ITS.REASON CT Reason: left sided tremor TECHNIQUE: Axial computed tomography images of the head/brain without intravenous contrast. CTDI is 48.8 mGy and DLP is 1119 mGy-cm. This CT exam was performed using one or more of the following dose reduction techniques: automated exposure control, adjustment of the mA and/or kV according to patient size, and/or use of iterative reconstruction technique. COMPARISON: 2019 FINDINGS: Brain: No hemorrhage or mass effect. Prior left MCA territory infarct Ventricles: No hydrocephalus. Bones/joints: Postop change. Soft tissues: Unremarkable. Sinuses: No air fluid level. Mastoid air cells: Clear. IMPRESSION: No acute hemorrhage, hydrocephalus, or mass effect.
--- NOTE | 2023-07-14 03:01 | CT ---
EXAM: CT Angiography Head With Intravenous Contrast CLINICAL HISTORY: ITS.REASON CT Reason: left arm tremor TECHNIQUE: Axial computed tomographic angiography images of the head with intravenous contrast. CTDI is 17.6 mGy and DLP is 312.3 mGy-cm. This CT exam was performed using one or more of the following dose reduction techniques: automated exposure control, adjustment of the mA and/or kV according to patient size, and/or use of iterative reconstruction technique. MIP reconstructed images were created and reviewed. COMPARISON: No relevant prior studies available. FINDINGS: Right internal carotid artery: Intracranial segment is patent with no significant stenosis. No aneurysm. Right anterior cerebral artery: No occlusion or significant stenosis. No aneurysm. Right middle cerebral artery: No occlusion or significant stenosis. No aneurysm. Right posterior cerebral artery: No occlusion or significant stenosis. No aneurysm. Right vertebral artery: Unremarkable. Left internal carotid artery: Intracranial segment is patent with no significant stenosis. No aneurysm. Left anterior cerebral artery: No occlusion or significant stenosis. No aneurysm. Left middle cerebral artery: No occlusion or significant stenosis. No aneurysm. Left posterior cerebral artery: No occlusion or significant stenosis. No aneurysm. Left vertebral artery: Unremarkable. Basilar artery: No occlusion or significant stenosis. No aneurysm. IMPRESSION: No significant stenosis. EXAM: CT Angiography Neck With Intravenous Contrast CLINICAL HISTORY: ITS.REASON CT Reason: left arm tremor TECHNIQUE: Axial computed tomographic angiography images of the neck with intravenous contrast. CTDI is 17.6 mGy and DLP is 312.3 mGy-cm. This CT exam was performed using one or more of the following dose reduction techniques: automated exposure control, adjustment of the mA and/or kV according to patient size, and/or use of iterative reconstruction technique. MIP reconstructed images were created and reviewed. COMPARISON: No relevant prior studies available. FINDINGS: VASCULATURE: Right common carotid artery: No significant stenosis. No dissection. Right internal carotid artery: Extracranial has no significant stenosis. No dissection. Right vertebral artery: No significant stenosis. No dissection. Left common carotid artery: No significant stenosis. No dissection. Left internal carotid artery: Extracranial has no significant stenosis. No dissection. Left vertebral artery: No significant stenosis. No dissection. NECK: Bones/joints: No acute fracture. No dislocation. CAROTID STENOSIS REFERENCE USING NASCET CRITERIA: % ICA stenosis = (1 - narrowest ICA diameter/diameter of distal cervical ICA) x 100. Mild - <50% stenosis. Moderate - 50-69% stenosis. Severe - 70-94% stenosis. Near occlusion - 95-99% stenosis. Occluded - 100% stenosis. IMPRESSION: No significant stenosis.
[2023-07-14 03:38] VITALS: BP 107/72; PULSE 89
== END 2023-07-14 03:51 | disposition home or self-care (01) ==
LOC: EC 22:40
DX: E87.6 Hypokalemia (principal); R07.89 Other chest pain; F41.9 Anxiety disorder, unspecified; R00.0 Tachycardia, unspecified; R25.1 Tremor, unspecified; Z86.73 Personal history of transient ischemic attack (TIA), and cerebral infarction without residual deficits; F31.9 Bipolar disorder, unspecified; Z79.899 Other long term (current) drug therapy; Z79.82 Long term (current) use of aspirin
CPT/HCPCS: 99285 ×2; 36415 ×2; 93005; 80053; 84484 ×2; 85025; 85610; 85730; 70496; 70450; 70498; Q9967

== ENCOUNTER 2024-01-26 13:11 | Emergency (ER) | payer MEDICARE, OTHER ==
--- NOTE | 2024-01-26 13:22 | ED ---
General Adult HPI - General Chief complaint: Dizziness Stated complaint: Dizziness Time Seen by Provider: 01/26/24 13:11 Source: patient, RN notes reviewed, old records reviewed Mode of arrival: EMS Limitations: no limitations - History of Present Illness Initial comments: This is a 38-year-old female who has a past medical history significant for a stroke at 28 years of age. Patient had a craniotomy at that time but she is not sure exactly why or what they did. Patient comes in today because she has been experiencing dizziness for the last 3 days. Patient was at [facility] to get an Abilify shot but because she was complaining of dizziness they did not feel comfortable giving it to her patient also stated she was nauseous so they sent her into the emergency department. Patient denies a headache. Patient denies any numbness weakness. Patient denies lightheadedness. Patient states she is does not feel like she is going to faint. Patient states movement of the head does seem to make it worse but patient Nuys any chest pain difficult breathing shortness of breath. Patient has any recent fever chills or cough. Patient received Zofran on the way in for her nausea. - Related Data Home Medications Medication Instructions Recorded Confirmed Atorvastatin [Lipitor] 40 mg PO HS 06/01/19 05/28/22 [place] Carbonate 900 mg PO HS 06/01/19 05/28/22 ARIPiprazole IM SYRINGE [Abilify 400 mg IM Q28D 05/28/22 05/28/22 Maintena Syringe] Aspirin 325 mg PO DAILY 05/28/22 05/28/22 Glycopyrrolate 1 mg PO DAILY 05/28/22 05/28/22 Melatonin 1 mg PO HS 05/28/22 05/28/22 Prazosin [Minipress] 1 mg PO HS 05/28/22 05/28/22 Vitamin B Complex 1 cap PO DAILY 05/28/22 05/28/22 Previous Rx's Medication Instructions Recorded Chlorthalidone 25 mg PO DAILY #0 05/28/22 Pantoprazole Sodium [Protonix] 20 mg PO BID #30 tab 05/28/22 Potassium Chloride ER [K-Dur 20] 20 meq PO DAILY #30 tab 05/28/22 Meclizine [Antivert] 25 mg PO TID #20 tab 01/26/24 Allergies Allergy/AdvReac Type Severity Reaction Status Date / Time No Known Allergies Allergy Verified 01/26/24 13:16 Review of Systems ROS Statement: Those systems with pertinent positive or pertinent negative responses have been documented in the HPI. ROS Other: All systems not noted in ROS Statement are negative. Past Medical History Past Medical History: CVA/TIA Additional Past Medical History / Comment(s): polycystic ovarian syndrome History of Any Multi-Drug Resistant Organisms: None Reported Past Surgical History: Unable to Obtain Additional Past Surgical History / Comment(s): 3- c-sections, wisdom teeth removed, thrombectomy Past Anesthesia/Blood Transfusion Reactions: No Reported Reaction Past Psychological History: Anxiety, Bipolar, Depression, Schizophrenia Smoking Status: Former smoker Past Alcohol Use History: None Reported Past Drug Use History: None Reported - Past Family History Father Family Medical History: No Reported History Additional Family Medical History / Comment(s): Father is alive with no major medical problems. Mother Family Medical History: No Reported History Additional Family Medical History / Comment(s): Mother is alive with no major medical problems. Brother(s) Additional Family Medical History / Comment(s): She has one sister with no healthe problems and one brother that at age 16 years from MVA. General Exam - General Exam Comments Initial Comments: GENERAL: Patient is well-developed and well-nourished. Patient is nontoxic and well- hydrated and is in no acute distress. ENT: Neck is soft and supple. No significant lymphadenopathy is noted. Oropharynx is clear. Moist mucous membranes. Neck has full range of motion without eliciting any pain. EYES: The sclera were anicteric and conjunctiva were pink and moist. Extraocular movements were intact and pupils were equal round and reactive to light. Eyelids were unremarkable. PULMONARY: Unlabored respirations. Good breath sounds bilaterally. No audible rales rhonchi or wheezing was noted. CARDIOVASCULAR: There is a regular rate and rhythm without any murmurs gallops or rubs. ABDOMEN: Soft and nontender with normal bowel sounds. SKIN: Skin is clear with no lesions or rashes and otherwise unremarkable. NEUROLOGIC: Patient is alert and oriented x3. Cranial nerves II through XII are grossly intact. Motor and sensory are also intact. Normal speech, volume and content. Symmetrical smile. Cerebellar exam grossly intact. MUSCULOSKELETAL: Normal extremities with adequate strength and full range of motion. No lower extremity swelling or edema. No calf tenderness. LYMPHATICS: No significant lymphadenopathy is noted PSYCHIATRIC: Normal psychiatric evaluation. Limitations: no limitations Course Vital Signs 01/26/24 13:12 Temperature 97.5 F L Pulse Rate 68 Respiratory 18 Rate Blood Pressure 116/72 O2 Sat by Pulse 99 Oximetry Medical Decision Making - Medical Decision Making EKG is interpreted by myself. EKG shows a sinus rhythm at 69 bpm parables 194 QRS is 90 QT interval 416 QTc is 435. EKG shows no ST segment elevation Was pt. sent in by a medical professional or institution (, PA, CLOTH COVERER, urgent care, hospital, or penitentiary...) When possible be specific @ -No Did you speak to anyone other than the patient for history (EMS, parent, family, police, friend...)? What history was obtained from this source @ -No Did you review nursing and triage notes (agree or disagree)? Why? @ -I reviewed and agree with nursing and triage notes Were old charts reviewed (outside hosp., previous admission, EMS record, old EKG, old radiological studies, urgent care reports/EKG's, penitentiary records)? Report findings @ -No old charts were reviewed Differential Diagnosis (chest pain, altered mental status, abdominal pain women, abdominal pain men, vaginal bleeding, weakness, fever, dyspnea, syncope, headache, dizziness, GI bleed, back pain, seizure, CVA, palpatations, mental health, musculoskeletal)? @ -Differential Dizziness: Benign paroxysmal positional Vertigo, Menieres disease, otitis media, acoustic neuroma, vertebrobasilar insufficiency, cerebellar stroke, encephalitis, hypovol emic, arrhythmia, coronary artery syndrome, anemia, this is not meant to be an all-inclusive list EKG interpreted by me (3pts min.). @ -As above X-rays interpreted by me (1pt min.). @ -None done CT interpreted by me (1pt min.). @ -CT scan of the brain shows no acute abnormality. U/S interpreted by me (1pt. min.). @ -None done What testing was considered but not performed or refused? (CT, X-rays, U/S, labs)? Why? @ -None What meds were considered but not given or refused? Why? @ -None Did you discuss the management of the patient with other professionals (professionals i.e. , PA, CLOTH COVERER, lab, RT, psych nurse, high school social studies tutor, filenet admin, teacher, business services officer, caseworker protective services)? Give summary @ -No Was smoking cessation discussed for >3mins.? @ -No Was critical care preformed (if so, how long)? @ -No Were there social determinants of health that impacted care today? How? (Homelessness, low income, unemployed, alcoholism, drug addiction, transportation, low edu. Level, literacy, decrease access to med. care, fci, rehab)? @ -No Was there de-escalation of care discussed even if they declined (Discuss DNR or withdrawal of care, Hospice)? DNR status @ -No What co-morbidities impacted this encounter? (DM, HTN, Smoking, COPD, CAD, Cancer, CVA, ARF, Chemo, Hep., AIDS, mental health diagnosis, sleep apnea, morbid obesity)? @ -None Was patient admitted / discharged? Hospital course, mention meds given and route, prescriptions, significant lab abnormalities, going to OR and other pertinent info. @ -Patient was able to ambulate without problem. Patient felt comfortable going home. Undiagnosed new problem with uncertain prognosis? @ -No Drug Therapy requiring intensive monitoring for toxicity (Heparin, Nitro, Insulin, Cardizem)? @ -No Were any procedures done? @ -No Diagnosis/symptom? @ -Vertigo Acute, or Chronic, or Acute on Chronic? @ -Acute Uncomplicated (without systemic symptoms) or Complicated (systemic symptoms)? @ -Complicated Side effects of treatment? @ -No Exacerbation, Progression, or Severe Exacerbation? @ -No Poses a threat to life or bodily function? How? (Chest pain, [place], [place], pneumonia, PE, COPD, DKA, ARF, appy, cholecystitis, CVA, Diverticulitis, Homicidal, Suicidal, threat to staff... and all critical care pts) @ -No - Lab Data Result diagrams: 01/26/24 13:18 01/26/24 13:18 Lab Results 01/26/24 01/26/24 01/26/24 Range/Units 13:18 13:18 13:18 WBC 6.6 (3.8-10.6) k/uL RBC 4.95 (3.80-5.40) m/uL Hgb 15.6 (11.4-16.0) gm/dL Hct 46.4 H (34.0-46.0) % MCV 93.8 (80.0-100.0) fL MCH 31.5 (25.0-35.0) pg MCHC 33.6 (31.0-37.0) g/dL RDW 13.5 (11.5-15.5) % Plt Count 253 (150-450) k/uL MPV 7.5 Neutrophils % 65 % Lymphocytes % 26 % Monocytes % 4 % Eosinophils % 3 % Basophils % 1 % Neutrophils # 4.3 (1.3-7.7) k/uL Lymphocytes # 1.7 (1.0-4.8) k/uL Monocytes # 0.3 (0-1.0) k/uL Eosinophils # 0.2 (0-0.7) k/uL Basophils # 0.1 (0-0.2) k/uL PT 10.8 (10.0-12.5) sec INR 1.0 (<1.2) APTT 27.4 (22.0-30.0) sec Sodium 137 (137-145) mmol/L Potassium 3.6 (3.5-5.1) mmol/L Chloride 101 (98-107) mmol/L Carbon Dioxide 28 (22-30) mmol/L Anion Gap 8 mmol/L BUN 19 H (7-17) mg/dL Creatinine 0.74 (0.52-1.04) mg/dL Est GFR (CKD-EPI)AfAm >90 (>60 ml/min/1.73 sqM) Est GFR (CKD-EPI)NonAf >90 (>60 ml/min/1.73 sqM) Glucose 123 H (74-99) mg/dL Calcium 10.0 (8.4-10.2) mg/dL Magnesium 2.3 (1.6-2.3) mg/dL Total Bilirubin 0.6 (0.2-1.3) mg/dL AST 43 H (14-36) U/L ALT 43 H (4-34) U/L Alkaline Phosphatase 106 (38-126) U/L Troponin I (0.000-0.034) ng/mL Total Protein 7.1 (6.3-8.2) g/dL Albumin 4.2 (3.5-5.0) g/dL [place] <0.2 mmol/L 01/26/24 Range/Units 13:18 WBC (3.8-10.6) k/uL RBC (3.80-5.40) m/uL Hgb (11.4-16.0) gm/dL Hct (34.0-46.0) % MCV (80.0-100.0) fL MCH (25.0-35.0) pg MCHC (31.0-37.0) g/dL RDW (11.5-15.5) % Plt Count (150-450) k/uL MPV Neutrophils % % Lymphocytes % % Monocytes % % Eosinophils % % Basophils % % Neutrophils # (1.3-7.7) k/uL Lymphocytes # (1.0-4.8) k/uL Monocytes # (0-1.0) k/uL Eosinophils # (0-0.7) k/uL Basophils # (0-0.2) k/uL PT (10.0-12.5) sec INR (<1.2) APTT (22.0-30.0) sec Sodium (137-145) mmol/L Potassium (3.5-5.1) mmol/L Chloride (98-107) mmol/L Carbon Dioxide (22-30) mmol/L Anion Gap mmol/L BUN (7-17) mg/dL Creatinine (0.52-1.04) mg/dL Est GFR (CKD-EPI)AfAm (>60 ml/min/1.73 sqM) Est GFR (CKD-EPI)NonAf (>60 ml/min/1.73 sqM) Glucose (74-99) mg/dL Calcium (8.4-10.2) mg/dL Magnesium (1.6-2.3) mg/dL Total Bilirubin (0.2-1.3) mg/dL AST (14-36) U/L ALT (4-34) U/L Alkaline Phosphatase (38-126) U/L Troponin I <0.012 (0.000-0.034) ng/mL Total Protein (6.3-8.2) g/dL Albumin (3.5-5.0) g/dL [place] mmol/L Disposition Clinical Impression: Vertigo Disposition: HOME SELF-CARE Condition: Good Instructions (If sedation given, give patient instructions): Vertigo (ED) Prescriptions: Meclizine [Antivert] 25 mg PO TID #20 tab Is patient prescribed a controlled substance at d/c from ED?: No Referrals: Nathanael Flaherty DO [Primary Care Provider] - 1-2 days Time of Disposition: 14:31
[2024-01-26 13:26] VITALS: RESP 18
[2024-01-26 13:43] LABS: Basophils # (A) 0.1 k/uL (0-0.2); Basophils % (A) 1 %; Eosinophils # (A) 0.2 k/uL (0-0.7); Eosinophils % (A) 3 %; HCT 46.4 % (34.0-46.0); HGB 15.6 gm/dL (11.4-16.0); Lymphocytes # (A) 1.7 k/uL (1.0-4.8); Lymphocytes % (A) 26 %; MCH 31.5 pg (25.0-35.0); MCHC 33.6 g/dL (31.0-37.0); MCV 93.8 fL (80.0-100.0); Mean Platelet Volume 7.5; Monocytes # (A) 0.3 k/uL (0-1.0); Monocytes % (A) 4 %; Neutrophils # (A) 4.3 k/uL (1.3-7.7); Neutrophils % (A) 65 %; Platelet Count 253 k/uL (150-450); RBC 4.95 m/uL (3.80-5.40); RDW 13.5 % (11.5-15.5); WBC 6.6 k/uL (3.8-10.6)
[2024-01-26 13:58] LABS: Partial Thromboplastin Time 27.4 sec (22.0-30.0); Prothrombin Time 10.8 sec (10.0-12.5)
[2024-01-26 14:02] LABS: ALT 43 U/L (4-34); AST 43 U/L (14-36); African American GFR (CKD) >90 (>60 ml/min/1.73 sqM); Albumin 4.2 g/dL (3.5-5.0); Alkaline Phosphatase 106 U/L (38-126); Anion Gap 8 mmol/L; Blood Urea Nitrogen 19 mg/dL (7-17); Carbon Dioxide 28 mmol/L (22-30); Chloride 101 mmol/L (98-107); Glucose 123 mg/dL (74-99); Magnesium 2.3 mg/dL (1.6-2.3); Non-African American GFR(CKD) >90 (>60 ml/min/1.73 sqM); Potassium 3.6 mmol/L (3.5-5.1); Sodium 137 mmol/L (137-145); Total Bilirubin 0.6 mg/dL (0.2-1.3); Total Protein 7.1 g/dL (6.3-8.2)
--- NOTE | 2024-01-26 14:15 | CT ---
EXAMINATION TYPE: CT brain wo con DATE OF EXAM: 01/26/2024 COMPARISON: 07/14/2023. HISTORY: Dizziness. CT DLP: 1095.2 mGycm. Automated Exposure Control for Dose Reduction was Utilized. TECHNIQUE: CT scan of the head is performed without contrast. FINDINGS: There is no acute intracranial hemorrhage, mass effect, or midline shift identified. Area s of encephalomalacia are seen within the left middle cerebral artery territory which may relate to p rior insult or infarct.. This is unchanged since the previous examination. The ventricles and sulci a re within normal limits in size. The globes are intact and the visualized sinuses are clear. IMPRESSION: Chronic changes as above with no acute intracranial process. No significant change.
[2024-01-26 14:19] LABS: Lithium <0.2 mmol/L
[2024-01-26] MEDS: MECLIZINE 25 MG TAB PO STA (14:41)
[2024-01-26 15:13] VITALS: BP 104/68; PULSE 72; TEMP 97.8
== END 2024-01-26 14:45 | disposition home or self-care (01) ==
LOC: EC 13:11
DX: R42 Dizziness and giddiness (principal); F41.9 Anxiety disorder, unspecified; F31.9 Bipolar disorder, unspecified; Z87.891 Personal history of nicotine dependence; Z79.82 Long term (current) use of aspirin; Z79.899 Other long term (current) drug therapy; Z86.73 Personal history of transient ischemic attack (TIA), and cerebral infarction without residual deficits
CPT/HCPCS: 36415; 70450; 80053; 80178; 83735; 84484; 85025; 85610; 85730; 93005; 99285

== ENCOUNTER → 2024-02-09 | Outpatient (CLI) | payer MEDICARE, OTHER ==
--- NOTE | 2024-02-09 18:03 | US ---
EXAMINATION TYPE: US carotid duplex BILAT DATE OF EXAM: 02/09/2024 COMPARISON: NONE CLINICAL INDICATION: Female, 38 years old with history of R06.00 DYSPNEA R42 DIZZINESS AND GIDDINESS; stroke 10 years ago TECHNIQUE: Carotid duplex ultrasound examination. Indirect Doppler criteria was utilized. FINDINGS: EXAM MEASUREMENTS: RIGHT: Peak Systolic Velocity (PSV) cm/sec ----- Right CCA: 96.4 ----- Right ICA: 83.3 ----- Right ECA: 82.0 ICA/CCA ratio: 0.9 RIGHT: End Diastole cm/sec ----- Right CCA: 35.1 ----- Right ICA: 19.4 ----- Right ECA: 12.9 LEFT: Peak Systolic Velocity (PSV) cm/sec ----- Left CCA: 72.5 ----- Left ICA: 82.7 ----- Left ECA: 82.7 ICA/CCA ratio: 1.1 LEFT: End Diastole cm/sec ----- Left CCA: 19.2 ----- Left ICA: 32.2 ----- Left ECA: 11.5 VERTEBRALS (direction of flow): Right Vertebral: Antegrade Left Vertebral: Antegrade Rhythm: Normal SALT WASHER NOTES: no atherosclerotic plaque, elevated velocities, or stenosis noted. ICA/CCA ratios wnl spectral doppler limited by patients movement with breathing IMPRESSION: Less than 50% stenosis of the bilateral carotid bifurcations. Criteria for Assigning % of Stenosis / Diameter reduction (Estimation based on the indirect measurements of the internal carotid artery velocities (ICA PSV). 1. Normal (no stenosis)=ICA PSV < 125 cm/s: ratio < 2.0: ICA EDV<40 cm/s. 2. Less than 50% stenosis=ICA PSV < 125 cm/s: ratio < 2.0: ICA EDV<40 cm/s. 3. 50 to 69% stenosis=ICA PSV of 125 to 230 cm/s: ration 2.0 ? 4.0: ICA EDV 40-100 cm/s. 4. Greater than 70% stenosis to near occlusion= ICA PSV > 230 cm/s: ratio > 4.0: ICA EDV > 100 cm/s. 5. Near occlusion= ICA PSV velocities may be low or undetectable: variable ratio and ICA EDV. 6. Total occlusion=unable to detect flow.
--- NOTE | 2024-02-10 22:56 | CA ---
Transthoracic Echo Report Name: Agustina Simon Age: 38 Gender: F : 1985 Exam Date: 02/09/2024 14:02 Exam Location: [facility] Ht (in): 64 Wt (lb): 200 Ordering Physician: Nathanael Flaherty DO Attending/Referring Phys: Serena Hillman [facility] [employer] Maggi Bell RDCS Procedure CPT: Indications: R06.00 DYSPNEA R42 DIZZINESS AND GIDDINESS Cardiac Hx: Technical Quality: Contrast 1: Total Dose (mL): Contrast 2: Total Dose (mL): MEASUREMENTS (Male / Female) Normal Values 2D ECHO LV Diastolic Diameter PLAX 4.5 cm 4.2 - 5.9 / 3.9 - 5.3 cm LV Systolic Diameter PLAX 3.0 cm IVS Diastolic Thickness 1.0 cm 0.6 - 1.0 / 0.6 - 0.9 cm LVPW Diastolic Thickness 0.9 cm 0.6 - 1.0 / 0.6 - 0.9 cm LV Relative Wall Thickness 0.4 RV Internal Dim ED PLAX 2.9 cm LA Systolic Diameter LX 3.3 cm 3.0 - 4.0 / 2.7 - 3.8 cm LV Diastolic Volume MOD BP 77.7 cm??? 67 - 155 / 56 - 104 cm??? LV Systolic Volume MOD BP 34.0 cm??? - 58 / 19 - 49 cm??? LV Ejection Fraction MOD BP 56.2 % >= 55 % LV Cardiac Index MOD BP 1249.9 cm???/min???m??? LV Diastolic Volume MOD 4C 87.3 cm??? LV Systolic Volume MOD 4C 28.0 cm??? LV Ejection Fraction MOD 4C 67.9 % LV Cardiac Index MOD 4C 1696.5 cm???/min???m??? LV Diastolic Length 4C 7.1 cm LV Systolic Length 4C 5.6 cm LV Diastolic Volume MOD 2C 68.7 cm??? LV Systolic Volume MOD 2C 34.4 cm??? LV Ejection Fraction MOD 2C 50.0 % LV Cardiac Index MOD 2C 982.7 cm???/min???m??? LV Diastolic Length 2C 7.5 cm LV Systolic Length 2C 6.9 cm LA Volume 40.6 cm??? 18 - 58 / 22 - 52 cm??? LA Volume Index 19.7 cm???/m??? 16 - 28 cm???/m??? M-MODE Aortic Root Diameter MM 3.2 cm MV E Point Septal Separation 0.4 cm DOPPLER AV Peak Velocity 112.0 cm/s AV Peak Gradient 5.0 mmHg MV Area PHT 3.5 cm??? Mitral E Point Velocity 99.8 cm/s Mitral A Point Velocity 78.3 cm/s Mitral E to A Ratio 1.3 MV Deceleration Time 214.7 ms LV A' Lateral Velocity 11.2 cm/s LV E' Septal Velocity 7.8 cm/s Mitral E to LV E' Septal Ratio 12.8 FINDINGS Left Ventricle Left ventricular ejection fraction is estimated at 55-60 %. Left ventricular cavity size normal. Left ventricular wall thickness normal. Normal left ventricular wall motion. Right Ventricle Normal right ventricular size. Unable to estimate the right ventricular systolic pressure. Right Atrium Normal right atrial size. Left Atrium Normal left atrial size. Mitral Valve Structurally normal mitral valve. Trace mitral regurgitation. Aortic Valve Trileaflet aortic valve. No aortic valve stenosis or regurgitation. Tricuspid Valve Structurally normal tricuspid valve. No tricuspid stenosis, regurgitation or prolapse. Pulmonic Valve Structurally normal pulmonic valve. Pericardium No pericardial effusion. Aorta Normal size aortic root and proximal ascending aorta. CONCLUSIONS Left ventricular ejection fraction is estimated at 55-60 %. No obvious regional wall motion abnormality No significant valvular dysfunction No pericardial effusion. Previewed by: Dr Kyaw Marcelo (Electronically Signed) Final Date: 10 February 2024 22:55
== END | disposition home or self-care (01) ==
LOC: RADECHMAIN 12:20
PROVIDERS: ATTEND Family Medicine
DX: I65.23 Occlusion and stenosis of bilateral carotid arteries (principal); R06.00 Dyspnea, unspecified; R42 Dizziness and giddiness
CPT/HCPCS: 93306; 93880

== ENCOUNTER 2024-05-24 02:41 | Observation (INO) | payer MEDICARE, OTHER ==
[2024-05-24] MEDS: SODIUM CHLORIDE 0.9% 1,000 ML IV STA (03:14)
[2024-05-24] MEDS: LORazepam 0.5 MG TAB PO STA (03:14)
[2024-05-24 03:35] LABS: Partial Thromboplastin Time 26.7 sec (22.0-30.0); Prothrombin Time 10.6 sec (10.0-12.5)
[2024-05-24 03:41] LABS: Basophils # (A) 0.1 k/uL (0-0.2); Basophils % (A) 1 %; Eosinophils # (A) 0.3 k/uL (0-0.7); Eosinophils % (A) 4 %; Glucose 93 mg/dL (74-99); HCT 41.2 % (34.0-46.0); HGB 13.6 gm/dL (11.4-16.0); Lymphocytes # (A) 2.5 k/uL (1.0-4.8); Lymphocytes % (A) 34 %; MCH 30.8 pg (25.0-35.0); MCV 93.4 fL (80.0-100.0); Mean Platelet Volume 7.9; Monocytes # (A) 0.4 k/uL (0-1.0); Monocytes % (A) 6 %; Neutrophils % (A) 54 %; Platelet Count 265 k/uL (150-450); RBC 4.41 m/uL (3.80-5.40); RDW 13.5 % (11.5-15.5); Sodium 138 mmol/L (137-145); WBC 7.4 k/uL (3.8-10.6)
[2024-05-24 03:42] LABS: ALT 26 U/L (4-34); AST 30 U/L (14-36); African American GFR (CKD) >90 (>60 ml/min/1.73 sqM); Albumin 3.6 g/dL (3.5-5.0); Alkaline Phosphatase 95 U/L (38-126); Anion Gap 7 mmol/L; Blood Urea Nitrogen 14 mg/dL (7-17); Calcium 9.4 mg/dL (8.4-10.2); Carbon Dioxide 27 mmol/L (22-30); Chloride 104 mmol/L (98-107); Magnesium 2.1 mg/dL (1.6-2.3); Non-African American GFR(CKD) >90 (>60 ml/min/1.73 sqM); Total Bilirubin 0.4 mg/dL (0.2-1.3); Total Protein 5.9 g/dL (6.3-8.2)
[2024-05-24 05:24] LABS: Potassium 2.6 mmol/L (3.5-5.1)
[2024-05-24] MEDS ORDERED: Potassium Replacement Protocol 1 EACH MISC MISCELLANE PRN (05:40)
[2024-05-24] MEDS ORDERED: NALOXONE 0.4 MG/ML 1 ML VIAL IV PRN (05:41)
--- NOTE | 2024-05-24 05:43 | ED ---
General Adult HPI - General Chief complaint: Anxiety Stated complaint: Anxiety Time Seen by Provider: 05/24/24 03:00 Source: patient, EMS, RN notes reviewed, old records reviewed Mode of arrival: EMS Limitations: altered mental status - History of Present Illness Initial comments: Is a 39-year-old female with past medical history remarkable for prior CVA with residual weakness presents emergency department complaining of anxiety attack like sensation at home. States it felt like a normal panic attack for her. This occurred multiple hours prior to arrival. Currently has no symptoms. No cardiac history. Presents for further evaluation at this time. Denies any nausea, vomiting, diarrhea. Denies any diaphoresis. States the pain was somewhat in her chest and somewhat in her back however it did resolve. Had some shortness of breath with it 2. The symptoms are very typical for anxiety attacks. - Related Data Home Medications Medication Instructions Recorded Confirmed Atorvastatin [Lipitor] 40 mg PO DAILY 06/01/19 01/26/24 [place] Carbonate 600 mg PO HS 06/01/19 01/26/24 ARIPiprazole IM SYRINGE [Abilify 400 mg IM Q28D 05/28/22 01/26/24 Maintena Syringe] Glycopyrrolate 1 mg PO DAILY 05/28/22 01/26/24 Vitamin B Complex 1 cap PO DAILY 05/28/22 01/26/24 Acetaminophen Tab [Tylenol] 650 mg PO Q6H PRN 01/26/24 01/26/24 Chlorthalidone 50 mg PO DAILY 01/26/24 01/26/24 Propranolol LA [Inderal LA] 60 mg PO BID 01/26/24 01/26/24 Previous Rx's Medication Instructions Recorded Meclizine [Antivert] 25 mg PO TID #20 tab 01/26/24 Allergies Allergy/AdvReac Type Severity Reaction Status Date / Time No Known Allergies Allergy Verified 05/24/24 02:51 Review of Systems ROS Statement: Those systems with pertinent positive or pertinent negative responses have been documented in the HPI. Review of Systems: CONST: Denies fever EYES: Denies blurry vision ENT: Denies nasal congestion C/V: Denies Chest pain RESP: Denies shortness of breath GI: Denies abdominal pain : Denies dysuria SKIN: Denies rash. MSK: Denies joint pain. NEURO: Denies headache ROS Other: All systems not noted in ROS Statement are negative. Past Medical History Past Medical History: CVA/TIA Additional Past Medical History / Comment(s): polycystic ovarian syndrome History of Any Multi-Drug Resistant Organisms: None Reported Past Surgical History: Unable to Obtain Additional Past Surgical History / Comment(s): 3- c-sections, wisdom teeth removed, thrombectomy Past Anesthesia/Blood Transfusion Reactions: No Reported Reaction Past Psychological History: Anxiety, Bipolar, Depression, Schizophrenia Smoking Status: Former smoker Past Alcohol Use History: None Reported Past Drug Use History: None Reported - Past Family History Father Family Medical History: No Reported History Additional Family Medical History / Comment(s): Father is alive with no major medical problems. Mother Family Medical History: No Reported History Additional Family Medical History / Comment(s): Mother is alive with no major medical problems. Brother(s) Additional Family Medical History / Comment(s): She has one sister with no healthe problems and one brother that at age 16 years from MVA. General Exam - General Exam Comments Initial Comments: General: Appears in no acute distress. HEAD: Normal with no signs of head trauma. EYES: PERRLA, EOMI, conjunctiva normal, no discharge. ENT: Hearing grossly intact, normal oropharynx. RESPIRATORY: Clear breath sounds bilaterally. No wheezes, rales, or rhonchi. C/V: Regular rate and rhythm. S1 and S2 auscultated, no edema, peripheral pulses 2+ and intact throughout ABD: Abd is soft, nontender, nondistended EXT: Normal range of motion, no obvious deformity SKIN: No rashes or lesions observed on exposed skin. NEURO: Alert and oriented x 4. Limitations: altered mental status Course Vital Signs 05/24/24 05/24/24 05/24/24 02:45 04:00 05:00 Temperature 97.8 F Pulse Rate 60 64 60 Respiratory 18 18 18 Rate Blood Pressure 117/74 104/65 111/71 O2 Sat by Pulse 99 98 99 Oximetry 05/24/24 06:06 Temperature Pulse Rate 66 Respiratory 18 Rate Blood Pressure 108/73 O2 Sat by Pulse 99 Oximetry Medical Decision Making - Medical Decision Making Was pt. sent in by a medical professional or institution (, PA, PARTS REMOVER, urgent care, hospital, or prison...) When possible be specific @ -No Did you speak to anyone other than the patient for history (EMS, parent, family, police, friend...)? What history was obtained from this source @ -No Did you review nursing and triage notes (agree or disagree)? Why? @ -I reviewed and agree with nursing and triage notes Were old charts reviewed (outside hosp., previous admission, EMS record, old EKG, old radiological studies, urgent care reports/EKG's, prison records)? Report findings @ -No old charts were reviewed Differential Diagnosis (chest pain, altered mental status, abdominal pain women, abdominal pain men, vaginal bleeding, weakness, fever, dyspnea, syncope, headache, dizziness, GI bleed, back pain, seizure, CVA, palpatations, mental health, musculoskeletal)? @ -Anxiety, electrolyte abnormality, chest pain. This list is not all inclusive. EKG interpreted by me (3pts min.). @ -As above X-rays interpreted by me (1pt min.). @ -X-ray reveals no obvious acute cardiopulmonary process. CT interpreted by me (1pt min.). @ -None done U/S interpreted by me (1pt. min.). @ -None done What testing was considered but not performed or refused? (CT, X-rays, U/S, labs)? Why? @ -None What meds were considered but not given or refused? Why? @ -None Did you discuss the management of the patient with other professionals (pro fessionals i.e. , PA, [employer]S REMOVER, lab, RT, psych nurse, social insurance adviser, research center partner, teacher, plain clothes police officer, returned case inspector)? Give summary @ -Discussed with Dr. Milner who accepted the admission. Was smoking cessation discussed for >3mins.? @ -No Was critical care preformed (if so, how long)? @ -No Were there social determinants of health that impacted care today? How? (Homelessness, low income, unemployed, alcoholism, drug addiction, transportation, low edu. Level, literacy, decrease access to med. care, halfway, rehab)? @ -No Was there de-escalation of care discussed even if they declined (Discuss DNR or withdrawal of care, Hospice)? DNR status @ -No What co-morbidities impacted this encounter? (DM, HTN, Smoking, COPD, CAD, Cancer, CVA, ARF, Chemo, Hep., AIDS, mental health diagnosis, sleep apnea, morbid obesity)? @ -None Was patient admitted / discharged? Hospital course, mention meds given and route, prescriptions, significant lab abnormalities, going to OR and other pertinent info. @ -Patient presents with anxiety attack type episode at home which is since resolved but wanted to be evaluated. No symptoms currently. We will obtain cardiac workup. Vital signs within acceptable limits. EKG shows no signs of acute ischemia. Chest x-ray unremarkable. Labs remarkable for hypokalemia of 2.6. Troponin is undetectable. I discussed results with patient. She will be admitted for hypokalemia. She was in agreement this plan. Patient given supplemental potassium per protocol. Discussed admission with Dr. Milner who accepted the admission. Undiagnosed new problem with uncertain prognosis? @ -No Drug Therapy requiring intensive monitoring for toxicity (Heparin, Nitro, Insulin, Cardizem)? @ -No Were any procedures done? @ -No Diagnosis/symptom? @ -Anxiety, hypokalemia Acute, or Chronic, or Acute on Chronic? @ -Acute Uncomplicated (without systemic symptoms) or Complicated (systemic symptoms)? @ -Complicated Side effects of treatment? @ -No Exacerbation, Progression, or Severe Exacerbation? @ -No Poses a threat to life or bodily function? How? (Chest pain, [place], HI, pneumonia, PE, COPD, DKA, ARF, appy, cholecystitis, CVA, Diverticulitis, Homicidal, Suicidal, threat to staff... and all critical care pts) @ -Yes, potassium abnormalities can lead to arrhythmias. - Lab Data Result diagrams: 05/24/24 03:07 05/24/24 03:07 Lab Results 05/24/24 05/24/24 05/24/24 Range/Units 03:07 03:07 03:07 WBC 7.4 (3.8-10.6) k/uL RBC 4.41 (3.80-5.40) m/uL Hgb 13.6 (11.4-16.0) gm/dL Hct 41.2 (34.0-46.0) % MCV 93.4 (80.0-100.0) fL MCH 30.8 (25.0-35.0) pg MCHC 33.0 (31.0-37.0) g/dL RDW 13.5 (11.5-15.5) % Plt Count 265 (150-450) k/uL MPV 7.9 Neutrophils % 54 % Lymphocytes % 34 % Monocytes % 6 % Eosinophils % 4 % Basophils % 1 % Neutrophils # 4.0 (1.3-7.7) k/uL Lymphocytes # 2.5 (1.0-4.8) k/uL Monocytes # 0.4 (0-1.0) k/uL Eosinophils # 0.3 (0-0.7) k/uL Basophils # 0.1 (0-0.2) k/uL PT 10.6 (10.0-12.5) sec INR 1.0 (<1.2) APTT 26.7 (22.0-30.0) sec Sodium 138 (137-145) mmol/L Potassium 2.6 L* (3.5-5.1) mmol/L Chloride 104 (98-107) mmol/L Carbon Dioxide 27 (22-30) mmol/L Anion Gap 7 mmol/L BUN 14 (7-17) mg/dL Creatinine 0.57 (0.52-1.04) mg/dL Est GFR (CKD-EPI)AfAm >90 (>60 ml/min/1.73 sqM) Est GFR (CKD-EPI)NonAf >90 (>60 ml/min/1.73 sqM) Glucose 93 (74-99) mg/dL Calcium 9.4 (8.4-10.2) mg/dL Magnesium 2.1 (1.6-2.3) mg/dL Total Bilirubin 0.4 (0.2-1.3) mg/dL AST 30 (14-36) U/L ALT 26 (4-34) U/L Alkaline Phosphatase 95 (38-126) U/L Troponin I (0.000-0.034) ng/mL Total Protein 5.9 L (6.3-8.2) g/dL Albumin 3.6 (3.5-5.0) g/dL 05/24/24 Range/Units 03:07 WBC (3.8-10.6) k/uL RBC (3.80-5.40) m/uL Hgb (11.4-16.0) gm/dL Hct (34.0-46.0) % MCV (80.0-100.0) fL MCH (25.0-35.0) pg MCHC (31.0-37.0) g/dL RDW (11.5-15.5) % Plt Count (150-450) k/uL MPV Neutrophils % % Lymphocytes % % Monocytes % % Eosinophils % % Basophils % % Neutrophils # (1.3-7.7) k/uL Lymphocytes # (1.0-4.8) k/uL Monocytes # (0-1.0) k/uL Eosinophils # (0-0.7) k/uL Basophils # (0-0.2) k/uL PT (10.0-12.5) sec INR (<1.2) APTT (22.0-30.0) sec Sodium (137-145) mmol/L Potassium (3.5-5.1) mmol/L Chloride (98-107) mmol/L Carbon Dioxide (22-30) mmol/L Anion Gap mmol/L BUN (7-17) mg/dL Creatinine (0.52-1.04) mg/dL Est GFR (CKD-EPI)AfAm (>60 ml/min/1.73 sqM) Est GFR (CKD-EPI)NonAf (>60 ml/min/1.73 sqM) Glucose (74-99) mg/dL Calcium (8.4-10.2) mg/dL Magnesium (1.6-2.3) mg/dL Total Bilirubin (0.2-1.3) mg/dL AST (14-36) U/L ALT (4-34) U/L Alkaline Phosphatase (38-126) U/L Troponin I <0.012 (0.000-0.034) ng/mL Total Protein (6.3-8.2) g/dL Albumin (3.5-5.0) g/dL - EKG Data -: EKG Interpreted by Me EKG Comments: 12-lead Electrocardiogram Interpretation Note EKG was reviewed and interpreted by myself. 12-lead ECG performed at 0249 is int erpreted by me as revealing sinus bradycardia with first-degree AV block at a rate of 55 beats per minute. [place] is normal. CA interval is 213 ms, QRS duration is 98 ms, QTc is 429 ms. There were no ST or T wave abnormalities to suggest myocardial ischemia or injury. R wave progression across the precordium was satisfactory. By my interpretation this EKG is non-diagnostic for acute ischemia. Disposition Clinical Impression: Acute anxiety, Hypokalemia Disposition: ADMITTED IP TO THIS HOSP Condition: Stable Time of Disposition: 05:40
[2024-05-24] MEDS: POTASSIUM CHLORIDE ER 20 MEQ TAB.ER PO SCH (05:55)
--- NOTE | 2024-05-24 06:44 | XR ---
EXAM: XR Chest, 2 Views CLINICAL HISTORY: ITS.REASON XR Reason: Chest Pain TECHNIQUE: Frontal and lateral views of the chest. COMPARISON: No relevant prior studies available. IMPRESSION: 1. Cardiomegaly loop recorder. 2. Otherwise, no acute cardiopulmonary abnormality.
--- NOTE | 2024-05-24 08:49 | P.HPIM ---
History of Present Illness Patient is a pleasant 39 years old female with past medical history of CVA, as patient states about 10 years ago however when asked her that she sees neurologist she says yes once after that event and when I asked her did he tell you you have stroke she answered he told me I can have kids after that I broke up with my . Her PCP Dr. Flaherty, she is on multiple medication including diuretic, chlorthalidone documented on of her medication, not verified yet though. This time she presents with chest pain and back pain, she states she woke up about 1:00 in the morning complaining from severe pain in her back that goes to the left chest felt like burning and lasted about 3.5 hours With no associated shortness of breath or coughing. Currently she does not have chest pain but she would like to see her heart doctor/bologna maker No dyspnea no coughing, no change in urine or bowel habits no abdominal pain vomiting diarrhea, no headache dizziness weakness numbness She denies smoking alcohol or illicit drugs She states she takes aspirin at home Hemodynamically she is stable CBC BMP and LFT were unremarkable except for low potassium 2.6 Troponin x 1 is negative Chest x-ray is negative for acute process EKG showing sinus bradycardia at [address]-T changes. Inderal is one of her known 45 medication list Patient states she has problems and stressful situation with her family for the last 2 weeks but she denies any hopelessness helplessness she denies homicidal or suicidal ideation. Review of Systems Review of systems CONSTITUTIONAL: No fever, no malaise, no fatigue. HEENT: No recent visual problems or hearing problems. Denied any sore throat. CARDIOVASCULAR: No orthopnea, PND, no palpitations, no syncope. PULMONARY: No shortness of breath, no cough, no hemoptysis. GASTROINTESTINAL: No diarrhea, no nausea, no vomiting, no abdominal pain. Normoactive bowel sounds. NEUROLOGICAL: No headaches, no weakness, no numbness. HEMATOLOGICAL: Denies any bleeding or petechiae. GENITOURINARY: Denies any burning micturition, frequency, or urgency. MUSCULOSKELETAL/RHEUMATOLOGICAL: Denies any joint pain, swelling, or any muscle pain. ENDOCRINE: Denies any polyuria or polydipsia. Past Medical History Past Medical History: CVA/TIA Additional Past Medical History / Comment(s): polycystic ovarian syndrome History of Any Multi-Drug Resistant Organisms: None Reported Past Surgical History: Unable to Obtain Additional Past Surgical History / Comment(s): 3- c-sections, wisdom teeth removed, thrombectomy Past Anesthesia/Blood Transfusion Reactions: No Reported Reaction Past Psychological History: Anxiety, Bipolar, Depression, Schizophrenia Smoking Status: Former smoker Past Alcohol Use History: None Reported Past Drug Use History: None Reported - Past Family History Father Family Medical History: No Reported History Additional Family Medical History / Comment(s): Father is alive with no major medical problems. Mother Family Medical History: No Reported History Additional Family Medical History / Comment(s): Mother is alive with no major medical problems. Brother(s) Additional Family Medical History / Comment(s): She has one sister with no healthe problems and one brother that at age 16 years from MVA. Medications and Allergies Home Medications Medication Instructions Recorded Confirmed Type Atorvastatin [Lipitor] 40 mg PO DAILY 06/01/19 01/26/24 History [place] Carbonate 600 mg PO HS 06/01/19 01/26/24 History ARIPiprazole IM SYRINGE [Abilify 400 mg IM Q28D 05/28/22 01/26/24 History Maintena Syringe] Glycopyrrolate 1 mg PO DAILY 05/28/22 01/26/24 History Vitamin B Complex 1 cap PO DAILY 05/28/22 01/26/24 History Acetaminophen Tab [Tylenol] 650 mg PO Q6H PRN 01/26/24 01/26/24 History Chlorthalidone 50 mg PO DAILY 01/26/24 01/26/24 History Meclizine [Antivert] 25 mg PO TID #20 tab 01/26/24 Rx Propranolol LA [Inderal LA] 60 mg PO BID 01/26/24 01/26/24 History Allergies Allergy/AdvReac Type Severity Reaction Status Date / Time No Known Allergies Allergy Verified 05/24/24 02:51 Physical Exam Vitals: Vital Signs Temp Pulse Resp BP Pulse Ox 05/24/24 07:13 61 17 109/68 98 05/24/24 06:06 66 18 108/73 99 05/24/24 05:00 60 18 111/71 99 05/24/24 04:00 64 18 104/65 98 05/24/24 02:45 97.8 F 60 18 117/74 99 Intake and Output 05/23/24 05/24/24 05/24/24 22:59 06:59 14:59 Other: Weight 72.575 kg GENERAL: The patient is alert and oriented x3, not in any acute distress. Well developed, well nourished. HEENT: Pupils are round and equally reacting to light. EOMI. No scleral icterus. No conjunctival pallor. Normocephalic, atraumatic. No pharyngeal erythema. No thyromegaly. CARDIOVASCULAR: S1 and S2 present. No murmurs, rubs, or gallops. PULMONARY: Chest is clear to auscultation, no wheezing , no crackles. ABDOMEN: Soft, nontender, nondistended, normoactive bowel sounds. No palpable organomegaly. MUSCULOSKELETAL: No joint swelling or deformity. EXTREMITIES: No cyanosis, clubbing, or pedal edema. NEUROLOGICAL: Gross neurological examination did not reveal any focal deficits. SKIN: No rashes. no petechiae. Results CBC & Chem 7: 05/24/24 03:07 05/24/24 03:07 Labs: Abnormal Lab Results - Last 24 Hours (Table) 05/24/24 Range/Units 03:07 Potassium 2.6 L* (3.5-5.1) mmol/L Total Protein 5.9 L (6.3-8.2) g/dL Assessment and Plan Assessment: Back pain and chest pain currently resolved looks like related to her anxiety Anxiety and history of bipolar Hypokalemia most likely secondary to diuretic. Patient counseled to stop taking diuretics upon discharge chlorthalidone and she agrees Obesity with BMI of 30.2 Plan: Replace potassium per protocol Discontinue chlorthalidone, patient informed and she agrees. Patient states she takes it for leg swelling. Her blood pressure is acceptable not elevated Patient request to see cardiology which is consulted Resume rest of home medication GI and DVT prophylaxis Possible discharge soon once potassium corrected and remained stable
[2024-05-24] MEDS ORDERED: VENLAFAXINE HCL 25 MG TAB PO SCH (09:00)
[2024-05-24] MEDS: POTASSIUM CHLORIDE ER 20 MEQ TAB.ER PO STA (13:45)
[2024-05-24] MEDS: PROPRANOLOL LA 60 MG CAP.SA.24H PO SCH (22:06)
[2024-05-24] MEDS: LITHIUM CARBONATE 300 MG CAP PO SCH (22:06)
[2024-05-25] MEDS ORDERED: DOBUTamine DRIP for NUC MED 500 MG in DEXTROSE/WATER 1 250ML.BAG IV PRN (08:12)
[2024-05-25 08:41] LABS: Basophils # (A) 0.06 X 10*3/uL (0.00-0.10); Eosinophils % (A) 3.3 %; HCT 39.4 % (37.2-46.3); HGB 13.4 g/dL (12.0-15.0); Lymphocytes # (A) 1.91 X 10*3/uL (0.90-5.00); Lymphocytes % (A) 31.7 %; MCH 30.7 pg (27.0-32.0); MCV 90.4 FL (80.0-97.0); Mean Platelet Volume 9.8 FL (9.5-12.2); Monocytes % (A) 6.6 %; NRBC Per 100 WBC 0 X 10*3/uL (0.00-0.01); Neutrophils # (A) 3.45 X 10*3/uL (1.80-7.70); Neutrophils % (A) 57.2 %; Platelet Count 249 X 10*3/uL (140-440); RBC 4.36 X 10*6/uL (4.10-5.20); RDW 13.3 % (11.5-14.5); WBC 6.03 X 10*3/uL (4.50-10.00)
[2024-05-25 09:00] LABS: ALT 28 U/L (8-44); AST 28 U/L (13-35); Albumin 3.7 g/dL (3.8-4.9); Albumin/Globulin Ratio 1.68 Ratio (1.60-3.17); Alkaline Phosphatase 85 U/L (41-126); BUN/Creat Ratio 17.88 Ratio (12.00-20.00); Blood Urea Nitrogen 14.3 mg/dL (9.0-27.0); Calcium 9.4 mg/dL (8.7-10.3); Carbon Dioxide 25.9 mmol/L (21.6-31.8); Chloride 103 mmol/L (96-109); Globulin 2.2 g/dL (1.6-3.3); Glucose 98 mg/dL (70-110); Potassium 3.3 mmol/L (3.5-5.5); Sodium 139 mmol/L (135-145); Total Bilirubin 0.4 mg/dL (0.3-1.2); Total Protein 5.9 g/dL (6.2-8.2)
--- NOTE | 2024-05-25 09:03 | P.CRDCN ---
History of Present Illness History of present illness: HISTORY OF PRESENT ILLNESS: This is a 39-year-old female with a past medical history significant for bipolar disorder, anxiety, CVA, and obesity. Patient does not follow with a cardiologi st. We have been asked to see the patient in consultation for chest pain. Patient examined at the bedside. Patient states 2 nights ago she woke up at 1:00 in the morning and felt diaphoretic and had pain in her shoulders. She states that she began to feel palpitations and then the pain went from her back into her chest. She also reports she was feeling short of breath. She states the pain lasted for approximately 1 hour. She states she was not doing anything physical with the patient occurred. Her chest pain has since resolved. Patient's vital signs are stable. Potassium this morning 3.3 after supplementation. DIAGNOSTICS: - EKG reveals sinus mechanism with no signs of acute ischemia. - Chest xray cardiomegaly. Loop recorder. Otherwise no acute cardiopulmonary process seen. - Laboratory data: WBC 7.4. Hemoglobin 13.6. Platelet count 265. Sodium 138. Potassium 2.6. BUN 14. Creatinine 0.57. Magnesium 2.1. Troponin negative x 2. - Current home cardiac medications include propranolol 60 mg at night, chlorthalidone 50 mg daily, Lipitor 40 mg daily, and aspirin 325 mg daily -Carotid Doppler performed in January 2024 revealed less than 50% stenosis of bilateral carotid bifurcations - Most recent echocardiogram obtained in January 2024 revealed ejection fraction 55 to 60%, no obvious regional wall motion abnormalities, no significant valvular dysfunction and no pericardial effusion -Patient underwent Lexiscan stress test in September 2018 which was negative for ischemia REVIEW OF SYSTEMS: At the time of my exam: CONSTITUTIONAL: Denies fever or chills. HEENT: Denies blurred vision, vision changes, or eye pain. Denies hemoptysis CARDIOVASCULAR: Denies chest pain. Denies orthopnea. Denies PND. Denies palpitations RESPIRATORY: Denies shortness of breath. GASTROINTESTINAL: Denies abdominal pain. Denies nausea or vomiting. HEMATOLOGIC: Denies bleeding disorders. GENITOURINARY: Denies any blood in urine. SKIN: Denies pruitis. Denies rash. PHYSICAL EXAM: VITAL SIGNS: Reviewed. GENERAL: Well-developed in no acute distress. HEENT: Head is normocephalic. Pupils are equal, round. Sclerae anicteric. Mucous membranes of the mouth are moist. Neck supple. No JVD or thyromegaly LUNGS: Respirations even and unlabored. Lungs essentially clear to auscultation bilaterally. HEART: Regular rate and rhythm. S1 and S2 heard. ABDOMEN: Soft. Nondistended. Nontender. EXTREMITIES: Normal range of motion. No clubbing or cyanosis. Peripheral pulses intact. No lower extremity edema NEUROLOGIC: Awake and alert. Oriented x 3. ASSESSMENT: Chest pain Severe hypokalemia, likely secondary to diuretics Anxiety History of loop recorder insertion, 10 years ago History of bipolar disorder Obesity: BMI 30.2 Reported history of CVA per patient, approximately 10 years ago PLAN: An acute coronary but has been ruled out Replace potassium per protocol Hold diuretics secondary to hypokalemia Obtain 2D echo to assess cardiac structure and function Patient to undergo dobutamine stress test today If negative, she may be discharged home from a cardiac standpoint Nurse practitioner note has been reviewed by physician. Signing provider agrees with the documented findings, assessment, and plan of care documented by LABORER VINEYARD as a scribe. Past Medical History Past Medical History: CVA/TIA Additional Past Medical History / Comment(s): polycystic ovarian syndrome History of Any Multi-Drug Resistant Organisms: None Reported Past Surgical History: Unable to Obtain Additional Past Surgical History / Comment(s): 3- c-sections, wisdom teeth removed, thrombectomy Past Anesthesia/Blood Transfusion Reactions: No Reported Reaction Past Psychological History: Anxiety, Bipolar, Depression, Schizophrenia Smoking Status: Former smoker Past Alcohol Use History: None Reported Past Drug Use History: None Reported - Past Family History Father Family Medical History: No Reported History Additional Family Medical History / Comment(s): Father is alive with no major medical problems. Mother Family Medical History: No Reported History Additional Family Medical History / Comment(s): Mother is alive with no major medical problems. Brother(s) Additional Family Medical History / Comment(s): She has one sister with no healthe problems and one brother that at age 16 years from MVA. Medications and Allergies Home Medications Medication Instructions Recorded Confirmed Type Atorvastatin [Lipitor] 40 mg PO DAILY 06/01/19 05/24/24 History Hernandez Carbonate 600 mg PO HS 06/01/19 05/24/24 History ARIPiprazole IM SYRINGE [Abilify 400 mg IM Q28D 05/28/22 05/24/24 History Maintena Syringe] Glycopyrrolate 1 mg PO DAILY 05/28/22 05/24/24 History Acetaminophen Tab [Tylenol] 650 mg PO Q6H PRN 01/26/24 05/24/24 History Chlorthalidone 50 mg PO DAILY 01/26/24 05/24/24 History Propranolol LA [Inderal LA] 60 mg PO HS 01/26/24 05/24/24 History Aspirin EC [Ecotrin] 325 mg PO DAILY 05/24/24 05/24/24 History Doxylamine Succinate [Unisom] 25 mg PO HS PRN 05/24/24 05/24/24 History Allergies Allergy/AdvReac Type Severity Reaction Status Date / Time prazosin Allergy Rash/Hives Verified 05/24/24 16:40 Physical Exam Vitals: Vital Signs Temp Pulse Resp BP Pulse Ox 05/24/24 07:13 61 17 109/68 98 05/24/24 06:06 66 18 108/73 99 05/24/24 05:00 60 18 111/71 99 05/24/24 04:00 64 18 104/65 98 05/24/24 02:45 97.8 F 60 18 117/74 99 Intake and Output 05/23/24 05/24/24 05/24/24 22:59 06:59 14:59 Other: Weight 72.575 kg Results 05/25/24 03:48 05/24/24 11:26 Cardiac Enzymes 05/24/24 05/24/24 05/24/24 Range/Units 03:07 03:07 07:22 AST 30 (14-36) U/L Troponin I <0.012 <0.012 (0.000-0.034) ng/mL Coagulation 05/24/24 Range/Units 03:07 PT 10.6 (10.0-12.5) sec APTT 26.7 (22.0-30.0) sec CBC 05/24/24 Range/Units 03:07 WBC 7.4 (3.8-10.6) k/uL RBC 4.41 (3.80-5.40) m/uL Hgb 13.6 (11.4-16.0) gm/dL Hct 41.2 (34.0-46.0) % Plt Count 265 (150-450) k/uL Comprehensive Metabolic Panel 05/24/24 Range/Units 03:07 Sodium 138 (137-145) mmol/L Potassium 2.6 L* (3.5-5.1) mmol/L Chloride 104 (98-107) mmol/L Carbon Dioxide 27 (22-30) mmol/L BUN 14 (7-17) mg/dL Creatinine 0.57 (0.52-1.04) mg/dL Glucose 93 (74-99) mg/dL Calcium 9.4 (8.4-10.2) mg/dL AST 30 (14-36) U/L ALT 26 (4-34) U/L Alkaline Phosphatase 95 (38-126) U/L Total Protein 5.9 L (6.3-8.2) g/dL Albumin 3.6 (3.5-5.0) g/dL Current Medications Generic Name Dose Route Start Last Admin Trade Name Freq PRN Reason Stop Dose Admin Miscellaneous Information 1 each 05/24/24 05:40 Potassium Replacement Protocol 1 Each Misc MISCELLANE DAILY PRN Per Protocol Protocol Naloxone HCl 0.2 mg 05/24/24 05:41 Naloxone 0.4 Mg/Ml 1 Ml Vial IV Q2M PRN Opioid Reversal Intake and Output 05/23/24 05/24/24 05/24/24 22:59 06:59 14:59 Other: Weight 72.575 kg 05/24/24 03:07 05/24/24 03:07
[2024-05-25] MEDS: POTASSIUM CHLORIDE ER 20 MEQ TAB.ER PO STA (09:06)
[2024-05-25] MEDS ORDERED: AMINOPHYLLINE 500 MG/20 ML VIAL IV PRN (11:46)
[2024-05-25] MEDS ORDERED: REGADENOSON 0.4 MG/5 ML SYRINGE IV PRN (11:46)
[2024-05-25] MEDS ORDERED: CAFFEINE CITRATE 60 MG/3 ML VIAL IV PRN (11:46)
--- NOTE | 2024-05-25 12:33 | CA ---
Transthoracic Echo Report Name: Agustina Simon Age: 39 Gender: F : 1985 Exam Date: 05/25/2024 11:37 Exam Location: [place] Echo Ht (in): Wt (lb): Ordering Physician: Margret Gr Attending/Referring Phys: [id number], Simón Ring Stamper Susan Rome, JACQUELYN Procedure CPT: Indications: LV function Cardiac Hx: Technical Quality: Good Contrast 1: Total Dose (mL): Contrast 2: Total Dose (mL): MEASUREMENTS (Male / Female) Normal Values 2D ECHO LV Diastolic Diameter PLAX 4.8 cm 4.2 - 5.9 / 3.9 - 5.3 cm LV Systolic Diameter PLAX 3.0 cm IVS Diastolic Thickness 0.8 cm 0.6 - 1.0 / 0.6 - 0.9 cm LVPW Diastolic Thickness 0.6 cm 0.6 - 1.0 / 0.6 - 0.9 cm LV Relative Wall Thickness 0.3 FINDINGS Left Ventricle Left ventricular ejection fraction is estimated at 55-60 %. Left ventricular cavity size normal. Left ventricular wall thickness normal. No obvious regional wall motion abnormalities. Right Ventricle Normal right ventricular size and function. Right Atrium Normal right atrial size. Left Atrium Normal left atrial size. Mitral Valve Structurally normal mitral valve. Aortic Valve Trileaflet aortic valve. Tricuspid Valve Structurally normal tricuspid valve. Pulmonic Valve Structurally normal pulmonic valve. Pericardium No pericardial effusion. Aorta Aortic root and proximal ascending aorta not assessed CONCLUSIONS Limited echo. Normal left ventricle size and systolic function with no segmental wall motion abnormality Previewed by: Dr. Shanique Lozada MD (Electronically Signed) Final Date: 25 May 2024 12:32
[2024-05-25] MEDS ORDERED: POTASSIUM CHLORIDE ER 20 MEQ TAB.ER PO STA (13:50)
--- NOTE | 2024-05-25 14:38 | NM ---
EXAMINATION TYPE: NM stress lexiscan cardiolite DATE OF EXAM: 05/25/2024 COMPARISON: 09/22/2018 CLINICAL INDICATION: Female, 39 years old with history of CP; TECHNIQUE: After the intravenous administration of 10.3 mCi Tc 99m Sestamibi - Cardiolite resting SP ECT images acquired 45 minutes post injection. The patient received 0.4mg Lexiscan, 26.4 mCi Tc 99m Sestamibi - Stress images obtained [address] injection FINDINGS: Review of stress and rest SPECT images demonstrates prominent GI activity adjacent to the inferior wa ll. No distinct perfusion abnormality. Gated analysis shows normal wall motion with an estimated lef t ventricular ejection fraction of 69 %. TID calculated at 0.92, within normal limits. IMPRESSION: No scintigraphic evidence for reversible ischemia.
[2024-05-25 14:43] VITALS: BP 98/68; PULSE 95; RESP 16; TEMP 98.1
--- NOTE | 2024-05-25 17:17 | CA ---
Lexiscan Nuclear Stress Test Report Name: Agustina Simon Exam Date: 05/25/2024 12:42 Exam Location: [facility] Ht (in): 61 Wt (lb): 160 BSA: 1.72 Ordering Phys: Margret Gr Referring Phys: ,, Technologist: NEO Age: 39 Gender: F : 1985 Procedure CPT: Indications: Reflex order-Stress test ICD-10 Codes: Patient History: Medications: SEE CHART Meds past 24 hrs: Pretest Chest Pain: STRESS TEST Lexiscan Protocol Exercise Duration (min:sec): 02:[address] Depressions (mm): Angina Score: Damian Score: Resting HR (bpm): 67 Peak HR (bpm): 111 Resting BP (mmHg): 105 / 81 Peak BP (mmHg): / 66 MPHR: 179 Target HR: 152 % MPHR: 62 METS: 1.0 Total Dose: Peak Dose: Atropine: Double Product: BP Response: Stress Termination: PROTOCOL COMPLETE Stress Symptoms: NO SYMPTOMS Stress Summary: ECG ANALYSIS Resting ECG: Sinus rhythm. Normal conduction. No arrhythmias. Normal repolarization. Stress ECG: No ECG changes from baseline with Lexiscan infusion. CONCLUSIONS No ECG evidence of ischemia with Lexiscan infusion. Nuclear test results to follow. Dr. Shanique Lozada MD (Electronically Signed) Final Date: 25 May 2024 17:16
--- NOTE | 2024-05-29 18:03 | P.DS ---
Providers Date of admission: 05/24/24 05:41 Attending physician: Peter Milner MD Primary care physician: Nathanael Flaherty [place] Hospital Course: Diagnoses Back pain and chest pain currently resolved looks like related to her anxiety Anxiety and history of bipolar Hypokalemia most likely secondary to diuretic. Patient counseled to stop taking diuretics upon discharge chlorthalidone and she agrees Obesity with BMI of 30.2 Hospital course: Patient is a pleasant 39 years old female with past medical history of CVA, as patient states about 10 years ago however when asked her that she sees neurologist she says yes once after that event and when I asked her did he tell you you have stroke she answered he told me I can have kids after that I broke up with my . Her PCP Dr. Flaherty, she is on multiple medication including diuretic, chlorthalidone documented on of her medication, not verified yet though. This time she presents with chest pain and back pain, she states she woke up about 1:00 in the morning complaining from severe pain in her back that goes to the left chest felt like burning and lasted about 3.5 hours With no associated shortness of breath or coughin Patient states she has problems and stressful situation with her family for the last 2 weeks but she denies any hopelessness helplessness she denies homicidal or suicidal ideation. Patient evaluated by organ assembler. She underwent Lexiscan stress test which came back negative. Patient's symptoms improved Hyperkalemia corrected by dialysis staff and patient made aware and she agrees Patient was cleared for discharge by organ assembler Patient agrees to go home today. Problems and management plan were discussed with the patient and he verbalized understanding and acceptance Patient was found stable and can be discharged home in guarded prognosis however he needs follow-up as an outpatient. Patient was instructed to follow up with PCP Dr. Flaherty within one week and patient agrees Patient was instructed to follow-up with organ assembler Dr. Lozada in 1 week after discharge and she agrees Physical exam Gen: patient is a AAOx3, no distress CVS: S1-S2, RRR, no murmur Lungs: B/L CTA, no wheezing Abdomen: soft, no distention, no tenderness, positive bowel sounds Extremity: no leg edema or induration Time spent more than 35 minutes Patient Condition at Discharge: Stable Plan - Discharge Summary New Discharge Prescriptions: Continue Center Carbonate 600 mg PO HS Atorvastatin [Lipitor] 40 mg PO DAILY Glycopyrrolate 1 mg PO DAILY Propranolol LA [Inderal LA] 60 mg PO HS Acetaminophen Tab [Tylenol] 650 mg PO Q6H PRN PRN Reason: Fever And/ Or Pain ARIPiprazole IM SYRINGE [Abilify Maintena Syringe] 400 mg IM Q28D Aspirin EC [Ecotrin] 325 mg PO DAILY Doxylamine Succinate [Unisom] 25 mg PO HS PRN PRN Reason: Insomnia Discontinued Chlorthalidone 50 mg PO DAILY Discharge Medication List Atorvastatin [Lipitor] 40 mg PO DAILY 06/01/19 [History] Center Carbonate 600 mg PO HS 06/01/19 [History] ARIPiprazole IM SYRINGE [Abilify Maintena Syringe] 400 mg IM Q28D 05/28/22 [History] Glycopyrrolate 1 mg PO DAILY 05/28/22 [History] Acetaminophen Tab [Tylenol] 650 mg PO Q6H PRN 01/26/24 [History] Propranolol LA [Inderal LA] 60 mg PO HS 01/26/24 [History] Aspirin EC [Ecotrin] 325 mg PO DAILY 05/24/24 [History] Doxylamine Succinate [Unisom] 25 mg PO HS PRN 05/24/24 [History] Follow up Appointment(s)/Referral(s): Shanique Lozada MD [STAFF PHYSICIAN] - 1 Week Nathanael Flaherty DO [Primary Care Provider] - 1-2 days Patient Instructions/Handouts: Hypokalemia (DC), Generalized Anxiety Disorder (ED) Activity/Diet/Wound Care/Special Instructions: heart healthy diet activity is restricted till you see your doctor Discharge Disposition: HOME SELF-CARE
== END 2024-05-25 15:38 | disposition home or self-care (01) ==
LOC: EC 02:41 → 6NMEDSUR 05:41
PROVIDERS: ADMIT Internal Medicine; ATTEND Internal Medicine
DX: R07.89 Other chest pain (principal); M54.50 Low back pain, unspecified; F41.9 Anxiety disorder, unspecified; F31.9 Bipolar disorder, unspecified; E87.6 Hypokalemia; E66.9 Obesity, unspecified; Z68.30 Body mass index [BMI] 30.0-30.9, adult; Z86.73 Personal history of transient ischemic attack (TIA), and cerebral infarction without residual deficits; Z79.82 Long term (current) use of aspirin
CPT/HCPCS: 96360; 96361; 99285; 36415; 93005; 93308; 93017; 80053 ×2; 83735; 84132; 84484; 85025 ×2; 85610; 85730; 84703; 71046; 78452; G0378 ×2; A9500; J2785

== ENCOUNTER 2024-08-08 22:06 | Emergency (ER) | payer MEDICARE, OTHER ==
[2024-08-08 22:13] VITALS: RESP 20
[2024-08-08] MEDS: SODIUM CHLORIDE 0.9% 1,000 ML IV STA (22:45)
[2024-08-08] MEDS: ONDANSETRON 4 MG/2 ML VIAL IVP STA (22:56)
[2024-08-08 23:05] LABS: Basophils # (A) 0.1 k/uL (0-0.2); Basophils % (A) 1 %; Eosinophils # (A) 0.2 k/uL (0-0.7); Eosinophils % (A) 3 %; HCT 45.6 % (34.0-46.0); HGB 14.7 gm/dL (11.4-16.0); Lymphocytes # (A) 1.8 k/uL (1.0-4.8); Lymphocytes % (A) 19 %; MCH 30.6 pg (25.0-35.0); MCHC 32.3 g/dL (31.0-37.0); MCV 94.7 fL (80.0-100.0); Mean Platelet Volume 8.1; Monocytes # (A) 0.3 k/uL (0-1.0); Monocytes % (A) 3 %; Neutrophils # (A) 6.7 k/uL (1.3-7.7); Neutrophils % (A) 73 %; Platelet Count 271 k/uL (150-450); RBC 4.81 m/uL (3.80-5.40); RDW 13.2 % (11.5-15.5); WBC 9.2 k/uL (3.8-10.6)
[2024-08-08 23:10] LABS: Amorphous Sediment,Urine Rare /hpf; Appearance,Urine Cloudy (Clear); Bacteria,Urine Rare /hpf; Bilirubin,Urine Negative (Negative); Blood,Urine Small (Negative); Budding Yeast,Urine Rare /hpf; Color,Urine Light Yellow; Glucose,Urine (UA) Negative (Negative); Ketones,Urine Negative (Negative); Leukocyte Esterase,Urine Moderate (Negative); Mucus,Urine Few /hpf; Nitrite,Urine Negative (Negative); PH, Urine 5.5 (5.0-8.0); Protein,Urine Negative (Negative); RBC,Urine 2 /hpf (0-5); Specific Gravity,Urine 1.018 (1.001-1.035); Squamous Epithelial Cell,Urine 4 /hpf (0-4); Urobilinogen,Urine <2.0 mg/dL (<2.0); WBC,Urine 5 /hpf (0-5)
[2024-08-08] MEDS: ACETAMINOPHEN TAB 325 MG TAB PO STA (23:16)
[2024-08-08 23:17] LABS: ALT 29 U/L (4-34); AST 32 U/L (14-36); African American GFR (CKD) 89 (>60 ml/min/1.73 sqM); Albumin 4.3 g/dL (3.5-5.0); Alkaline Phosphatase 94 U/L (38-126); Amylase 39 U/L (30-110); Anion Gap 8 mmol/L; Blood Urea Nitrogen 16 mg/dL (7-17); Calcium 10.2 mg/dL (8.4-10.2); Carbon Dioxide 27 mmol/L (22-30); Chloride 105 mmol/L (98-107); Glucose 108 mg/dL (74-99); Lipase 48 U/L (23-300); Non-African American GFR(CKD) 77 (>60 ml/min/1.73 sqM); Potassium 4.1 mmol/L (3.5-5.1); Sodium 140 mmol/L (137-145); Total Bilirubin 0.6 mg/dL (0.2-1.3); Total Protein 7.2 g/dL (6.3-8.2)
--- NOTE | 2024-08-08 23:24 | ED ---
Nausea/Vomiting/Diarrhea HPI - General Chief complaint: Nausea/Vomiting/Diarrhea Stated complaint: NVD Time Seen by Provider: 08/08/24 23:23 Source: patient, RN notes reviewed Mode of arrival: ambulatory Limitations: no limitations - History of Present Illness Initial comments: 39-year-old female presented to the ER with a chief complaint of nausea vomiting diarrhea. Patient states this has been persistent for the past 2 weeks. She does report she missed her menstrual cycle this month and is concerned she may be as well. Patient states she is having generalized abdominal pain as well. Denies any fevers admits to chills. States she is able to keep food and liquids down. Denies any hematochezia or melena. No urinary complaints. Marisabel allen has not taken anything for her symptoms at this time. - Related Data Home Medications Medication Instructions Recorded Confirmed Atorvastatin [Lipitor] 40 mg PO DAILY 06/01/19 05/24/24 [place] Carbonate 600 mg PO HS 06/01/19 05/24/24 ARIPiprazole IM SYRINGE [Abilify 400 mg IM Q28D 05/28/22 05/24/24 Maintena Syringe] Glycopyrrolate 1 mg PO DAILY 05/28/22 05/24/24 Acetaminophen Tab [Tylenol] 650 mg PO Q6H PRN 01/26/24 05/24/24 Propranolol LA [Inderal LA] 60 mg PO HS 01/26/24 05/24/24 Aspirin EC [Ecotrin] 325 mg PO DAILY 05/24/24 05/24/24 Doxylamine Succinate [Unisom] 25 mg PO HS PRN 05/24/24 05/24/24 Previous Rx's Medication Instructions Recorded Ondansetron Odt [Zofran Odt] 4 mg PO Q8HR PRN #10 tab 08/09/24 Allergies Allergy/AdvReac Type Severity Reaction Status Date / Time prazosin Allergy Rash/Hives Verified 08/08/24 22:13 Review of Systems ROS Statement: Those systems with pertinent positive or pertinent negative responses have been documented in the HPI. ROS Other: All systems not noted in ROS Statement are negative. Past Medical History Past Medical History: CVA/TIA Additional Past Medical History / Comment(s): polycystic ovarian syndrome History of Any Multi-Drug Resistant Organisms: None Reported Past Surgical History: Unable to Obtain Additional Past Surgical History / Comment(s): 3- c-sections, wisdom teeth removed, thrombectomy Past Anesthesia/Blood Transfusion Reactions: No Reported Reaction Past Psychological History: Anxiety, Bipolar, Depression, Schizophrenia Smoking Status: Former smoker Past Alcohol Use History: None Reported Past Drug Use History: None Reported - Past Family History Father Family Medical History: No Reported History Additional Family Medical History / Comment(s): Father is alive with no major medical problems. Mother Family Medical History: No Reported History Additional Family Medical History / Comment(s): Mother is alive with no major medical problems. Brother(s) Additional Family Medical History / Comment(s): She has one sister with no healthe problems and one brother that at age 16 years from MVA. General Exam Limitations: no limitations General appearance: alert, in no apparent distress Respiratory exam: Present: normal lung sounds bilaterally. Absent: respiratory distress, wheezes, rales, rhonchi, stridor Cardiovascular Exam: Present: regular rate, normal rhythm, normal heart sounds. Absent: systolic murmur, diastolic murmur, rubs, gallop, clicks GI/Abdominal exam: Present: soft, tenderness (Left lower quadrant.), normal bowel sounds Skin exam: Present: warm, intact, normal color, diaphoretic Course Vital Signs 08/08/24 08/09/24 22:10 01:54 Temperature 97.3 F L 97.6 F Pulse Rate 82 79 Respiratory 20 20 Rate Blood Pressure 111/72 118/74 O2 Sat by Pulse 98 98 Oximetry Medical Decision Making - Medical Decision Making Was pt. sent in by a medical professional or institution (, PA, CULTURAL CENTRE MANAGER, urgent care, hospital, or fci...) When possible be specific @ -No Did you speak to anyone other than the patient for history (EMS, parent, family, police, friend...)? What history was obtained from this source @ -No Did you review nursing and triage notes (agree or disagree)? Why? @ -I reviewed and agree with nursing and triage notes Were old charts reviewed (outside hosp., previous admission, EMS record, old EKG, old radiological studies, urgent care reports/EKG's, fci records)? Report findings @ -No old charts were reviewed Differential Diagnosis (chest pain, altered mental status, abdominal pain women, abdominal pain men, vaginal bleeding, weakness, fever, dyspnea, syncope, headache, dizziness, GI bleed, back pain, seizure, CVA, palpatations, mental health, musculoskeletal)? @ -Differential Abdominal Pain Women:Appendicitis, Cholecystitis, diverticulosis, ischemic bowel, pancreatitis, hepatitis, UTI, gastroenteritis, AAA, incarcerated hernia, bowel obstruction, constipation, inflammatory bowel, hepatitis, peptic ulcer disease, splenic infarction, perforated viscus, vulvitis, ovarian torsion, PID, kidney stone, placenta abruption, this is not meant to be an all-inclusive list EKG interpreted by me (3pts min.). @ -As above X-rays interpreted by me (1pt min.). @ -None done CT interpreted by me (1pt min.). @ -CT abdomen pelvis negative for acute intra-abdominal process. U/S interpreted by me (1pt. min.). @ -None done What testing was considered but not performed or refused? (CT, X-rays, U/S, labs)? Why? @ -None What meds were considered but not given or refused? Why? @ -None Did you discuss the management of the patient with other professionals (professionals i.e. , PA, CULTURAL CENTRE MANAGER, lab, RT, psych nurse, high school social science teacher, entertainment lawyer, teacher, chairman & chief executive officer, outpatient case manager)? Give summary @ -No Was smoking cessation discussed for >3mins.? @ -No Was critical care preformed (if so, how long)? @ -No Were there social determinants of health that impacted care today? How? (Homelessness, low income, unemployed, alcoholism, drug addiction, transport ation, low edu. Level, literacy, decrease access to med. care, longterm, rehab)? @ -No Was there de-escalation of care discussed even if they declined (Discuss DNR or withdrawal of care, Hospice)? DNR status @ -No What co-morbidities impacted this encounter? (DM, HTN, Smoking, COPD, CAD, Cancer, CVA, ARF, Chemo, Hep., AIDS, mental health diagnosis, sleep apnea, morbid obesity)? @ -None Was patient admitted / discharged? Hospital course, mention meds given and route, prescriptions, significant lab abnormalities, going to OR and other pertinent info. @ -Discharge. 39-year-old female presented to ER with a chief complaint of nausea and vomiting. History and physical exam completed. Vitals upon my examination within normal limits. Patient is mildly diaphoretic on exam. No signs of acute distress. Exam remarkable for left lower quadrant abdominal tenderness. Normal bowel sounds. No rebound or guarding. CBC unremarkable. CMP also unremarkable. Urinalysis without evidence of infection. Urine hCG negative. Viral swabs negative. CT negative. Patient received symptomatic treatment in the ER, with improvement. Symptoms believed to be viral in nature. Patient eager for discharge upon reevaluation. Zofran prescribed. Advise close follow-up with PCP. Strict return parameters discussed. Patient discharged stable condition. Patient verbally expressed understanding and agreed with care plan. Case discussed with ED attending, Dr. Chen. Undiagnosed new problem with uncertain prognosis? @ -No Drug Therapy requiring intensive monitoring for toxicity (Heparin, Nitro, Insulin, Cardizem)? @ -No Were any procedures done? @ -No Diagnosis/symptom? @ -Nausea/vomiting/diarrhea Acute, or Chronic, or Acute on Chronic? @ -Acute Uncomplicated (without systemic symptoms) or Complicated (systemic symptoms)? @ -Uncomplicated Side effects of treatment? @ -No Exacerbation, Progression, or Severe Exacerbation? @ -No Poses a threat to life or bodily function? How? (Chest pain, USA, MS, pneumonia, PE, COPD, DKA, ARF, appy, cholecystitis, CVA, Diverticulitis, Homicidal, Suicidal, threat to staff... and all critical care pts) @ -No - Lab Data Result diagrams: 08/08/24 22:42 08/08/24 22:42 Lab Results 08/08/24 08/08/24 08/08/24 Range/Units 22:42 22:42 22:42 WBC 9.2 (3.8-10.6) k/uL RBC 4.81 (3.80-5.40) m/uL Hgb 14.7 (11.4-16.0) gm/dL Hct 45.6 (34.0-46.0) % MCV 94.7 (80.0-100.0) fL MCH 30.6 (25.0-35.0) pg MCHC 32.3 (31.0-37.0) g/dL RDW 13.2 (11.5-15.5) % Plt Count 271 (150-450) k/uL MPV 8.1 Neutrophils % 73 % Lymphocytes % 19 % Monocytes % 3 % Eosinophils % 3 % Basophils % 1 % Neutrophils # 6.7 (1.3-7.7) k/uL Lymphocytes # 1.8 (1.0-4.8) k/uL Monocytes # 0.3 (0-1.0) k/uL Eosinophils # 0.2 (0-0.7) k/uL Basophils # 0.1 (0-0.2) k/uL Sodium 140 (137-145) mmol/L Potassium 4.1 (3.5-5.1) mmol/L Chloride 105 (98-107) mmol/L Carbon Dioxide 27 (22-30) mmol/L Anion Gap 8 mmol/L BUN 16 (7-17) mg/dL Creatinine 0.93 (0.52-1.04) mg/dL Est GFR (CKD-EPI)AfAm 89 (>60 ml/min/1.73 sqM) Est GFR (CKD-EPI)NonAf 77 (>60 ml/min/1.73 sqM) Glucose 108 H (74-99) mg/dL Plasma Lactic Acid Livan (0.7-2.0) mmol/L Calcium 10.2 (8.4-10.2) mg/dL Total Bilirubin 0.6 (0.2-1.3) mg/dL AST 32 (14-36) U/L ALT 29 (4-34) U/L Alkaline Phosphatase 94 (38-126) U/L Total Protein 7.2 (6.3-8.2) g/dL Albumin 4.3 (3.5-5.0) g/dL Amylase 39 (30-110) U/L Lipase 48 (23-300) U/L Urine Color Light Yellow Urine Appearance Cloudy H (Clear) Urine pH 5.5 (5.0-8.0) Ur Specific Media 1.018 (1.001-1.035) Urine Protein Negative (Negative) Urine Glucose (UA) Negative (Negative) Urine Ketones Negative (Negative) Urine Blood Small H (Negative) Urine Nitrite Negative (Negative) Urine Bilirubin Negative (Negative) Urine Urobilinogen <2.0 (<2.0) mg/dL Ur Leukocyte Esterase Moderate H (Negative) Urine RBC 2 (0-5) /hpf Urine WBC 5 (0-5) /hpf Ur Squamous Epith Cells 4 (0-4) /hpf Amorphous Sediment Rare H (None) /hpf Urine Bacteria Rare H (None) /hpf Urine Mucus Few H (None) /hpf Urine Yeast (Budding) Rare H (None) /hpf Urine HCG, Qual (Not Detectd) Influenza Type A (PCR) (Not Detectd) Influenza Type B (PCR) (Not Detectd) RSV (PCR) (Not Detectd) SARS-CoV-2 (PCR) (Not Detectd) 08/08/24 08/08/24 08/09/24 Range/Units 22:42 22:42 00:11 WBC (3.8-10.6) k/uL RBC (3.80-5.40) m/uL Hgb (11.4-16.0) gm/dL Hct (34.0-46.0) % MCV (80.0-100.0) fL MCH (25.0-35.0) pg MCHC (31.0-37.0) g/dL RDW (11.5-15.5) % Plt Count (150-450) k/uL MPV Neutrophils % % Lymphocytes % % Monocytes % % Eosinophils % % Basophils % % Neutrophils # (1.3-7.7) k/uL Lymphocytes # (1.0-4.8) k/uL Monocytes # (0-1.0) k/uL Eosinophils # (0-0.7) k/uL Basophils # (0-0.2) k/uL Sodium (137-145) mmol/L Potassium (3.5-5.1) mmol/L Chloride (98-107) mmol/L Carbon Dioxide (22-30) mmol/L Anion Gap mmol/L BUN (7-17) mg/dL Creatinine (0.52-1.04) mg/dL Est GFR (CKD-EPI)AfAm (>60 ml/min/1.73 sqM) Est GFR (CKD-EPI)NonAf (>60 ml/min/1.73 sqM) Glucose (74-99) mg/dL Plasma Lactic Acid Livan 1.8 (0.7-2.0) mmol/L Calcium (8.4-10.2) mg/dL Total Bilirubin (0.2-1.3) mg/dL AST (14-36) U/L ALT (4-34) U/L Alkaline Phosphatase (38-126) U/L Total Protein (6.3-8.2) g/dL Albumin (3.5-5.0) g/dL Amylase (30-110) U/L Lipase (23-300) U/L Urine Color Urine Appearance (Clear) Urine pH (5.0-8.0) Ur Specific Media (1.001-1.035) Urine Protein (Negative) Urine Glucose (UA) (Negative) Urine Ketones (Negative) Urine Blood (Negative) Urine Nitrite (Negative) Urine Bilirubin (Negative) Urine Urobilinogen (<2.0) mg/dL Ur Leukocyte Esterase (Negative) Urine RBC (0-5) /hpf Urine WBC (0-5) /hpf Ur Squamous Epith Cells (0-4) /hpf Amorphous Sediment (None) /hpf Urine Bacteria (None) /hpf Urine Mucus (None) /hpf Urine Yeast (Budding) (None) /hpf Urine HCG, Qual Not Detected (Not Detectd) Influenza Type A (PCR) Not Detected (Not Detectd) Influenza Type B (PCR) Not Detected (Not Detectd) RSV (PCR) Not Detected (Not Detectd) SARS-CoV-2 (PCR) Not Detected (Not Detectd) - EKG Data -: EKG Interpreted by Me EKG Comments: EKG taken at 23: 18 showing a normal sinus rhythm with sinus arrhythmia. No ST segment elevations or depressions. No T wave inversions. Normal axis. Ventricular rate 74, WV interval 161, QRS duration 92, QT/QTc 420/448. - Radiology Data Radiology results: report reviewed, image reviewed Disposition Clinical Impression: Nausea & vomiting, Diarrhea Disposition: HOME SELF-CARE Condition: Stable Instructions (If sedation given, give patient instructions): Acute Nausea and Vomiting (ED) Additional Instructions: Follow-up with PCP. Return to the ER for any new or worsening concerns. Prescriptions: Ondansetron Odt [Zofran Odt] 4 mg PO Q8HR PRN #10 tab PRN Reason: Nausea Is patient prescribed a controlled substance at d/c from ED?: No Referrals: Nathanael Flaherty DO [Primary Care Provider] - 1-2 days Time of Disposition: 01:27
--- NOTE | 2024-08-08 23:58 | CT ---
EXAMINATION TYPE: CT abdomen pelvis w con DATE OF EXAM: 08/08/2024 HISTORY: +n/v/d x 2 weeks. neg HCG. h/o polycystic ovarian syndrome. CT DLP: 1237.8mGycm Automated Exposure Control for Dose Reduction was Utilized. CONTRAST: CT scan of the abdomen and pelvis is performed with IV Contrast, patient injected with 100 mL of Isov ue 300. COMPARISON: Prior CT 2019 FINDINGS: LUNG BASES: No significant abnormality is appreciated. LIVER/GB: No significant abnormality is appreciated. PANCREAS: No significant abnormality is seen. SPLEEN: No significant abnormality is seen. ADRENALS: No significant abnormality is seen. KIDNEYS: No significant abnormality is seen. BOWEL: No abnormal small or large bowel dilatation. UTERUS/ADNEXA: Anteverted uterus. Symmetric normal-size ovaries. No free fluid. LYMPH NODES: No greater than 1cm abdominal or pelvic lymph nodes are appreciated. OSSEOUS STRUCTURES: No significant abnormality is seen. OTHER: No significant additional abnormality is seen. IMPRESSION: No bowel obstruction. No significant new or acute finding is seen to account for patient' s clinical symptoms. [facility], , 08/08/2024 11:56 PM
[2024-08-09 01:55] VITALS: BP 118/74; PULSE 79; TEMP 97.6
== END 2024-08-09 01:55 | disposition home or self-care (01) ==
LOC: EC 22:06
CPT/HCPCS: 36415; 74177; 80053; 81001; 81025; 82150; 83605; 83690; 85025; 87636; 93005; 96360; 96361; 99284

== ENCOUNTER 2024-12-20 02:08 | Emergency (ER) | payer MEDICARE, OTHER ==
[2024-12-20] MEDS: DICYCLOMINE 10 MG/ML 2 ML AMP IM STA (02:53)
[2024-12-20] MEDS: FAMOTIDINE 20 MG/2 ML VIAL IV STA (02:54)
[2024-12-20] MEDS: PANTOPRAZOLE 40 MG/10 ML VIAL IVP STA (02:55)
--- NOTE | 2024-12-20 02:56 | ED ---
Abdominal Pain HPI - General Source: patient, EMS, RN notes reviewed Mode of arrival: EMS - History of Present Illness MD Complaint: abdominal pain Time: 12:00 Location: periumbilical, epigastric Radiation: none Migration to: no migration Quality: aching Consistency: intermittent Associated Symptoms: other (Fatigue) <Carlos Alberto Mtz - Last Filed: 12/20/24 02:52> <Car Hartmann - Last Filed: 12/20/24 08:10> - General Chief Complaint: Abdominal Pain Stated Complaint: Abdominal pain Time Seen by Provider: 12/20/24 02:19 - History of Present Illness Initial Comments: This is a well-known 39-year-old female with history of CVA/TIA and GERD presenting via EMS for abdominal pain since 1200 yesterday afternoon. Patient s tates mid abdominal pain is intermittent, described as aching. Patient states she suspects pain is being caused by COVID/flu. Endorses associated fatigue x 7 days. Denies recent sick contacts. Denies fever, chills, chest pain, dyspnea, N/V/D, dizziness, urinary symptoms, vaginal bleeding/discharge. (Carlos Alberto Mtz) - Related Data Home Medications Medication Instructions Recorded Confirmed Atorvastatin [Lipitor] 40 mg PO DAILY 06/01/19 05/24/24 [place] Carbonate 600 mg PO HS 06/01/19 05/24/24 ARIPiprazole IM SYRINGE [Abilify 400 mg IM Q28D 05/28/22 05/24/24 Maintena Syringe] Glycopyrrolate 1 mg PO DAILY 05/28/22 05/24/24 Acetaminophen Tab [Tylenol] 650 mg PO Q6H PRN 01/26/24 05/24/24 Propranolol LA [Inderal LA] 60 mg PO HS 01/26/24 05/24/24 Aspirin EC [Ecotrin] 325 mg PO DAILY 05/24/24 05/24/24 Doxylamine Succinate [Unisom] 25 mg PO HS PRN 05/24/24 05/24/24 Previous Rx's Medication Instructions Recorded Ondansetron Odt [Zofran Odt] 4 mg PO Q8HR PRN #10 tab 08/09/24 Allergies Allergy/AdvReac Type Severity Reaction Status Date / Time No Known Allergies Allergy Verified 12/20/24 02:15 Review of Systems ROS Other: All systems not noted in ROS Statement are negative. <Carlos Alberto Mtz - Last Filed: 12/20/24 02:52> ROS Other: All systems not noted in ROS Statement are negative. <Car Hartmann - Last Filed: 12/20/24 08:10> ROS Statement: Those systems with pertinent positive or pertinent negative responses have been documented in the HPI. Past Medical History Past Medical History: CVA/TIA Additional Past Medical History / Comment(s): polycystic ovarian syndrome History of Any Multi-Drug Resistant Organisms: None Reported Past Surgical History: Unable to Obtain Additional Past Surgical History / Comment(s): 3- c-sections, wisdom teeth removed, thrombectomy Past Anesthesia/Blood Transfusion Reactions: No Reported Reaction Past Psychological History: Anxiety, Bipolar, Depression, Schizophrenia Smoking Status: Former smoker Past Alcohol Use History: None Reported Past Drug Use History: None Reported - Past Family History Father Family Medical History: No Reported History Additional Family Medical History / Comment(s): Father is alive with no major medical problems. Mother Family Medical History: No Reported History Additional Family Medical History / Comment(s): Mother is alive with no major medical problems. Brother(s) Additional Family Medical History / Comment(s): She has one sister with no healthe problems and one brother that at age 16 years from MVA. <Carlos Alberto Mtz - Last Filed: 12/20/24 02:52> General Exam General appearance: alert, in no apparent distress Head exam: Present: atraumatic, normocephalic, normal inspection Eye exam: Present: normal appearance, PERRL, EOMI. Absent: scleral icterus, conjunctival injection, periorbital swelling ENT exam: Present: normal exam, mucous membranes moist Neck exam: Present: normal inspection. Absent: tenderness, meningismus, lymphadenopathy Respiratory exam: Present: normal lung sounds bilaterally. Absent: respiratory distress, wheezes, rales, rhonchi, stridor Cardiovascular Exam: Present: regular rate, normal rhythm, normal heart sounds. Absent: systolic murmur, diastolic murmur, rubs, gallop, clicks GI/Abdominal exam: Present: soft, normal bowel sounds. Absent: distended, tenderness, guarding, rebound, rigid Extremities exam: Present: normal inspection, full ROM, normal capillary refill. Absent: tenderness, pedal edema, joint swelling, calf tenderness Back exam: Present: normal inspection Neurological exam: Present: alert, oriented X3, CN II-XII intact Psychiatric exam: Present: normal affect, normal mood Skin exam: Present: warm, dry, intact, normal color. Absent: rash <Carlos Alberto Mtz - Last Filed: 12/20/24 02:52> Course Vital Signs 12/20/24 12/20/24 02:09 06:45 Temperature 98.2 F Pulse Rate 86 80 Respiratory 20 18 Rate Blood Pressure 148/54 116/76 O2 Sat by Pulse 99 98 Oximetry Medical Decision Making <Carlos Alberto Mtz - Last Filed: 12/20/24 02:52> - Lab Data Result diagrams: 12/20/24 02:44 12/20/24 02:44 <Car Hartmann - Last Filed: 12/20/24 08:10> - Medical Decision Making Was pt. sent in by a medical professional or institution (, EDU, CATERING TRUCK OPERATOR, urgent care, hospital, or fpc...) When possible be specific @ -[No] Did you speak to anyone other than the patient for history (EMS, parent, family, police, friend...)? What history was obtained from this source @ -[No] Did you review nursing and triage notes (agree or disagree)? Why? @ -[I reviewed and agree with nursing and triage notes] Were old charts reviewed (outside hosp., previous admission, EMS record, old EKG, old radiological studies, urgent care reports/EKG's, fpc records)? Report findings @ -[No old charts were reviewed] Differential Diagnosis (chest pain, altered mental status, abdominal pain women, abdominal pain men, vaginal bleeding, weakness, fever, dyspnea, syncope, headache, dizziness, GI bleed, back pain, seizure, CVA, palpatations, mental health, musculoskeletal)? @ -Differential Abdominal Pain Women: Appendicitis, Cholecystitis, diverticulosis, ischemic bowel, pancreatitis, hepatitis, UTI, gastroenteritis, AAA, incarcerated hernia, bowel obstruction, constipation, inflammatory bowel, hepatitis, peptic ulcer disease, splenic infarction, perforated viscus, vulvitis, ovarian torsion, PID, kidney stone, placenta abruption, this is not meant to be an all-inclusive list EKG interpreted by me (3pts min.). @ -Not done X-rays interpreted by me (1pt min.). @ -[None done] CT interpreted by me (1pt min.). @ -[None done] U/S interpreted by me (1pt. min.). @ -[None done] What testing was considered but not performed or refused? (CT, X-rays, U/S, labs)? Why? @ -[None] What meds were considered but not given or refused? Why? @ -[None] Did you discuss the management of the patient with other professionals (professionals i.e. , PA, CATERING TRUCK OPERATOR, lab, RT, psych nurse, social service manager, chief enterprise architect, teacher, operations officer afloat, protective services case worker)? Give summary @ -[No] Was smoking cessation discussed for >3mins.? @ -[No] Was critical care preformed (if so, how long)? @ -[No] Were there social determinants of health that impacted care today? How? (Homelessness, low income, unemployed, alcoholism, drug addiction, transportation, low edu. Level, literacy, decrease access to med. care, custodial, rehab)? @ -[No] Was there de-escalation of care discussed even if they declined (Discuss DNR or withdrawal of care, Hospice)? DNR status @ -[No] What co-morbidities impacted this encounter? (DM, HTN, Smoking, COPD, CAD, Cancer, CVA, ARF, Chemo, Hep., AIDS, mental health diagnosis, sleep apnea, morbid obesity)? @ -[None] Was patient admitted / discharged? Hospital course, mention meds given and route, prescriptions, significant lab abnormalities, going to OR and other pertinent info. @ -[hospital course] Undiagnosed new problem with uncertain prognosis? @ -[No] Drug Therapy requiring intensive monitoring for toxicity (Heparin, Nitro, Insulin, Cardizem)? @ -[No] Were any procedures done? @ -[No] Diagnosis/symptom? @ -[default] Acute, or Chronic, or Acute on Chronic? @ -Acute Uncomplicated (without systemic symptoms) or Complicated (systemic symptoms)? @ -Gated Side effects of treatment? @ -[No] Exacerbation, Progression, or Severe Exacerbation? @ -[No] Poses a threat to life or bodily function? How? (Chest pain, USA, ME, pneumonia, PE, COPD, DKA, ARF, appy, cholecystitis, CVA, Diverticulitis, Homicidal, Suicidal, threat to staff... and all critical care pts) @ -[No] (Carlos Alberto Mtz) - Lab Data Lab Results 12/20/24 12/20/24 12/20/24 Range/Units 02:44 02:44 02:44 WBC 8.9 (3.8-10.6) k/uL RBC 4.41 (3.80-5.40) m/uL Hgb 14.0 (11.4-16.0) gm/dL Hct 41.1 (34.0-46.0) % MCV 93.2 (80.0-100.0) fL MCH 31.8 (25.0-35.0) pg MCHC 34.1 (31.0-37.0) g/dL RDW 13.6 (11.5-15.5) % Plt Count 222 (150-450) k/uL MPV 7.7 Neutrophils % 62 % Lymphocytes % 26 % Monocytes % 6 % Eosinophils % 3 % Basophils % 1 % Neutrophils # 5.5 (1.3-7.7) k/uL Lymphocytes # 2.3 (1.0-4.8) k/uL Monocytes # 0.5 (0-1.0) k/uL Eosinophils # 0.3 (0-0.7) k/uL Basophils # 0.1 (0-0.2) k/uL Sodium 136 L (137-145) mmol/L Potassium 4.1 (3.5-5.1) mmol/L Chloride 104 (98-107) mmol/L Carbon Dioxide 24 (22-30) mmol/L Anion Gap 8 mmol/L BUN 15 (7-17) mg/dL Creatinine 0.79 (0.52-1.04) mg/dL Est GFR (CKD-EPI)AfAm >90 (>60 ml/min/1.73 sqM) Est GFR (CKD-EPI)NonAf >90 (>60 ml/min/1.73 sqM) Glucose 107 H (74-99) mg/dL Calcium 9.9 (8.4-10.2) mg/dL Total Bilirubin 0.4 (0.2-1.3) mg/dL AST 27 (14-36) U/L ALT 20 (4-34) U/L Alkaline Phosphatase 101 (38-126) U/L Total Protein 6.5 (6.3-8.2) g/dL Albumin 3.8 (3.5-5.0) g/dL Lipase 49 (23-300) U/L Urine Color Urine Appearance (Clear) Urine pH (5.0-8.0) Ur Specific [place] (1.001-1.035) Urine Protein (Negative) Urine Glucose (UA) (Negative) Urine Ketones (Negative) Urine Blood (Negative) Urine Nitrite (Negative) Urine Bilirubin (Negative) Urine Urobilinogen (<2.0) mg/dL Ur Leukocyte Esterase (Negative) Influenza Type A (PCR) Not Detected (Not Detectd) Influenza Type B (PCR) Not Detected (Not Detectd) RSV (PCR) Not Detected (Not Detectd) SARS-CoV-2 (PCR) Not Detected (Not Detectd) 12/20/24 Range/Units 05:26 WBC (3.8-10.6) k/uL RBC (3.80-5.40) m/uL Hgb (11.4-16.0) gm/dL Hct (34.0-46.0) % MCV (80.0-100.0) fL MCH (25.0-35.0) pg MCHC (31.0-37.0) g/dL RDW (11.5-15.5) % Plt Count (150-450) k/uL MPV Neutrophils % % Lymphocytes % % Monocytes % % Eosinophils % % Basophils % % Neutrophils # (1.3-7.7) k/uL Lymphocytes # (1.0-4.8) k/uL Monocytes # (0-1.0) k/uL Eosinophils # (0-0.7) k/uL Basophils # (0-0.2) k/uL Sodium (137-145) mmol/L Potassium (3.5-5.1) mmol/L Chloride (98-107) mmol/L Carbon Dioxide (22-30) mmol/L Anion Gap mmol/L BUN (7-17) mg/dL Creatinine (0.52-1.04) mg/dL Est GFR (CKD-EPI)AfAm (>60 ml/min/1.73 sqM) Est GFR (CKD-EPI)NonAf (>60 ml/min/1.73 sqM) Glucose (74-99) mg/dL Calcium (8.4-10.2) mg/dL Total Bilirubin (0.2-1.3) mg/dL AST (14-36) U/L ALT (4-34) U/L Alkaline Phosphatase (38-126) U/L Total Protein (6.3-8.2) g/dL Albumin (3.5-5.0) g/dL Lipase (23-300) U/L Urine Color Light Yellow Urine Appearance Clear (Clear) Urine pH 6.0 (5.0-8.0) Ur Specific [place] 1.012 (1.001-1.035) Urine Protein Negative (Negative) Urine Glucose (UA) Negative (Negative) Urine Ketones Negative (Negative) Urine Blood Negative (Negative) Urine Nitrite Negative (Negative) Urine Bilirubin Negative (Negative) Urine Urobilinogen <2.0 (<2.0) mg/dL Ur Leukocyte Esterase Negative (Negative) Influenza Type A (PCR) (Not Detectd) Influenza Type B (PCR) (Not Detectd) RSV (PCR) (Not Detectd) SARS-CoV-2 (PCR) (Not Detectd) Disposition <Carlos Alberto Mtz - Last Filed: 12/20/24 02:52> Is patient prescribed a controlled substance at d/c from ED?: No <Car Hartmann - Last Filed: 12/20/24 08:10> Clinical Impression: Abdominal pain Disposition: HOME SELF-CARE Condition: Good Instructions (If sedation given, give patient instructions): Abdominal Pain (ED) Referrals: None,Stated [REFERRING] - 1-2 days
[2024-12-20] MEDS: LIDOCAINE VISCOUS 2% 15 ML CUP PO ONE (02:57)
[2024-12-20 03:08] LABS: Basophils # (A) 0.1 k/uL (0-0.2); Basophils % (A) 1 %; Eosinophils # (A) 0.3 k/uL (0-0.7); Eosinophils % (A) 3 %; HCT 41.1 % (34.0-46.0); Lymphocytes # (A) 2.3 k/uL (1.0-4.8); Lymphocytes % (A) 26 %; MCH 31.8 pg (25.0-35.0); MCHC 34.1 g/dL (31.0-37.0); MCV 93.2 fL (80.0-100.0); Mean Platelet Volume 7.7; Monocytes # (A) 0.5 k/uL (0-1.0); Monocytes % (A) 6 %; Neutrophils # (A) 5.5 k/uL (1.3-7.7); Neutrophils % (A) 62 %; Platelet Count 222 k/uL (150-450); RBC 4.41 m/uL (3.80-5.40); RDW 13.6 % (11.5-15.5); WBC 8.9 k/uL (3.8-10.6)
[2024-12-20 03:22] LABS: ALT 20 U/L (4-34); AST 27 U/L (14-36); African American GFR (CKD) >90 (>60 ml/min/1.73 sqM); Albumin 3.8 g/dL (3.5-5.0); Alkaline Phosphatase 101 U/L (38-126); Anion Gap 8 mmol/L; Blood Urea Nitrogen 15 mg/dL (7-17); Calcium 9.9 mg/dL (8.4-10.2); Carbon Dioxide 24 mmol/L (22-30); Chloride 104 mmol/L (98-107); Glucose 107 mg/dL (74-99); Lipase 49 U/L (23-300); Non-African American GFR(CKD) >90 (>60 ml/min/1.73 sqM); Potassium 4.1 mmol/L (3.5-5.1); Sodium 136 mmol/L (137-145); Total Bilirubin 0.4 mg/dL (0.2-1.3); Total Protein 6.5 g/dL (6.3-8.2)
[2024-12-20 03:43] LABS: Influenza A Not Detected (Not Detectd); Influenza B Not Detected (Not Detectd); RSV Not Detected (Not Detectd)
[2024-12-20 06:00] LABS: Appearance,Urine Clear (Clear); Bilirubin,Urine Negative (Negative); Blood,Urine Negative (Negative); Color,Urine Light Yellow; Glucose,Urine (UA) Negative (Negative); Ketones,Urine Negative (Negative); Leukocyte Esterase,Urine Negative (Negative); Nitrite,Urine Negative (Negative); Protein,Urine Negative (Negative); Specific Gravity,Urine 1.012 (1.001-1.035); Urobilinogen,Urine <2.0 mg/dL (<2.0)
[2024-12-20 09:10] VITALS: BP 110/74; PULSE 90; RESP 20; TEMP 98.9
== END 2024-12-20 09:10 | disposition home or self-care (01) ==
LOC: EC 02:08
DX: R10.13 Epigastric pain (principal); Z86.73 Personal history of transient ischemic attack (TIA), and cerebral infarction without residual deficits; Z87.891 Personal history of nicotine dependence
CPT/HCPCS: 36415; 80053; 83690; 85025; 81003; 87636; 99284; 96374; 96375; 96372; J0500; J3490; J2470

== ENCOUNTER 2024-12-21 10:09 | Emergency (ER) | payer MEDICARE, OTHER ==
[2024-12-21 10:18] VITALS: RESP 18
--- NOTE | 2024-12-21 10:45 | ED ---
General Adult HPI - General Chief complaint: Neuro Symptoms/Deficit Stated complaint: weakness Time Seen by Provider: 12/21/24 10:19 Source: patient, RN notes reviewed, old records reviewed Mode of arrival: ambulatory Limitations: no limitations - History of Present Illness Initial comments: 39-year-old female presents for evaluation of generalized weakness and fluctuating focal weakness. Patient is a poor historian. She has a previous history of hemorrhagic stroke. Patient had initially reported a baseline weakness in the right lower extremity which she states is from prior CVA. She states that at times she feels weak on the left leg but this is currently resolved. She also states that her right hand had been numb without weakness. She denies significant headache. Denies fever. Denies vomiting or diarrhea. Patient had also reported a tremor in the left hand which was initially not present during history but upon exam patient developed a tremor. She states that she woke with the symptoms today but has had the symptoms several times in the past. - Related Data Home Medications Medication Instructions Recorded Confirmed Atorvastatin [Lipitor] 40 mg PO DAILY 06/01/19 05/24/24 [place] Carbonate 600 mg PO HS 06/01/19 05/24/24 ARIPiprazole IM SYRINGE [Abilify 400 mg IM Q28D 05/28/22 05/24/24 Maintena Syringe] Glycopyrrolate 1 mg PO DAILY 05/28/22 05/24/24 Acetaminophen Tab [Tylenol] 650 mg PO Q6H PRN 01/26/24 05/24/24 Propranolol LA [Inderal LA] 60 mg PO HS 01/26/24 05/24/24 Aspirin EC [Ecotrin] 325 mg PO DAILY 05/24/24 05/24/24 Doxylamine Succinate [Unisom] 25 mg PO HS PRN 05/24/24 05/24/24 Previous Rx's Medication Instructions Recorded Ondansetron Odt [Zofran Odt] 4 mg PO Q8HR PRN #10 tab 08/09/24 Allergies Allergy/AdvReac Type Severity Reaction Status Date / Time No Known Allergies Allergy Verified 12/21/24 10:18 Review of Systems ROS Statement: Those systems with pertinent positive or pertinent negative responses have been documented in the HPI. ROS Other: All systems not noted in ROS Statement are negative. Past Medical History Past Medical History: CVA/TIA Additional Past Medical History / Comment(s): polycystic ovarian syndrome History of Any Multi-Drug Resistant Organisms: None Reported Past Surgical History: Unable to Obtain Additional Past Surgical History / Comment(s): 3- c-sections, wisdom teeth removed, thrombectomy Past Anesthesia/Blood Transfusion Reactions: No Reported Reaction Past Psychological History: Anxiety, Bipolar, Depression, Schizophrenia Smoking Status: Former smoker Past Alcohol Use History: None Reported Past Drug Use History: None Reported - Past Family History Father Family Medical History: No Reported History Additional Family Medical History / Comment(s): Father is alive with no major medical problems. Mother Family Medical History: No Reported History Additional Family Medical History / Comment(s): Mother is alive with no major medical problems. Brother(s) Additional Family Medical History / Comment(s): She has one sister with no heal the problems and one brother that at age 16 years from MVA. General Exam Limitations: no limitations General appearance: alert, in no apparent distress Head exam: Present: atraumatic, normocephalic Eye exam: Present: normal appearance, PERRL ENT exam: Present: normal exam Neck exam: Present: normal inspection. Absent: tenderness, meningismus Respiratory exam: Present: normal lung sounds bilaterally. Absent: respiratory distress, wheezes Cardiovascular Exam: Present: regular rate, normal rhythm GI/Abdominal exam: Present: soft. Absent: distended, tenderness, guarding Extremities exam: Present: normal inspection, normal capillary refill. Absent: calf tenderness Neurological exam: Present: alert, oriented X3, CN II-XII intact, motor sensory deficit (Tremor to the left hand, no ataxia in the left upper extremity, normal strength in bilateral upper extremities, 5 out of 5 strength in bilateral lower extremities.) Psychiatric exam: Present: flat affect Skin exam: Present: warm, dry, intact Course Vital Signs 12/21/24 12/21/24 12/21/24 10:11 10:54 11:45 Temperature 98.1 F Pulse Rate 98 89 81 Respiratory 18 18 18 Rate Blood Pressure 128/79 127/78 117/82 O2 Sat by Pulse 100 100 99 Oximetry 12/21/24 13:10 Temperature Pulse Rate 84 Respiratory 18 Rate Blood Pressure 128/80 O2 Sat by Pulse 97 Oximetry - Reevaluation(s) Reevaluation #1: 12/21/24 12:23 Patient mother does indicate that she is quite paranoid and has been possibly hallucinating. Medical Decision Making - Medical Decision Making Was pt. sent in by a medical professional or institution ([facility] Villag[facility], REGISTERED NURSE, urgent care, hospital, or shelter...) When possible be specific @ -No Did you speak to anyone other than the patient for history (EMS, parent, family, police, friend...)? What history was obtained from this source @ -No Did you review nursing and triage notes (agree or disagree)? Why? @ -I reviewed and agree with nursing and triage notes Were old charts reviewed (outside hosp., previous admission, EMS record, old EKG, old radiological studies, urgent care reports/EKG's, shelter records)? Report findings @ -No old charts were reviewed Differential CVA Ischemic stroke, hemorrhagic stroke, brain tumor, atypical migraine, Wernicke's encephalopathy, seizure, multiple sclerosis, meningitis, encephalitis, hypoglycemia, Guillain-Che, electrolytes disturbance, myasthenia gravis.... This is not meant to be an all-inclusive list EKG interpreted by me (3pts min.). @ -Sinus rhythm rate of 85, CA interval 175, QRS duration 85, QTc [address] segment elevation. X-rays interpreted by me (1pt min.). @ -None done CT interpreted by me (1pt min.). @CT brain is negative for intracranial hemorrhage, prior surgical changes no acute findings. CT angiography is negative for acute occlusion or aneurysmal change. U/S interpreted by me (1pt. min.). @ -None done What testing was considered but not performed or refused? (CT, X-rays, U/S, labs)? Why? @ -None What meds were considered but not given or refused? Why? @ -None Did you discuss the management of the patient with other professionals (professionals i.e. [facility] Villagran, REGISTERED NURSE, lab, RT, psych nurse, certified social workers in health care, wire straightening machine operator, teacher, foreign policy officer, immigration case manager)? Give summary @Patient had been medically cleared and evaluated by EPS, felt to be safe for discharge. Was smoking cessation discussed for >3mins.? @ -No Was critical care preformed (if so, how long)? @ -No Were there social determinants of health that impacted care today? How? (Homelessness, low income, unemployed, alcoholism, drug addiction, transport ation, low edu. Level, literacy, decrease access to med. care, longterm, rehab)? @ -No Was there de-escalation of care discussed even if they declined (Discuss DNR or withdrawal of care, Hospice)? DNR status @ -No What co-morbidities impacted this encounter? (DM, HTN, Smoking, COPD, CAD, Cancer, CVA, ARF, Chemo, Hep., AIDS, mental health diagnosis, sleep apnea, morbid obesity)? @ -Previous CVA Was patient admitted / discharged? Hospital course, mention meds given and route, prescriptions, significant lab abnormalities, going to OR and other pertinent info. @ -39-year-old female with hide weakness and paresthesia which she relates to new psychiatric medication. Given the previous history of CVA I did perform CT CT angiography which was negative for acute findings. Patient is otherwise wel l-appearing with stable vitals. She is evaluated by EPS after being medically cleared and felt to be safe for discharge. I do agree with this assessment. Undiagnosed new problem with uncertain prognosis? @ -No Drug Therapy requiring intensive monitoring for toxicity (Heparin, Nitro, Insulin, Cardizem)? @ -No Were any procedures done? @ -No Diagnosis/symptom? @Medication side effect Acute, or Chronic, or Acute on Chronic? @ -Acute Uncomplicated (without systemic symptoms) or Complicated (systemic symptoms)? @ -Default Side effects of treatment? @ -No Exacerbation, Progression, or Severe Exacerbation? @ -No Poses a threat to life or bodily function? How? (Chest pain, USA, [place], pneumonia, PE, COPD, DKA, ARF, appy, cholecystitis, CVA, Diverticulitis, Homicidal, Suicidal, threat to staff... and all critical care pts) @ -No - Lab Data Result diagrams: 12/21/24 10:59 12/21/24 10:59 Lab Results 12/21/24 12/21/24 12/21/24 Range/Units 10:59 10:59 10:59 WBC 7.4 (3.8-10.6) k/uL RBC 4.46 (3.80-5.40) m/uL Hgb 13.5 (11.4-16.0) gm/dL Hct 41.2 (34.0-46.0) % MCV 92.3 (80.0-100.0) fL MCH 30.4 (25.0-35.0) pg MCHC 32.9 (31.0-37.0) g/dL RDW 13.6 (11.5-15.5) % Plt Count 215 (150-450) k/uL MPV 7.1 Neutrophils % 74 % Lymphocytes % 16 % Monocytes % 4 % Eosinophils % 4 % Basophils % 1 % Neutrophils # 5.5 (1.3-7.7) k/uL Lymphocytes # 1.2 (1.0-4.8) k/uL Monocytes # 0.3 (0-1.0) k/uL Eosinophils # 0.3 (0-0.7) k/uL Basophils # 0.1 (0-0.2) k/uL PT 11.1 (10.0-12.5) sec INR 1.0 (<1.2) APTT 26.4 (22.0-30.0) sec Sodium 138 (137-145) mmol/L Potassium 4.2 (3.5-5.1) mmol/L Chloride 106 (98-107) mmol/L Carbon Dioxide 28 (22-30) mmol/L Anion Gap 4 mmol/L BUN 16 (7-17) mg/dL Creatinine 0.80 (0.52-1.04) mg/dL Est GFR (CKD-EPI)AfAm >90 (>60 ml/min/1.73 sqM) Est GFR (CKD-EPI)NonAf >90 (>60 ml/min/1.73 sqM) Glucose 96 (74-99) mg/dL Calcium 9.5 (8.4-10.2) mg/dL Total Bilirubin 0.6 (0.2-1.3) mg/dL AST 24 (14-36) U/L ALT 21 (4-34) U/L Alkaline Phosphatase 101 (38-126) U/L Creatine Kinase 110 (30-135) U/L Troponin I (0.000-0.034) ng/mL Total Protein 6.1 L (6.3-8.2) g/dL Albumin 3.5 (3.5-5.0) g/dL Urine Color Urine Appearance (Clear) Urine pH (5.0-8.0) Ur Specific [place] (1.001-1.035) Urine Protein (Negative) Urine Glucose (UA) (Negative) Urine Ketones (Negative) Urine Blood (Negative) Urine Nitrite (Negative) Urine Bilirubin (Negative) Urine Urobilinogen (<2.0) mg/dL Ur Leukocyte Esterase (Negative) Urine RBC (0-5) /hpf Urine WBC (0-5) /hpf Ur Squamous Epith Cells (0-4) /hpf Urine Bacteria (None) /hpf Urine Mucus (None) /hpf 12/21/24 12/21/24 Range/Units 10:59 11:01 WBC (3.8-10.6) k/uL RBC (3.80-5.40) m/uL Hgb (11.4-16.0) gm/dL Hct (34.0-46.0) % MCV (80.0-100.0) fL MCH (25.0-35.0) pg MCHC (31.0-37.0) g/dL RDW (11.5-15.5) % Plt Count (150-450) k/uL MPV Neutrophils % % Lymphocytes % % Monocytes % % Eosinophils % % Basophils % % Neutrophils # (1.3-7.7) k/uL Lymphocytes # (1.0-4.8) k/uL Monocytes # (0-1.0) k/uL Eosinophils # (0-0.7) k/uL Basophils # (0-0.2) k/uL PT (10.0-12.5) sec INR (<1.2) APTT (22.0-30.0) sec Sodium (137-145) mmol/L Potassium (3.5-5.1) mmol/L Chloride (98-107) mmol/L Carbon Dioxide (22-30) mmol/L Anion Gap mmol/L BUN (7-17) mg/dL Creatinine (0.52-1.04) mg/dL Est GFR (CKD-EPI)AfAm (>60 ml/min/1.73 sqM) Est GFR (CKD-EPI)NonAf (>60 ml/min/1.73 sqM) Glucose (74-99) mg/dL Calcium (8.4-10.2) mg/dL Total Bilirubin (0.2-1.3) mg/dL AST (14-36) U/L ALT (4-34) U/L Alkaline Phosphatase (38-126) U/L Creatine Kinase (30-135) U/L Troponin I <0.012 (0.000-0.034) ng/mL Total Protein (6.3-8.2) g/dL Albumin (3.5-5.0) g/dL Urine Color Light Yellow Urine Appearance Clear (Clear) Urine pH 6.5 (5.0-8.0) Ur Specific [place] 1.014 (1.001-1.035) Urine Protein Negative (Negative) Urine Glucose (UA) Negative (Negative) Urine Ketones Negative (Negative) Urine Blood Negative (Negative) Urine Nitrite Negative (Negative) Urine Bilirubin Negative (Negative) Urine Urobilinogen <2.0 (<2.0) mg/dL Ur Leukocyte Esterase Moderate H (Negative) Urine RBC 1 (0-5) /hpf Urine WBC 5 (0-5) /hpf Ur Squamous Epith Cells 3 (0-4) /hpf Urine Bacteria Rare H (None) /hpf Urine Mucus Rare H (None) /hpf Disposition Clinical Impression: Paresthesia Disposition: HOME SELF-CARE Condition: Good Instructions (If sedation given, give patient instructions): Paresthesia (ED) Is patient prescribed a controlled substance at d/c from ED?: No Referrals: Nathanael Flaherty DO [Primary Care Provider] - 1-2 days Time of Disposition: 14:36
[2024-12-21] MEDS: SODIUM CHLORIDE 0.9% 1,000 ML IV STA (11:08)
[2024-12-21 11:18] LABS: Basophils # (A) 0.1 k/uL (0-0.2); Basophils % (A) 1 %; Eosinophils # (A) 0.3 k/uL (0-0.7); Eosinophils % (A) 4 %; HCT 41.2 % (34.0-46.0); HGB 13.5 gm/dL (11.4-16.0); Lymphocytes # (A) 1.2 k/uL (1.0-4.8); Lymphocytes % (A) 16 %; MCH 30.4 pg (25.0-35.0); MCHC 32.9 g/dL (31.0-37.0); MCV 92.3 fL (80.0-100.0); Mean Platelet Volume 7.1; Monocytes # (A) 0.3 k/uL (0-1.0); Monocytes % (A) 4 %; Neutrophils # (A) 5.5 k/uL (1.3-7.7); Neutrophils % (A) 74 %; Platelet Count 215 k/uL (150-450); RBC 4.46 m/uL (3.80-5.40); RDW 13.6 % (11.5-15.5); WBC 7.4 k/uL (3.8-10.6)
[2024-12-21 11:30] LABS: Partial Thromboplastin Time 26.4 sec (22.0-30.0); Prothrombin Time 11.1 sec (10.0-12.5)
[2024-12-21 11:31] LABS: ALT 21 U/L (4-34); AST 24 U/L (14-36); African American GFR (CKD) >90 (>60 ml/min/1.73 sqM); Albumin 3.5 g/dL (3.5-5.0); Alkaline Phosphatase 101 U/L (38-126); Anion Gap 4 mmol/L; Blood Urea Nitrogen 16 mg/dL (7-17); Calcium 9.5 mg/dL (8.4-10.2); Carbon Dioxide 28 mmol/L (22-30); Chloride 106 mmol/L (98-107); Creatine Kinase 110 U/L (30-135); Glucose 96 mg/dL (74-99); Non-African American GFR(CKD) >90 (>60 ml/min/1.73 sqM); Potassium 4.2 mmol/L (3.5-5.1); Sodium 138 mmol/L (137-145); Total Bilirubin 0.6 mg/dL (0.2-1.3); Total Protein 6.1 g/dL (6.3-8.2)
[2024-12-21 11:36] LABS: Appearance,Urine Clear (Clear); Bacteria,Urine Rare /hpf; Bilirubin,Urine Negative (Negative); Blood,Urine Negative (Negative); Color,Urine Light Yellow; Glucose,Urine (UA) Negative (Negative); Ketones,Urine Negative (Negative); Leukocyte Esterase,Urine Moderate (Negative); Mucus,Urine Rare /hpf; Nitrite,Urine Negative (Negative); PH, Urine 6.5 (5.0-8.0); Protein,Urine Negative (Negative); RBC,Urine 1 /hpf (0-5); Specific Gravity,Urine 1.014 (1.001-1.035); Squamous Epithelial Cell,Urine 3 /hpf (0-4); Urobilinogen,Urine <2.0 mg/dL (<2.0); WBC,Urine 5 /hpf (0-5)
--- NOTE | 2024-12-21 11:58 | CT ---
EXAMINATION TYPE: CT brain wo con DATE OF EXAM: 12/21/2024 11:42 AM COMPARISON: 01/26/2024 CLINICAL INDICATION: Female, 39 years old with history of Neuro deficit, acute, stroke suspected, wea kness, body pain and numbness to lower extremities. History of stroke, TECHNIQUE: Examination was done in axial plane without intravenous contrast. Coronal and sagittal r econstructions performed. CT DLP: 1100.6 mGycm, Automated exposure control for dose reduction was used. FINDINGS: Left lateral craniotomy flap. Encephalomalacia lateral left temporal lobe and left subinsular region relating to prior infarcts. Se condary mild ex vacuo enlargement of the left antrum is unchanged. There is no evidence of acute intracranial hemorrhage, acute ischemic changes, mass, mass-effect, or extra-axial fluid collection. There is no effacement of cerebral sulci or basal subarachnoid cister ns. There is no hydrocephalus. There is no midline shift. Castillo-white matter distinction is preserv ed. Trace mucosal thickening maxillary sinuses. Mastoid air cells well pneumatized. Orbits and globes are intact. IMPRESSION: Left lateral craniotomy flap. Underlying encephalomalacia lateral left temporal lobe and left subinsu lar region related to prior infarcts. No acute intracranial abnormality seen. [facility], Workstation: ED, 12/21/2024 11:55 AM
--- NOTE | 2024-12-21 12:04 | CT ---
EXAMINATION TYPE: CT angio head neck DATE OF EXAM: 12/21/2024 11:55 AM COMPARISON: CT head same day CLINICAL INDICATION: Female, 39 years old with history of Neuro deficit, acute, stroke suspected, wea kness, body pain and numbness to lower extremities. Hx of stroke, TECHNIQUE: Contiguous axial scanning of the head and neck performed with IV Contrast, patient injecte d with 370 mL of Isovue 370. Coronal and sagittal reconstructions performed. Reconstructions generate d on a dedicated independent workstation. CT DLP: 624.1 mGycm, Automated exposure control for dose reduction was used. FINDINGS: NECK: Loop recorder device anterior left upper chest wall. Conventional vessel branching anatomy. The vertebral arteries are codominant and patent throughout their course. The upper common carotid arteries demonstrate a retropharyngeal course. There is a retropharyngeal bifurcation on both sides and retropharyngeal bilateral ICAs. The bilateral common and internal carotid arteries are widely patent. NASCET criteria is utilized. HEAD: The bilateral vertebral and basilar arteries as well as the remainder of the posterior circulation is patent. Dural venous sinuses are patent. The bilateral internal carotid arteries and remainder of the anterior circulation is patent. Slightly hypoplastic A1 segment left anterior cerebral artery. IMPRESSION: 1. NECK: RETROPHARYNGEAL CAROTID ARTERIES. WIDELY PATENT CAROTID AND VERTEBRAL ARTERIES OF THE NECK. 2. HEAD: No large vessel intracranial arterial occlusion, significant stenosis, or aneurysmal change Is seen. [facility], , 12/21/2024 12:02 PM
[2024-12-21 14:56] VITALS: BP 133/98; PULSE 94; TEMP 98
== END 2024-12-21 14:57 | disposition home or self-care (01) ==
LOC: EC 10:09
DX: R20.2 Paresthesia of skin (principal); Z87.891 Personal history of nicotine dependence; Z86.73 Personal history of transient ischemic attack (TIA), and cerebral infarction without residual deficits
CPT/HCPCS: 82075; 36415; 93005; 80053; 82550; 84484; 85025; 85610; 85730; 81001; 70496; 70450; 70498; 99285; 96360; Q9967

== ENCOUNTER 2025-01-12 11:36 | Inpatient (IN) | payer MEDICARE, MEDICAID ==
--- NOTE | 2025-01-12 12:19 | ED ---
General Adult HPI <Yvon Suh - Last Filed: 01/12/25 15:44> - General Source: patient Mode of arrival: ambulatory <Bradley King - Last Filed: 01/13/25 07:40> - General Chief complaint: Psychiatric Symptoms Stated complaint: Mental health eval Time Seen by Provider: 01/12/25 12:01 - History of Present Illness Initial comments: Dictation was produced using [employer] dictation software. please excuse any grammatical, word or spelling errors. Chief Complaint: 39-year-old female presents for mental health evaluation History of Present Illness: Patient is a 39-year-old female presents to the emergency department for mental health evaluation. Patient states she has a history of psychiatric illness and is forced to live at a crisis home. She is not happy with the crisis home she states that. States that she felt sensation like somebody was going to kill her yesterday. Denies any suicidal homicidal ideation. Denies any visual auditory hallucinations. The ROS documented in this emergency department record has been reviewed and confirmed by me. Those systems with pertinent positive or negative responses have been documented in the HPI. All other systems are other negative and/or noncontributory. (Bradley King) - Related Data Home Medications Medication Instructions Recorded Confirmed Atorvastatin [Lipitor] 40 mg PO HS 06/01/19 01/12/25 [place] Carbonate 600 mg PO HS 06/01/19 01/12/25 Glycopyrrolate 1 mg PO DAILY 05/28/22 01/12/25 Aspirin EC [Ecotrin] 325 mg PO DAILY 05/24/24 01/12/25 OLANZapine [ZyPREXA] 5 mg PO HS 01/12/25 01/12/25 Propranolol [Inderal] 20 mg PO DAILY 01/12/25 01/12/25 Vitamin B Complex 1 cap PO DAILY 01/12/25 01/12/25 Vitamin D3 (Unknown Strength) 1 dose PO DAILY 01/12/25 01/12/25 Allergies Allergy/AdvReac Type Severity Reaction Status Date / Time No Known Allergies Allergy Verified 01/12/25 11:55 Review of Systems ROS Other: All systems not noted in ROS Statement are negative. <Yvon Suh - Last Filed: 01/12/25 15:44> ROS Other: All systems not noted in ROS Statement are negative. <Bradley King - Last Filed: 01/13/25 07:40> ROS Statement: Those systems with pertinent positive or pertinent negative responses have been documented in the HPI. Past Medical History Past Medical History: CVA/TIA Additional Past Medical History / Comment(s): polycystic ovarian syndrome History of Any Multi-Drug Resistant Organisms: None Reported Past Surgical History: Unable to Obtain Additional Past Surgical History / Comment(s): 3- c-sections, wisdom teeth removed, thrombectomy Past Anesthesia/Blood Transfusion Reactions: No Reported Reaction Past Psychological History: Anxiety, Bipolar, Depression, Schizophrenia Smoking Status: Former smoker Past Alcohol Use History: None Reported Past Drug Use History: None Reported - Past Family History Father Family Medical History: No Reported History Additional Family Medical History / Comment(s): Father is alive with no major medical problems. Mother Family Medical History: No Reported History Additional Family Medical History / Comment(s): Mother is alive with no major medical problems. Brother(s) Additional Family Medical History / Comment(s): She has one sister with no healthe problems and one brother that at age 16 years from MVA. <Bradley King - Last Filed: 01/13/25 07:40> General Exam <Bradley King - Last Filed: 01/13/25 07:40> - General Exam Comments Initial Comments: PHYSICAL EXAM: General Impression: Alert and oriented x3, not in acute distress HEENT: Normocephalic atraumatic, extra-ocular movements intact, pupils equal and reactive to light bilaterally, mucous membranes moist. Cardiovascular: Heart regular rate and rhythm Chest: Able to complete full sentences, no retractions, no tachypnea Abdomen: abdomen soft, non-tender, non-distended, no organomegaly Musculoskeletal: Pulses present and equal in all extremities, no peripheral edema Motor: no focal deficits noted Neurological: CN II-XII grossly intact, no focal motor or sensory deficits noted Skin: Intact with no visualized rashes Psych: Normal affect and mood (Bradley King) Course Vital Signs 01/12/25 01/12/25 01/12/25 11:43 14:55 17:58 Temperature 98.1 F 99.2 F Pulse Rate 102 H 86 106 H Respiratory 18 16 16 Rate Blood Pressure 134/82 130/75 124/78 O2 Sat by Pulse 97 98 96 Oximetry Medical Decision Making <FernandoBrendaadia Matute - Last Filed: 01/13/25 07:40> - Medical Decision Making Was pt. sent in by a medical professional or institution (, PA, FARM MACHINE TENDER, urgent care, hospital, or long-term...) When possible be specific @ -No Did you speak to anyone other than the patient for history (EMS, parent, family, police, friend...)? What history was obtained from this source @ -No Did you review nursing and triage notes (agree or disagree)? Why? @ -I reviewed and agree with nursing and triage notes Were old charts reviewed (outside hosp., previous admission, EMS record, old EKG, old radiological studies, urgent care reports/EKG's, long-term records)? Report findings @ -No old charts were reviewed Differential Diagnosis (chest pain, altered mental status, abdominal pain women, abdominal pain men, vaginal bleeding, musculoskeletal, weakness, fever, dyspnea, syncope, headache, dizziness, GI bleed, back pain, seizure, CVA, palpatations, mental health)? @ -Differential Mental Health: Depression, anxiety, bipolar, psychosis, schizophrenia, borderline personality, situational depression, adjustment disorder, behavioral disorder, brain tumor, malingering, substance abuse, encephalopathy, medication reaction, dementia, hypothyroidism, degenerative neurologic disorder, lupus.... This is not meant to be all-inclusive list EKG interpreted by me (3pts min.). @ -None done X-rays interpreted by me (1pt min.). @ -None done CT interpreted by me (1pt min.). @ -None done U/S interpreted by me (1pt. min.). @ -None done What testing was considered but not performed or refused? (CT, X-rays, U/S, labs)? Why? @ -None What meds were considered but not given or refused? Why? @ -None Was smoking cessation discussed for >3mins.? @ -No Were there social determinants of health that impacted care today? How? (Homelessness, low income, unemployed, alcoholism, drug addiction, transportation, low edu. Level, literacy, decrease access to med. care, halfway, rehab)? @ -No Was there de-escalation of care discussed even if they declined (Discuss DNR or withdrawal of care, Hospice)? DNR status @ -No What co-morbidities impacted this encounter? (DM, HTN, Smoking, COPD, CAD, Cancer, CVA, ARF, Chemo, Hep., AIDS, mental health diagnosis, sleep apnea, morbid obesity)? @ -None Was patient admitted / discharged? Hospital course, mention meds given and route, prescriptions, significant lab abnormalities, going to OR and other pertinent info. @ -39-year-old female presents to the ER for mental health evaluation. Vital signs stable. Breath alcohol test negative. Patient medically cleared for EPS. Patient admitted to inpatient psych Did you discuss the management of the patient with other professionals (professionals i.e. , PA, FARM MACHINE TENDER, lab, RT, psych nurse, social sciences department chair, jalousies installer, teacher, parole hearing officer, heel caser)? Give summary @ -Case discussed with EPS Was critical care preformed (if so, how long)? @ -No Undiagnosed new problem with uncertain prognosis? @ -No Drug Therapy requiring intensive monitoring for toxicity (Heparin, Nitro, Insulin, Cardizem)? @ -No Were any procedures done? @ -No Diagnosis/symptom? Acute, or Chronic, or Acute on Chronic? Uncomplicated (without systemic symptoms) or Complicated (systemic symptoms)? @ -Mental health evaluation Side effects of treatment? @ -No Exacerbation, Progression, or Severe Exacerbation? @ -No Poses a threat to life or bodily function? How? (Chest pain, [place], [place], pneumonia, PE, COPD, DKA, ARF, appy, cholecystitis, CVA, Diverticulitis, Homicidal, Suicidal, threat to staff... and all critical care pts) @ -No (Bradley King) - Lab Data Lab Results 01/12/25 Range/Units 15:06 Influenza Type A (PCR) Not Detected (Not Detectd) Influenza Type B (PCR) Not Detected (Not Detectd) RSV (PCR) Not Detected (Not Detectd) SARS-CoV-2 (PCR) Not Detected (Not Detectd) Disposition Is patient prescribed a controlled substance at d/c from ED?: No <Yvon Suh - Last Filed: 01/12/25 15:44> <Bradley King - Last Filed: 01/13/25 07:40> Clinical Impression: Acute psychosis, Acute anxiety, Anxiety Disposition: TRANSFER TO PSYCH HOSP/UNIT Condition: Fair
[2025-01-12 15:51] LABS: Influenza A Not Detected (Not Detectd); Influenza B Not Detected (Not Detectd); RSV Not Detected (Not Detectd)
[2025-01-12] MEDS ORDERED: IBUPROFEN 600 MG TAB PO PRN (16:27)
[2025-01-12] MEDS ORDERED: OLANZapine 5 MG TAB PO PRN (16:27)
[2025-01-12] MEDS ORDERED: MAGNESIUM HYDROXIDE 2,400 MG/30 ML CUP PO PRN (16:27)
[2025-01-12] MEDS ORDERED: MAG HYDROX/AL HYDROX/SIMETH 355 ML BOTTLE PO PRN (16:27)
[2025-01-12] MEDS ORDERED: OLANZapine 10 MG VIAL IM PRN (16:27)
[2025-01-12] MEDS: ATORVASTATIN 40 MG TAB PO SCH (20:47)
[2025-01-12] MEDS: OLANZapine 5 MG TAB PO SCH (20:47)
[2025-01-12] MEDS: LITHIUM CARBONATE 300 MG CAP PO SCH (20:47)
[2025-01-13] MEDS: GLYCOPYRROLATE 1 MG TAB PO SCH (07:52)
[2025-01-13] MEDS: ASPIRIN 325 MG TAB PO SCH (07:52)
[2025-01-13] MEDS: PROPRANOLOL 20 MG TAB PO SCH (07:52)
[2025-01-13 08:46] LABS: Basophils # (A) 0.1 k/uL (0-0.2); Basophils % (A) 1 %; Eosinophils # (A) 0.2 k/uL (0-0.7); Eosinophils % (A) 3 %; HCT 43.5 % (34.0-46.0); HGB 14.1 gm/dL (11.4-16.0); Lymphocytes # (A) 1.4 k/uL (1.0-4.8); Lymphocytes % (A) 18 %; MCH 30.3 pg (25.0-35.0); MCHC 32.5 g/dL (31.0-37.0); MCV 93.1 fL (80.0-100.0); Mean Platelet Volume 7.7; Monocytes # (A) 0.4 k/uL (0-1.0); Monocytes % (A) 5 %; Neutrophils # (A) 5.9 k/uL (1.3-7.7); Neutrophils % (A) 72 %; Platelet Count 246 k/uL (150-450); RBC 4.67 m/uL (3.80-5.40); WBC 8.2 k/uL (3.8-10.6)
[2025-01-13 09:22] LABS: Lithium 0.5 mmol/L
[2025-01-13 09:31] LABS: ALT 32 U/L (4-34); AST 35 U/L (14-36); African American GFR (CKD) >90 (>60 ml/min/1.73 sqM); Albumin 3.9 g/dL (3.5-5.0); Alkaline Phosphatase 96 U/L (38-126); Anion Gap 8 mmol/L; Bilirubin, Delta 0.2 mg/dL (0.0-0.2); Bilirubin,Unconjugated 0.6 mg/dL (0.0-1.1); Blood Urea Nitrogen 14 mg/dL (7-17); Calcium 9.7 mg/dL (8.4-10.2); Carbon Dioxide 22 mmol/L (22-30); Chloride 106 mmol/L (98-107); Glucose 109 mg/dL (74-99); Non-African American GFR(CKD) >90 (>60 ml/min/1.73 sqM); Potassium 4.7 mmol/L (3.5-5.1); Sodium 136 mmol/L (137-145); Total Bilirubin 0.8 mg/dL (0.2-1.3); Total Protein 6.6 g/dL (6.3-8.2)
--- NOTE | 2025-01-13 10:46 | P.HP ---
Psychiatric H&P - . H&P Date: 01/13/25 History & Physical: Allergies Allergy/AdvReac Type Severity Reaction Status Date / Time No Known Allergies Allergy Verified 01/12/25 11:55 Vital Signs Temp 97.9 F 01/13/25 06:54 Pulse 104 H 01/13/25 06:54 Resp 14 01/13/25 06:54 BP 121/76 01/13/25 06:54 Pulse Ox 96 01/13/25 06:54 FiO2 Intake & Output 01/12/25 01/13/25 01/13/25 18:59 06:59 18:59 Weight 96.615 kg 97.885 kg Laboratory Last Values WBC 8.2 k/uL (3.8-10.6) 01/13/25 08:08 RBC 4.67 m/uL (3.80-5.40) 01/13/25 08:08 Hgb 14.1 gm/dL (11.4-16.0) 01/13/25 08:08 Hct 43.5 % (34.0-46.0) 01/13/25 08:08 MCV 93.1 fL (80.0-100.0) 01/13/25 08:08 MCH 30.3 pg (25.0-35.0) 01/13/25 08:08 MCHC 32.5 g/dL (31.0-37.0) 01/13/25 08:08 RDW 14.0 % (11.5-15.5) 01/13/25 08:08 Plt Count 246 k/uL (150-450) 01/13/25 08:08 MPV 7.7 01/13/25 08:08 Neutrophils % 72 % 01/13/25 08:08 Lymphocytes % 18 % 01/13/25 08:08 Monocytes % 5 % 01/13/25 08:08 Eosinophils % 3 % 01/13/25 08:08 Basophils % 1 % 01/13/25 08:08 Neutrophils # 5.9 k/uL (1.3-7.7) 01/13/25 08:08 Lymphocytes # 1.4 k/uL (1.0-4.8) 01/13/25 08:08 Monocytes # 0.4 k/uL (0-1.0) 01/13/25 08:08 Eosinophils # 0.2 k/uL (0-0.7) 01/13/25 08:08 Basophils # 0.1 k/uL (0-0.2) 01/13/25 08:08 Sodium 136 mmol/L (137-145) L 01/13/25 08:08 Potassium 4.7 mmol/L (3.5-5.1) 01/13/25 08:08 Chloride 106 mmol/L (98-107) 01/13/25 08:08 Carbon Dioxide 22 mmol/L (22-30) 01/13/25 08:08 Anion Gap 8 mmol/L 01/13/25 08:08 BUN 14 mg/dL (7-17) 01/13/25 08:08 Creatinine 0.75 mg/dL (0.52-1.04) 01/13/25 08:08 Est GFR (CKD-EPI)AfAm >90 (>60 ml/min/1.73 sqM) 01/13/25 08:08 Est GFR (CKD-EPI)NonAf >90 (>60 ml/min/1.73 sqM) 01/13/25 08:08 Glucose 109 mg/dL (74-99) H 01/13/25 08:08 Calcium 9.7 mg/dL (8.4-10.2) 01/13/25 08:08 Total Bilirubin 0.8 mg/dL (0.2-1.3) 01/13/25 08:08 Conjugated Bilirubin 0.0 mg/dL (0.0-0.3) 01/13/25 08:08 Unconjugated Bilirubin 0.6 mg/dL (0.0-1.1) 01/13/25 08:08 Delta Bilirubin 0.2 mg/dL (0.0-0.2) 01/13/25 08:08 AST 35 U/L (14-36) 01/13/25 08:08 ALT 32 U/L (4-34) 01/13/25 08:08 Alkaline Phosphatase 96 U/L (38-126) 01/13/25 08:08 Total Protein 6.6 g/dL (6.3-8.2) 01/13/25 08:08 Albumin 3.9 g/dL (3.5-5.0) 01/13/25 08:08 TSH 2.110 mIU/L (0.465-4.680) 01/13/25 08:08 [place] 0.5 mmol/L 01/13/25 08:08 Influenza Type A (PCR) Not Detected (Not Detectd) 01/12/25 15:06 Influenza Type B (PCR) Not Detected (Not Detectd) 01/12/25 15:06 RSV (PCR) Not Detected (Not Detectd) 01/12/25 15:06 SARS-CoV-2 (PCR) Not Detected (Not Detectd) 01/12/25 15:06 01/13/25 10:16 IDENTIFYING DATA: Patient is a 39 yo female, she is she has 3 kids collect Social Security disability currently lives alone in an apartment. HPI: Patient presented to the hospital and was evaluated by EPS francesco and as per note "Patient presented to ER after fall requesting evaluation of mental health. Patient assessed in ER9 from 1243 to 1258. Patient appears anxious, restless, and shaky. Patient appears to have fair hygiene, presents in safety gown sitting on stretcher. Patient states that she was in a crisis bed for [address] Phelan referred her there. Patient states that she has a history of falls and needs a cane to walk, and [facility] and [facility] had a fall down them. Patient states that she "woke up yesterday feeling like I was in danger and someone is going to hurt me". Patient appears very suspicious and paranoid at this time. Patient states that she follows up with Dr. Phelan and he referred her to a crisis bed yesterday related to hallucinations and worried about her mental health. Patient states that she feels paranoid frequently but feels like she can manage herself in her own apartment. Patient denies suicidal and homicidal ideations. Patient denies current auditory or visual edwin lucinations. Patient expressed to RISK ENGINEER that she was having hallucinations yesterday. Patient denies alcohol or substance use. Spoke to Yosi at [facility] regarding patient. He states that [facility] found her the crisis bed related to Dr. Phelan recommendation. Expressed Dr. Phelan had concerns that patient has had increased paranoia, believing there are cameras in her apartment, unable to eat because she believes she is being poisioned, and believes that her mother is the one out to get her. Spoke to patient mother/guardian, Liliam. Liliam expressed that patient has been having ongoing issues with her mental health and she is concerned for her safety. She expresses that there has been changes to her medications lately and that they have not found a good medication regimen for the patient. Mother states that patient believes people are going into her apartment and that patient told her this morning that she believed she was raped this morning in her apartment because she had a weird feeling on her tongue. Patient mother expresses that patient has beliefs that she (the mother) is out to get her. Mother states that patient was doing fairly well up until the last 3 months. States patients last inpatient hospitalization was in 2019 related to psychosis." Patient was agreeable to speak to junior copywriter today in the office. She had difficulties with her speech, spoke in a soft tone of voice. Claims that she was feeling paranoid at the crisis bed that she was out at [facility]. Claims that she felt like "someone was trying to kill me". Believe that about the staff members. She claims that she also had a fall. States that she has a history of a stroke and also schizophrenia and PTSD and is being treated at [facility] by Dr. Curran as her psychiatrist. She claims that she was getting upset and a worker at the custodial took her to the hospital. She is denying any depression at this time denying any anxiety. She is not reporting any paranoia today, claims that her sleep has been on and off, appetite has been fair. Claims that she does take her medications at home and does regular follow-up. Patient denies any current suicidal or homicidal ideations intent or plan. At this time patient denies any auditory or visual hallucinations. Patient denies any flight of ideas racing thoughts and increased in goal directed behavior. Patient admits to using no recreational drugs or cigarettes PAST PSYCHIATRIC HISTORY: Patient has a history of stroke, schizophrenia and PTSD. Claims that she is currently on lithium, Zyprexa and propranolol. Claims that her last hospitalization was in 2016 on the mental health unit. States that she follows up at [facility] Dr. Curran is her psychiatrist. Patient denies any history of suicide attempts in the past. 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 Denies any legal history. Claims that she is she has 3 kids, she lives alone in an apartment, she collect Social Security disability. MENTAL STATUS EXAM: General Appearance: Patient appears to be overweight, thinning hair, stated age is alert, directable, and attempts to cooperate. Patient appears to have fair hygiene and grooming. Behavior: Patient is seated without any agitated behavior. Speech: Patient's speech is fluent and nonpressured. Hesitant at times, soft tone Mood/Affect: Patient reports their mood is "okay", affect is congruent and constricted. Suicidality/Homicidality: Patient denies having any homicidal ideation intent or plan. Denies any suicidal ideations intent or plan Perceptions: Patient denies any visual hallucinations and denies any auditory hallucinations Though content/process: There is no evidence of any delusional thought content and thought process is linear and goal-directed. Not endorsing paranoia today. Memory and concentration: AOX3, grossly intact for the purposes of this session. Can spell "WORLD" backwards Judgment and insight: Poor STRENGTHS/WEAKNESSES: strength is that patient is resilient. Weakness is that patient has poor judgment and is impulsive INTELLECT: Average IMPRESSIONS: Schizoaffective disorder History of PTSD History of CVA PLAN: -Patient is admitted under voluntary status to MHU for stabilization of psychiatric symptoms and safety. Patient has signed adult voluntary form and has not signed medication consent and is placed in patient's chart. -Medications : Continue with lithium 600 mg nightly for mood stabilization, propranolol 20 mg daily for akathisia/restlessness, Zyprexa 5 mg nightly for sleep/mood stabilization/psychosis -Ativan and Haldol PRN for agitation/aggression -Patient was informed of the risks, benefits and side effects of the medications and patient verbally consented to taking the medications. Patient signed med consent form and was placed in chart. Patient was offered medication information and accepted it -Internal Medicine consult to perform medical evaluation and physical. -NRT -not needed as patient does not smoke -SW on board for discharge planning. Encourage patient to participate in groups to work on coping skills. 01/13/25 10:30 01/13/25 10:42 01/13/25 10:45
[2025-01-13 13:14] LABS: Chol/HDL Ratio 2.48 Ratio; LDL Cholesterol,Calculated 47.1 mg/dL (0.0-131.0)
--- NOTE | 2025-01-13 19:03 | P.CONS ---
History of Present Illness - Reason for Consult Consult date: 01/13/25 medical H&P Requesting physician: Anders Palma - History of Present Illness This is a 39 year old female with reported medical history of stroke over 10 years ago patient states she was treated at [facility] as well as bipolar disorder. Patient comes in stating she was in a crisis bed for [address] Phelan from [facility] with complaints of feelings of increased anxiety and panic attacks. Patient states she is currently living alone in an apartment used to have a roommate in the past. She is currently unemployed. She is and reports having 3 kids via . Patient states on 3 seperate occasions while sleeping she became panicked and thought someone was in her house she became guarded and anxious she states she thought it was "rape" although it was a hallucination. She felt like someone was going to kill her. She came in for psychiatric evaluation. Patient is complaining of sore throat and horseness in her voice. She has not had any fever or chills. No shortness of breath or chest pain. Denies any nausea vomiting or diarrhea. She is awake alert and appropriate. Denies any smoking history, denies alcohol, and denies use of illicit substances. Viral panel is negative. Her white CBC is unremarkable. Sodium 136, glucose 109. REVIEW OF SYSTEMS: CONSTITUTIONAL: No fever, no malaise, no fatigue. HEENT: No recent visual problems or hearing problems. Reports sore throat and hoarseness in her voice CARDIOVASCULAR: No chest pain, orthopnea, PND, no palpitations, no syncope. PULMONARY: No shortness of breath, no cough, no hemoptysis. GASTROINTESTINAL: No diarrhea, no nausea, no vomiting, no abdominal pain. NEUROLOGICAL: No headaches, no weakness, no numbness. HEMATOLOGICAL: Denies any bleeding or petechiae. GENITOURINARY: Denies any burning micturition, frequency, or urgency. MUSCULOSKELETAL/RHEUMATOLOGICAL: Denies any joint pain, swelling, or any muscle pain. ENDOCRINE: Denies any polyuria or polydipsia. The rest of the 14-point review of systems is negative. PHYSICAL EXAMINATION: GENERAL: The patient is alert and oriented x3, not in any acute distress. Well developed, well nourished. HEENT: Pupils are round and equally reacting to light. EOMI. No scleral icterus. No conjunctival pallor. Normocephalic, atraumatic. No pharyngeal erythema. No thyromegaly. CARDIOVASCULAR: S1 and S2 present. No murmurs, rubs, or gallops. PULMONARY: Chest is clear to auscultation, no wheezing or crackles. ABDOMEN: Soft, nontender, nondistended, normoactive bowel sounds. No palpable organomegaly. MUSCULOSKELETAL: No joint swelling or deformity. EXTREMITIES: No cyanosis, clubbing, or pedal edema. NEUROLOGICAL: Gross neurological examination did not reveal any focal deficits. SKIN: No rashes. Assessment and Plan Hx schizoaffective disorder with hallucinations Bipolar disorder Anxiety/Depression PTSD hx Reported history of stroke 10 years ago Laryngitis Obesity Hx polycystic ovarian syndrome GI prophylaxis plan Continue home medications of zyprexa, lithium, propanolol continue aspirin and atorvastatin Continue cepacol lozenge Strep PCR ordered Medication adjustments per psychiatry Routine labs reviewed Thank you for this consultation The impression and plan of care has been dictated by Herminia Hahn, Nurse Practitioner as directed. Dr. Jean MD I have performed a history and physical examination and medical decision making of this patient, discussed the same with the dictator, and agree with the dictators assessment and plan as written, documented as a scribe. Based on total visit time, I have performed more than 50% of this visit. Past Medical History Past Medical History: CVA/TIA Additional Past Medical History / Comment(s): polycystic ovarian syndrome History of Any Multi-Drug Resistant Organisms: None Reported Past Surgical History: Unable to Obtain Additional Past Surgical History / Comment(s): 3- c-sections, wisdom teeth removed, thrombectomy Past Anesthesia/Blood Transfusion Reactions: No Reported Reaction Past Psychological History: Anxiety, Bipolar, Depression, Schizophrenia Smoking Status: Former smoker Past Alcohol Use History: None Reported Past Drug Use History: None Reported - Past Family History Father Family Medical History: No Reported History Additional Family Medical History / Comment(s): Father is alive with no major medical problems. Mother Family Medical History: No Reported History Additional Family Medical History / Comment(s): Mother is alive with no major medical problems. Brother(s) Additional Family Medical History / Comment(s): She has one sister with no healthe problems and one brother that at age 16 years from MVA. Medications and Allergies Home Medications Medication Instructions Recorded Confirmed Type Atorvastatin [Lipitor] 40 mg PO HS 06/01/19 01/12/25 History [place] Carbonate 600 mg PO HS 06/01/19 01/12/25 History Glycopyrrolate 1 mg PO DAILY 05/28/22 01/12/25 History Aspirin EC [Ecotrin] 325 mg PO DAILY 05/24/24 01/12/25 History OLANZapine [ZyPREXA] 5 mg PO HS 01/12/25 01/12/25 History Propranolol [Inderal] 20 mg PO DAILY 01/12/25 01/12/25 History Vitamin B Complex 1 cap PO DAILY 01/12/25 01/12/25 History Vitamin D3 (Unknown Strength) 1 dose PO DAILY 01/12/25 01/12/25 History Allergies Allergy/AdvReac Type Severity Reaction Status Date / Time No Known Allergies Allergy Verified 01/12/25 11:55 Physical Exam Vitals: Vital Signs Temp Pulse Resp BP Pulse Ox 01/13/25 06:54 97.9 F 104 H 14 121/76 96 01/12/25 19:20 97.6 F 103 H 16 133/77 98 Results CBC & Chem 7: 01/13/25 08:08 01/13/25 08:08 Labs: Abnormal Lab Results - Last 24 Hours (Table) 01/13/25 Range/Units 08:08 Sodium 136 L (137-145) mmol/L Glucose 109 H (74-99) mg/dL Assessment and Plan Time with Patient: Less than 30
[2025-01-13] MEDS: ACETAMINOPHEN TAB 325 MG TAB PO PRN (20:37)
[2025-01-14 07:24] VITALS: RESP 16
[2025-01-14 09:14] LABS: Appearance,Urine Clear (Clear); Bilirubin,Urine Negative (Negative); Blood,Urine Negative (Negative); Color,Urine Yellow; Glucose,Urine (UA) Negative (Negative); Ketones,Urine Negative (Negative); Leukocyte Esterase,Urine Negative (Negative); Nitrite,Urine Negative (Negative); Protein,Urine Negative (Negative); Specific Gravity,Urine 1.019 (1.001-1.035); Urobilinogen,Urine <2.0 mg/dL (<2.0)
--- NOTE | 2025-01-14 11:45 | P.PN ---
Progress Note - Text Progress Note Date: 01/14/25 Interval History: Patient was seen in the activity group she was agreeable to speak to production underwriter in the office today. She was playing cards today with other patients. States that she is doing a bit better claims that her anxiety is improving since being on the unit. Claims that she likes taking the propranolol during the day. Claims that she is not having any other side effects at this time. States that she is still having a bit of a sore throat at this time. Claims that she slept a lot y slept through the night, feels more energetic today. Claims that she does not know where she will be going what she is discharged, however does still want to follow-up with [facility]. Claims that her mood is improving, denies any paranoia or delusions at this time. Not reporting any suicidal homicidal ideations intent or plan denying any auditory or visual hallucinations. MENTAL STATUS EXAM: General Appearance: Patient appears to be overweight, thinning hair, stated age is alert, directable, and attempts to cooperate. Patient appears to have fair hygiene and grooming. Behavior: Patient is seated without any agitated behavior. Cooperative today Speech: Patient's speech is fluent and nonpressured. Hesitant at times, soft tone scratching voice Mood/Affect: Patient reports their mood is "ok", affect is congruent and constricted. Suicidality/Homicidality: Patient denies having any homicidal ideation intent or plan. Denies any suicidal ideations intent or plan Perceptions: Patient denies any visual hallucinations and denies any auditory hallucinations Though content/process: There is no evidence of any delusional thought content and thought process is linear and goal-directed. Not endorsing paranoia today. Memory and concentration: AOX3, grossly intact for the purposes of this session Judgment and insight: Poor, improving mildly IMPRESSIONS: Schizoaffective disorder History of PTSD History of CVA PLAN: -Patient is admitted under voluntary status to [facility] for stabilization of psychiatric symptoms and safety. Patient has signed adult voluntary form and has not signed medication consent and is placed in patient's chart. -Medications : lithium 600 mg nightly for mood stabilization, propranolol 20 mg daily for akathisia/restlessness, Zyprexa 5 mg nightly for sleep/mood stabilization/psychosis. will need to check lithium level, likely morning. -Ativan and Haldol PRN for agitation/aggression -NRT -not needed as patient does not smoke -SW on board for discharge planning. Encourage patient to participate in groups to work on coping skills. hopeful for discharge in 2-3 days after checking lithium level.
[2025-01-14 19:25] LABS: Urine Alcohol Negative (Negative); Urine Barbiturate Negative (Negative); Urine Cocaine Negative (Negative); Urine Methadone Negative (Negative); Urine Opiates Negative (Negative); Urine Phencyclidine Negative (Negative)
[2025-01-15] MEDS ORDERED: traZODone HCL 50 MG TAB PO PRN (10:07)
--- NOTE | 2025-01-15 10:26 | P.PN ---
Progress Note - Text Progress Note Date: 01/15/25 Interval History: Patient was seen in the activity group she was agreeable to speak to specification writer in the office today. She claims that she has been going to groups, participating with others. Claims that she feels "better" being on the medications. We spoke about the concern of possible noncompliance and better stabilization of her symptoms with being on a long-acting injection she was agreeable to this. Legal Records Manager spoke with patient's psychiatrist Dr. latham over the phone yesterday who expressed concern that patient is noncompliant with medications and would be more ideally controlled with a long-acting injection. She claims that her mood is "happier" and states that she is able to sleep at nighttime. Denies any issues with appetite at this time. denies any paranoia or delusions at this time. Not reporting any suicidal homicidal ideations intent or plan denying any auditory or visual hallucinations. MENTAL STATUS EXAM: General Appearance: Patient appears to be overweight, thinning hair, stated age is alert, directable, and attempts to cooperate. Patient appears to have fair hygiene and grooming. Behavior: Patient is seated without any agitated behavior. Cooperative today Speech: Patient's speech is fluent and nonpressured. Hesitant at times, soft tone scratching voice Mood/Affect: Patient reports their mood is "happier", affect is congruent and improving Suicidality/Homicidality: Patient denies having any homicidal ideation intent or plan. Denies any suicidal ideations intent or plan Perceptions: Patient denies any visual hallucinations and denies any auditory hallucinations Though content/process: There is no evidence of any delusional thought content and thought process is linear and goal-directed. Not endorsing paranoia today. Memory and concentration: AOX3, grossly intact for the purposes of this session Judgment and insight: improving mildly IMPRESSIONS: Schizoaffective disorder History of PTSD History of CVA PLAN: -Patient is admitted under voluntary status to [facility] for stabilization of psychiatric symptoms and safety. Patient has signed adult voluntary form and has not signed medication consent and is placed in patient's chart. -Medications : lithium 600 mg nightly for mood stabilization, check lithium level morning. propranolol 20 mg daily for akathisia/restlessness, d/c Zyprexa and replace with Abilify 5 mg daily for mood stabilization/psychosis with plan to transition onto [facility] to help ensure compliance. added trazodone 50 mg qhs prn for insomnia -Ativan and Haldol PRN for agitation/aggression -NRT -not needed as patient does not smoke -SW on board for discharge planning. Encourage patient to participate in groups to work on coping skills. hopeful for discharge tuesday after checking lithium level, unsure if patient is able to go to [facility] or back to her apartment.
[2025-01-15] MEDS: ARIPiprazole 5 MG TAB PO SCH (10:31)
--- NOTE | 2025-01-16 11:16 | P.PN ---
Progress Note - Text Progress Note Date: 01/16/25 Interval History: Patient was seen in the activity group she was agreeable to speak to keno writer / runner in the office today. Patient claims that she is doing a bit better today. Claims that she is tolerating the Abilify fairly well. Continues to be agreeable to go on the long-acting injection. States that she is not having any side effects at this time. Claims that her mood and anxiety have been improving mildly since yesterday. Claims that she slept fairly last night did not need the trazodone as needed. Has been eating, attending groups. Claims that she would like to go home after discharge. Denies any issues with appetite at this time. denies any paranoia or delusions at this time. Not reporting any suicidal homicidal ideations intent or plan denying any auditory or visual hallucinations. MENTAL STATUS EXAM: General Appearance: Patient appears to be overweight, thinning hair, stated age is alert, directable, and attempts to cooperate. Patient appears to have fair hygiene and grooming. Behavior: Patient is seated without any agitated behavior. Cooperative today Speech: Patient's speech is fluent and nonpressured. soft tone scratching voice, improving mildly Mood/Affect: Patient reports their mood is "good", affect is congruent and improving Suicidality/Homicidality: Patient denies having any homicidal ideation intent or plan. Denies any suicidal ideations intent or plan Perceptions: Patient denies any visual hallucinations and denies any auditory hallucinations Though content/process: There is no evidence of any delusional thought content and thought process is linear and goal-directed. Not endorsing paranoia today. Memory and concentration: AOX3, grossly intact for the purposes of this session Judgment and insight: improving mildly IMPRESSIONS: Schizoaffective disorder History of PTSD History of CVA PLAN: -Patient is admitted under voluntary status to [facility] for stabilization of psychiatric symptoms and safety. Patient has signed adult voluntary form and has not signed medication consent and is placed in patient's chart. -Medications : lithium 600 mg nightly for mood stabilization, check lithium level morning. propranolol 20 mg daily for akathisia/restlessness, increase Abilify 7.5 mg daily for mood stabilization/psychosis with plan to transition onto [facility] to help ensure compliance. trazodone 50 mg qhs prn for insomnia -Ativan and Haldol PRN for agitation/aggression -NRT -not needed as patient does not smoke -SW on board for discharge planning. Encourage patient to participate in groups to work on coping skills. hopeful for discharge tuesday after checking lithium level, patient will be going back to her apartment with increased [facility] services.
[2025-01-16] MEDS: ARIPiprazole 5 MG TAB PO ONE (11:34)
[2025-01-16] MEDS: BENZOCAINE/MENTHOL LOZENG 1 EACH LOZENGE MUCOUS MEM PRN (16:45)
[2025-01-17] MEDS: ARIPiprazole 5 MG TAB PO SCH (08:41)
--- NOTE | 2025-01-17 11:11 | P.PN ---
Progress Note - Text Progress Note Date: 01/17/25 Interval History: Patient was seen in the activity group she was agreeable to speak to appeals writer in the office today. She claims that she is listing about different things that she wants to do when she is discharged. Appears to have improving insight and judgment today. Claims that she is tolerating the Abilify fairly well, energy improving. Denies any depression or anxiety at this time. We spoke about increasing the Abilify dose to 10 mg that she is okay with. Claims that she slept about 4 or 5 hours last night. Has been eating well. Was asking about potential discharge tomorrow back home. Appetite improving. Not reporting any suicidal homicidal ideations intent or plan denying any auditory or visual hallucinations. MENTAL STATUS EXAM: General Appearance: Patient appears to be overweight, thinning hair, stated age is alert, directable, and attempts to cooperate. Patient appears to have fair hygiene and grooming. Behavior: Patient is seated without any agitated behavior. Cooperative today Speech: Patient's speech is fluent and nonpressured. soft tone scratching voice, improving mildly Mood/Affect: Patient reports their mood is "better", affect is congruent and improving Suicidality/Homicidality: Patient denies having any homicidal ideation intent or plan. Denies any suicidal ideations intent or plan Perceptions: Patient denies any visual hallucinations and denies any auditory hallucinations Though content/process: There is no evidence of any delusional thought content and thought process is linear and goal-directed. Not endorsing paranoia today. Memory and concentration: AOX3, grossly intact for the purposes of this session Judgment and insight: improving mildly IMPRESSIONS: Schizoaffective disorder History of PTSD History of CVA PLAN: -Patient is admitted under voluntary status to [facility] for stabilization of psychiatric symptoms and safety. Patient has signed adult voluntary form and has not signed medication consent and is placed in patient's chart. -Medications : lithium 600 mg nightly for mood stabilization. propranolol 20 mg daily for akathisia/restlessness, increase Abilify 10 mg daily for mood stabilization/psychosis with plan to transition onto [facility] to help ensure compliance will give Abilify maintenna tomorrow. trazodone 50 mg qhs prn for insomnia -lithium level 0.4 on 01/17 -Ativan and Haldol PRN for agitation/aggression -NRT -not needed as patient does not smoke -SW on board for discharge planning. Encourage patient to participate in groups to work on coping skills. hopeful for discharge tomorrow, patient will be going back to her apartment with increased [facility] services, [facility].
[2025-01-17] MEDS: ARIPiprazole 5 MG TAB PO ONE (12:59)
[2025-01-18 07:17] VITALS: BP 113/70; PULSE 102; TEMP 98
[2025-01-18] MEDS: ARIPiprazole 10 MG TAB PO SCH (09:01)
--- NOTE | 2025-01-18 11:28 | P.DS ---
Providers Date of admission: 01/12/25 16:09 Expected date of discharge: 01/18/25 Attending physician: Anders Palma MD Consults: 01/12/25 16:27 Consult Physician Routine Consulting Provider: [facility] Hospitalists Consult Reason/Comments: History and Physical, New Admission Do you want consulting provider notified?: Yes Primary care physician: Nathanael Flaherty - Discharge Diagnosis(es) (1) Schizoaffective disorder Current Visit: Yes Status: Acute Priority: High (2) History of posttraumatic stress disorder (PTSD) Current Visit: Yes Status: Acute Priority: Medium (3) History of CVA (cerebrovascular accident) Current Visit: Yes Status: Acute Priority: Medium Hospital Course: Admission HPI: Admission note was completed by filing writer " Patient is a 39 yo female, she is she has 3 kids collect Social Security disability currently lives alone in an apartment. Patient presented to the hospital and was evaluated by EPS francesco and as per note "Patient presented to ER after fall requesting evaluation of mental health. Patient assessed in ER9 from 1243 to 1258. Patient appears anxious, restless, and shaky. Patient appears to have fair hygiene, presents in safety gown sitting on stretcher. Patient states that she was in a crisis bed for [address] Phelan referred her there. Patient states that she has a history of falls and needs a cane to walk, and that the [facility] has stairs and she had a fall down them. Patient states that she "woke up yesterday feeling like I was in danger and someone is going to hurt me". Patient appears very suspicious and paranoid at this time. Patient states that she follows up with Dr. Phelan and he referred her to a crisis bed yesterday related to hallucinations and worried about her mental health. Patient states that she feels paranoid frequently but feels like she can manage herself in her own apartment. Patient denies suicidal and homicidal ideations. Patient denies current auditory or visual hallucinations. Patient expressed to [employer] PH[employer]ER[employer]IST that she was having hallucinations yesterday. Patient denies alcohol or substance use. Spoke to Yosi at [facility] regarding patient. He states that [facility] found her the crisis bed related to Dr. Phelan recommendation. Expressed Dr. Phelan had concerns that patient has had increased paranoia, believing there are cameras in her apartment, unable to eat because she believes she is being poisioned, and believes that her mother is the one out to get her. Spoke to patient mother/guardian, Liliam. Liliam expressed that patient has been having ongoing issues with her mental health and she is concerned for her safety. She expresses that there has been changes to her medications lately and that they have not found a good medication regimen for the patient. Mother states that patient believes people are going into her apartment and that patient told her this morning that she believed she was raped this morning in her apartment because she had a weird feeling on her tongue. Patient mother expresses that patient has beliefs that she (the mother) is out to get her. Mother states that patient was doing fairly well up until the last 3 months. States patients last inpatient hospitalization was in 2019 related to psychosis." Patient was agreeable to speak to filing writer today in the office. She had difficulties with her speech, spoke in a soft tone of voice. Claims that she was feeling paranoid at the crisis bed that she was out at [facility]. Claims that she felt like "someone was trying to kill me". Believe that about the staff members. She claims that she also had a fall. States that she has a history of a stroke and also schizophrenia and PTSD and is being treated at [facility] by Dr. Curran as her psychiatrist. She claims that she was getting upset and a worker at the [facility] took her to the hospital. She is denying any depression at this time denying any anxiety. She is not reporting any paranoia today, claims that her sleep has been on and off, appetite has been fair. Claims that she does take her medications at home and does regular follow-up. Patient denies any current suicidal or homicidal ideations intent or plan. At this time patient denies any auditory or visual hallucinations. Patient denies any flight of ideas racing thoughts and increased in goal directed behavior. Patient admits to using no recreational drugs or cigarettes" Hospital course: Upon admission to the unit patient was directable and agreeable to commence treatment and signed adult voluntary form. Patient was initially bizarre however with time and treatment patient got along well with other patients on the unit and followed unit protocol. Patient was compliant with the medications and denied any side effects throughout hospital course. Patient was started on Abilify increased to a dose of 10 mg p.o. daily for mood stabilization/psychosis, continued on home dose of lithium 600 mg nightly for mood stabilization, propranolol 20 mg daily for akathisia/restlessness. Due to concerns of symptom instability and also possibility of noncompliance with m edications, outpatient psychiatrist believes that patient could benefit more from a long-acting injection to help ensure the compliance. Frame Changer spoke with patient about this and she agreed to be transition onto Abilify Maintena 400 mg IM, first dose given on 01/18 next dose will be due at [facility] on 02/15. Patient spoke of her stressors and engaged in therapy both group/activity therapy. Patient was also seen by medical team for history and physical exam. Throughout the course of the hospitalization patient gradually improved with regards to mood, anxiety, psychosis, sleep and returned back to their baseline level of functioning. On the day of discharge patient denied any suicidal or homicidal ideations intent or plan denied any auditory or visual hallucinations. Patient endorsed wanting to live for their health and family. The patient denied any access to guns or weapons. Patient denied any paranoia and did not endorse any delusions. Patient does not have a significant history of substance abuse and was counseled on abstaining from all substances including alcohol and marijuana. Patient was also counseled on the medications and need for regular compliance and was encouraged to follow-up with their outpatient appointment for mental health and also for primary care. Prior to discharge a family meeting will be arranged by outreach and education social worker to answer any questions and ensure safety upon discharge incuding making sure that guns/weapons are either removed from the home or locked away. Patient will be going back to her apartment with increased [facility] services and contact for closer monitoring. Mental status exam: General Appearance: Patient appears to be mildly overweight, short hair, stated age is alert, pleasant, and cooperative. Patient is in no acute distress and has improved hygiene and grooming Behavior: Patient is calmly seated without any agitated behavior. Speech: Patient's speech is fluent and nonpressured. Mood/Affect: Patient reports their mood is "good", affect is congruent and euthymic. Suicidality/Homicidality: Patient denies having any suicidal or homicidal ideation intent or plan. Perceptions: Patient denies any auditory or visual hallucinations. Though content/process: There is no evidence of any delusional thought content and thought process is linear and goal-directed. More future oriented Memory and concentration: AOX3, grossly intact for the purposes of this session. Can spell "WORLD" backwards correctly. Judgment and insight: improved with guarded prognosis Impression: Schizoaffective disorder History of PTSD History of CVA Plan: -Continue with discharge today as patient has improved and stabilized psychiatrically and is not currently an imminent threat to themself and/or others. Patient will remain at chronically elevated risk for harm to self and/or others due to their impulsivity -Continue medications: Continue Abilify p.o. 10 mg nightly for mood stabilization/psychosis for 14 more days then discontinue. Patient was given Abilify Maintena 400 mg IM on 01/18 next dose will be due at [facility] on 02/15. [place] 600 mg nightly for mood stabilization, propranolol 20 mg daily for akathisia/restlessness. -Patient was counseled on the need for medication compliance and appropriate follow-up at mental health and also primary care for medical issues. Patient verbalized understanding and agreed. -Social work to help coordinate patients discharge today. also to ensure safe home environment that guns/weapons are either removed from the home or locked away. Social work also to arrange for patients follow up appointments with [facility] for psychiatric care along with follow up with primary care provider. -Patient counseled on abstaining from recreational drugs and marijuana and alcohol. Was informed/educated on the adverse effects on their physical and mental health. Patient verbally agreed and understood. -Patient was instructed to return to the hospital or seek immediate medical care if their psychiatric or medical symptoms do worsen or reoccur. Allergies Allergy/AdvReac Type Severity Reaction Status Date / Time No Known Allergies Allergy Verified 01/12/25 11:55 Laboratory Results WBC 8.2 k/uL (3.8-10.6) 01/13/25 08:08 RBC 4.67 m/uL (3.80-5.40) 01/13/25 08:08 Hgb 14.1 gm/dL (11.4-16.0) 01/13/25 08:08 Hct 43.5 % (34.0-46.0) 01/13/25 08:08 MCV 93.1 fL (80.0-100.0) 01/13/25 08:08 MCH 30.3 pg (25.0-35.0) 01/13/25 08:08 MCHC 32.5 g/dL (31.0-37.0) 01/13/25 08:08 RDW 14.0 % (11.5-15.5) 01/13/25 08:08 Plt Count 246 k/uL (150-450) 01/13/25 08:08 MPV 7.7 01/13/25 08:08 Neutrophils % 72 % 01/13/25 08:08 Lymphocytes % 18 % 01/13/25 08:08 Monocytes % 5 % 01/13/25 08:08 Eosinophils % 3 % 01/13/25 08:08 Basophils % 1 % 01/13/25 08:08 Neutrophils # 5.9 k/uL (1.3-7.7) 01/13/25 08:08 Lymphocytes # 1.4 k/uL (1.0-4.8) 01/13/25 08:08 Monocytes # 0.4 k/uL (0-1.0) 01/13/25 08:08 Eosinophils # 0.2 k/uL (0-0.7) 01/13/25 08:08 Basophils # 0.1 k/uL (0-0.2) 01/13/25 08:08 Sodium 136 mmol/L (137-145) L 01/13/25 08:08 Potassium 4.7 mmol/L (3.5-5.1) 01/13/25 08:08 Chloride 106 mmol/L (98-107) 01/13/25 08:08 Carbon Dioxide 22 mmol/L (22-30) 01/13/25 08:08 Anion Gap 8 mmol/L 01/13/25 08:08 BUN 14 mg/dL (7-17) 01/13/25 08:08 Creatinine 0.75 mg/dL (0.52-1.04) 01/13/25 08:08 Est GFR (CKD-EPI)AfAm >90 (>60 ml/min/1.73 sqM) 01/13/25 08:08 Est GFR (CKD-EPI)NonAf >90 (>60 ml/min/1.73 sqM) 01/13/25 08:08 Glucose 109 mg/dL (74-99) H 01/13/25 08:[address] Glu mg/dL 117 mg/dL 01/13/25 08:08 Hemoglobin A1c 5.7 % (<=6.0) 01/13/25 08:08 Calcium 9.7 mg/dL (8.4-10.2) 01/13/25 08:08 Total Bilirubin 0.8 mg/dL (0.2-1.3) 01/13/25 08:08 Conjugated Bilirubin 0.0 mg/dL (0.0-0.3) 01/13/25 08:08 Unconjugated Bilirubin 0.6 mg/dL (0.0-1.1) 01/13/25 08:08 Delta Bilirubin 0.2 mg/dL (0.0-0.2) 01/13/25 08:08 AST 35 U/L (14-36) 01/13/25 08:08 ALT 32 U/L (4-34) 01/13/25 08:08 Alkaline Phosphatase 96 U/L (38-126) 01/13/25 08:08 Total Protein 6.6 g/dL (6.3-8.2) 01/13/25 08:08 Albumin 3.9 g/dL (3.5-5.0) 01/13/25 08:08 Triglycerides 132.00 mg/dL (0.00-149.00) 01/13/25 08:08 Cholesterol 123.00 mg/dL (0.00-200.00) 01/13/25 08:08 LDL Cholesterol, Calc 47.1 mg/dL (0.0-131.0) 01/13/25 08:08 VLDL Cholesterol, Calc 26.40 mg/dL (5.00-40.00) 01/13/25 08:08 HDL Cholesterol 49.50 mg/dL (40.00-60.00) 01/13/25 08:08 Cholesterol/HDL Ratio 2.48 Ratio 01/13/25 08:08 TSH 2.110 mIU/L (0.465-4.680) 01/13/25 08:08 Urine Color Yellow 01/14/25 08:55 Urine Appearance Clear (Clear) 01/14/25 08:55 Urine pH 6.0 (5.0-8.0) 01/14/25 08:55 Ur Specific Ethan 1.019 (1.001-1.035) 01/14/25 08:55 Urine Protein Negative (Negative) 01/14/25 08:55 Urine Glucose (UA) Negative (Negative) 01/14/25 08:55 Urine Ketones Negative (Negative) 01/14/25 08:55 Urine Blood Negative (Negative) 01/14/25 08:55 Urine Nitrite Negative (Negative) 01/14/25 08:55 Urine Bilirubin Negative (Negative) 01/14/25 08:55 Urine Urobilinogen <2.0 mg/dL (<2.0) 01/14/25 08:55 Ur Leukocyte Esterase Negative (Negative) 01/14/25 08:55 Urine HCG, Qual Not Detected (Not Detectd) 01/14/25 08:55 Urine Opiates Screen Negative (Negative) 01/14/25 08:55 Urine Methadone Screen Negative (Negative) 01/14/25 08:55 Ur Propoxyphene Screen Negative (Negative) 01/14/25 08:55 Urine Barbiturates Negative (Negative) 01/14/25 08:55 Ur Phencyclidine Scrn Negative (Negative) 01/14/25 08:55 Ur Amphetamine Screen Negative (Negative) 01/14/25 08:55 U Benzodiazepines Scrn Negative (Negative) 01/14/25 08:55 [place] 0.4 mmol/L 01/17/25 08:05 Urine Cocaine Screen Negative (Negative) 01/14/25 08:55 U Cannabinoids Screen Negative (Negative) 01/14/25 08:55 Urine Alcohol Negative (Negative) 01/14/25 08:55 U Creatinine Drug Scrn 165.0 mg/dL (>=20.0) 01/14/25 08:55 Influenza Type A (PCR) Not Detected (Not Detectd) 01/12/25 15:06 Influenza Type B (PCR) Not Detected (Not Detectd) 01/12/25 15:06 RSV (PCR) Not Detected (Not Detectd) 01/12/25 15:06 SARS-CoV-2 (PCR) Not Detected (Not Detectd) 01/12/25 15:06 Group A Strep (PCR) NOT DETECTED (Not Detectd) 01/14/25 09:05 Vital Signs Temp 98.0 F 01/17/25 20:30 Pulse 102 H 01/17/25 20:30 Resp 16 01/17/25 20:30 BP 113/70 01/17/25 20:30 Pulse Ox 99 01/17/25 20:30 FiO2 Patient Condition at Discharge: Stable Plan - Discharge Summary New Discharge Prescriptions: New ARIPiprazole [Abilify] 10 mg PO HS 14 Days #14 tab ARIPiprazole IM [Abilify Maintena] 400 mg IM QMONTHLY #1 each [place] Carbonate 600 mg PO HS 30 Days #60 cap Continue Atorvastatin [Lipitor] 40 mg PO HS Glycopyrrolate 1 mg PO DAILY Vitamin B Complex 1 cap PO DAILY Propranolol [Inderal] 20 mg PO DAILY 30 Days #30 tab Aspirin EC [Ecotrin] 325 mg PO DAILY Vitamin D3 (Unknown Strength) 1 dose PO DAILY Discontinued [place] Carbonate 600 mg PO HS OLANZapine [ZyPREXA] 5 mg PO HS Discharge Medication List Atorvastatin [Lipitor] 40 mg PO HS 06/01/19 [History] Glycopyrrolate 1 mg PO DAILY 05/28/22 [History] Aspirin EC [Ecotrin] 325 mg PO DAILY 05/24/24 [History] Vitamin B Complex 1 cap PO DAILY 01/12/25 [History] Vitamin D3 (Unknown Strength) 1 dose PO DAILY 01/12/25 [History] ARIPiprazole IM [Abilify Maintena] 400 mg IM QMONTHLY #1 each 01/18/25 [Rx] ARIPiprazole [Abilify] 10 mg PO HS 14 Days #14 tab 01/18/25 [Rx] [place] Carbonate 600 mg PO HS 30 Days #60 cap 01/18/25 [Rx] Propranolol [Inderal] 20 mg PO DAILY 30 Days #30 tab 01/18/25 [Rx] Follow up Appointment(s)/Referral(s): [facility] [Outside] - 01/21/25 2:00 pm (01-21-25 at 2:00 with Jh Welch 01-29-25 at 12:[address] Phelan ) Nathanael Flaherty, [Primary Care Provider] - 1-2 days Patient Instructions/Handouts: Brief Psychotic Disorder (DC) Activity/Diet/Wound Care/Special Instructions: [facility] Discharge Info Avoid the use of street drugs and alcohol. Take all medications as prescribed. When you are in need of refills on your medications, please contact your outpatient medical provider and/or outpatient psychiatrist. Please go to your scheduled outpatient appointments for aftercare treatment. If symptoms return or become worse, call the crisis line at or and/or visit the nearest emergency room for assistance. National Suicide and Crisis Lifeline - call or text 988 Discharge Disposition: HOME SELF-CARE
[2025-01-18] MEDS: ARIPiprazole IM SYRINGE 400 MG (NO CHARGE) PHARMACY STOCK IM SCH (11:44)
== END 2025-01-18 12:30 | disposition home or self-care (01) | DRG 885 ==
LOC: EC 11:36 → 3MHU 16:09
PROVIDERS: ADMIT Psychiatry & Neurology Psychiatry; ATTEND Psychiatry & Neurology Psychiatry
DX: F25.9 Schizoaffective disorder, unspecified (principal); R45.851 Suicidal ideations; F31.9 Bipolar disorder, unspecified; E66.9 Obesity, unspecified; Z11.52 Encounter for screening for COVID-19; F41.0 Panic disorder [episodic paroxysmal anxiety]; Z68.35 Body mass index [BMI] 35.0-35.9, adult; F43.10 Post-traumatic stress disorder, unspecified; Z56.0 Unemployment, unspecified; Z79.82 Long term (current) use of aspirin; Z79.899 Other long term (current) drug therapy; Z86.73 Personal history of transient ischemic attack (TIA), and cerebral infarction without residual deficits; Z87.891 Personal history of nicotine dependence; Z91.81 History of falling; Z91.410 Personal history of adult physical and sexual abuse
CPT/HCPCS: 80053; 80061; 80178; 80306; 81003; 81025; 82075; 82248; 83036; 84443; 85025; 87636; 87651; 99285